=== PATIENT | female | born 1990 | race African-American/Black ===

== ENCOUNTER 2016-11-24 23:41 | Emergency (ER) | payer OTHER ==
[2016-11-25 00:08] VITALS: BP 110/66
[2016-11-25] MEDS ORDERED: Ondansetron ODT TAB* 4 MG PO ONE (00:09)
[2016-11-25 03:35] LABS: Hematocrit 38 % (35-47); Hemoglobin 12.2 g/dl (12.0-16.0); Mean Corpuscular HGB Conc 32 g/dl (31-36); Mean Corpuscular Hemoglobin 30 pg (27-31); Mean Corpuscular Volume 91 fL (80-97); Mean Platelet Volume 8 um3 (7.4-10.4); Red Blood Count 4.13 10^6/ul (4.0-5.4); Red Cell Distribution Width 14 % (10.5-15); White Blood Count 12.2 10^3/ul (3.5-10.8)
[2016-11-25 03:45] LABS: Albumin 4.3 g/dL (3.2-5.2); BUN/Creatinine Ratio 14.3 (8-20); Calcium 9.2 mg/dL (8.6-10.3); EGFR African American 80.8 (>60); EGFR Non-African American 62.9 (>60); Globulin 3.3 g/dL (2-4); Potassium 3.7 mmol/L (3.5-5.0); Total Bilirubin 0.4 mg/dL (0.2-1.0); Total Protein 7.6 g/dL (6.4-8.9)
[2016-11-25] MEDS ORDERED: Ibuprofen TAB* 400 MG PO ONE (04:50)
--- NOTE | 2016-12-13 16:22 | PN ---
Progress Note - Progress Note Note: Steph Townsend PA-C did not see this patient. Dr. Colvin was patients provider.
--- NOTE | 2016-12-16 10:46 | ED ---
Freddy Paz SooYoung, scribed for Da Colvin MD on 11/25/16 at 0253 . 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 She states her UE have been getting tingly often for past month. Pt has known ED. She says she had been walking a lot and was going to the grocery store and experienced SOB. Pt had been drinking earlier today, she is unsure of the amount. Today is her birthday, and she and others were pre-marguerite. She saw her PCP today for a weight check. PCP referred her to ED earlier today but she declined. She notes irregular menses, and is not on BC. She is a smoker. No PMHx of blood clots. - History Of Current Complaint Chief Complaint: EDSubstanceAbuse Stated Complaint: ETOH Time Seen by Provider: 11/25/16 00:09 Hx Obtained From: Patient Hx Last Menstrual Period: 2 weeks ago (approx 10/15/2016) Associated Signs And Symptoms: Shortness Of Breath, Other: - UE tingling - Allergies/Home Medications Allergies/Adverse Reactions: Allergies Allergy/AdvReac Type Severity Reaction Status Date / Time Diphenhydramine Allergy Difficulty Verified 11/27/16 10:34 [From Benadryl] Breathing/Wheezing Trazodone Allergy Difficulty Verified 11/27/16 10:34 Swallowing PMH/Surg Hx/FS Hx/Imm Hx Previously Healthy: No Endocrine/Hematology History: Reports: Hx Anemia Denies: Hx Anticoagulant Therapy, Hx Blood Disorders, Hx Blood Transfusions, Hx Bone Marrow Disease, Hx Diabetes, Hx Systemic Lupus Erythematosus, Hx Sickle Cell Disease, Hx Thyroid Disease, Hx Unexplained Bleeding, Other Endocrine/ Hematological Disorders Cardiovascular History: Denies: Hx Congestive Heart Failure, Hx Hypertension Respiratory History: Denies: Hx Asthma GI History: Reports: Hx Gastroesophageal Reflux Disease History: Denies: Hx Dialysis, Hx Renal Disease Musculoskeletal History: Reports: Hx Back Problems - low back pain from gymnastics Denies: Hx Arthritis, Hx Bursitis, Hx Congenital Bone Abnormalities, Hx Fibromyalgia, Hx Gout, Hx Orthopedic Injury, Hx Osteoporosis, Hx Scoliosis, Hx Tendonitis, Other Musculoskeletal History Sensory History: Reports: Hx Contacts or Glasses Opthamlomology History: Reports: Hx Contacts or Glasses Neurological History: Denies: Hx Dementia, Hx Developmental Delay, Hx Headaches, Hx Migraine, Hx Nerve Disease, Hx Seizures, Hx Spinal Cord Injury, Hx Transient Ischemic Attacks (TIA), Other Neuro Impairments/Disorders Psychiatric History: Reports: Hx Anxiety, Hx Attention Deficit Hyperactivity Disorder, Hx Eating Disorder, Hx Depression, Hx Panic Disorder, Hx Post Traumatic Stress Disorder, Hx Inpatient Treatment, Hx Community Mental Health Tx , Hx Suicide Attempt, Hx Substance Abuse Denies: Hx Schizophrenia, Hx Bipolar Disorder, Hx of Violent Episodes Against Others, Other Psychiatric Issues/Disorders - Surgical History Surgery Procedure, Year, and Place: pt denies - Immunization History Date of Tetanus Vaccine: Unknown Infectious Disease History: No Infectious Disease History: Denies: Hx Clostridium Difficile, Hx Hepatitis, Hx Human Immunodeficiency Virus (HIV), Hx of Known/Suspected MRSA, Hx Shingles, Hx Tuberculosis, History Other Infectious Disease, Traveled Outside the [place] in Last 30 Days - Family History Known Family History: Positive: Unknown - LEVEL 5 CAVEAT secondary to OD and AMS , Hypertension - Social History Occupation: Employed Part-time Lives: Alone Alcohol Use: Rare Hx Substance Use: No Substance Use Type: Reports: Prescribed Hx Tobacco Use: Yes Smoking Status (MU): Light Every Day Tobacco Smoker Type: Cigarettes Amount Used/How Often: 3 cigarettes or less daily Have You Smoked in the Last Year: Yes - states she smokes about three cigarettes per day Review of Systems Negative: Fever, Chills Negative: Erythema Negative: Sore Throat Negative: Chest Pain Positive: Shortness Of Breath. Negative: Cough Negative: Abdominal Pain, Vomiting, Nausea Negative: dysuria, hematuria Positive: Other - "tingling" in UE. Negative: Myalgia, Edema Negative: Rash Neurological: Other - neg: dizziness All Other Systems Reviewed And Are Negative: Yes Physical Exam - Summary Physical Exam Summary: Constitutional: Well-developed, Well-nourished, Alert. (-) Distressed Skin: Warm, Dry HENT: Normocephalic; Atraumatic Eyes: Conjunctiva normal Neck: Musculoskeletal ROM normal neck. (-) JVD, (-) Stridor, (-) Tracheal deviation Cardio: Rhythm regular, rate normal, Heart sounds normal; Intact distal pulses; The pedal pulses are 2+ and symmetric. Radial pulses are 2+ and symmetric. (-) Murmur Pulmonary/Chest wall: DIMINISHED BREATH SOUNDS IN LUNG BASES Abd: Soft, (-) Tenderness, (-) Distension, (-) Guarding, (-) Rebound Musculoskeletal: (-) Edema Lymph: (-) Cervical adenopathy Neuro: Alert, Oriented x3; NO ATAXIA Psych: Mood and affect Normal Triage Information Reviewed: Yes Vital Signs On Initial Exam: Initial Vitals Temp Pulse Resp BP Pulse Ox 98 F 93 16 110/66 98 11/25/16 00:04 11/25/16 00:04 11/25/16 00:04 11/25/16 00:04 11/25/16 00:04 Vital Signs Reviewed: Yes Diagnostics - Vital Signs Vital Signs Temp Pulse Resp BP Pulse Ox 11/25/16 00:04 98 F 93 16 110/66 98 - Laboratory Lab Results: Lab Results 11/25/16 11/25/16 Range/Units 03:15 03:15 WBC 12.2 H (3.5-10.8) 10^3/ul RBC 4.13 (4.0-5.4) 10^6/ul Hgb 12.2 (12.0-16.0) g/dl Hct 38 (35-47) % MCV 91 (80-97) fL MCH 30 (27-31) pg MCHC 32 (31-36) g/dl RDW 14 (10.5-15) % Plt Count 248 (150-450) 10^3/ul MPV 8 (7.4-10.4) um3 Sodium 137 (133-145) mmol/L Potassium 3.7 (3.5-5.0) mmol/L Chloride 105 (101-111) mmol/L Carbon Dioxide 23 (22-32) mmol/L Anion Gap 9 (2-11) mmol/L BUN 15 (6-24) mg/dL Creatinine 1.05 H (0.51-0.95) mg/dL Est GFR ( Amer) 80.8 (>60) Est GFR (Non-Af Amer) 62.9 (>60) BUN/Creatinine Ratio 14.3 (8-20) Glucose 73 (70-100) mg/dL Calcium 9.2 (8.6-10.3) mg/dL Total Bilirubin 0.40 (0.2-1.0) mg/dL AST 14 (13-39) U/L ALT 8 (7-52) U/L Alkaline Phosphatase 43 (34-104) U/L Total Protein 7.6 (6.4-8.9) g/dL Albumin 4.3 (3.2-5.2) g/dL Globulin 3.3 (2-4) g/dL Albumin/Globulin Ratio 1.3 (1-3) Serum Alcohol 74 H (<10) mg/dL Result Diagrams: 11/25/16 03:15 11/25/16 03:15 Lab Statement: Any lab studies that have been ordered have been reviewed, and results considered in the medical decision making process. Re-Evaluation - Re-Evaluation 1 Re-Evaluation Time: 04:47 Change: Improved Comment: Pt is alert, does not want to wait for d-dimer results, wants to leave. She understands risk of disability and . Course/Dx - Diagnoses Provider Diagnoses: Left against medical advice, SOB (shortness of breath) Discharge - Discharge Plan Condition: Fair Disposition: AGAINST MEDICAL ADVICE Referrals: Derek Torres MD [Primary Care Provider] - The documentation as recorded by the Freddy phipps SooYoung accurately reflects the service I personally performed and the decisions made by me, Da Colvin MD.
== END 2016-11-25 07:05 | disposition left against medical advice (07) ==
LOC: ED 23:41
DX: R06.02 Shortness of breath (principal); Z53.21 Procedure and treatment not carried out due to patient leaving prior to being seen by health care provider
CPT/HCPCS: 36415; 80053; 80320; 85027; 99283; A9270-GY; G0480

== ENCOUNTER 2016-11-27 10:24 | Emergency (ER) | payer OTHER ==
[2016-11-27 10:34] VITALS: BP 109/73
[2016-11-27] MEDS ORDERED: Ibuprofen TAB* 600 MG PO ONE (12:11)
[2016-11-27] MEDS ORDERED: Ondansetron ODT TAB* 4 MG PO ONE (12:12)
--- NOTE | 2016-11-27 12:13 | ED ---
Influenza-Like Illness - HPI Summary HPI Summary: 26 F w/ PMH of eating disorder presents with flu like symptoms. She is complaining of sore throat, headache, body aches, nausea, and chest tightness. She states that all of the symptoms started at once out of the blue. She has taken naproxen last night which helped with the body aches. She denies any fever, cough, neck pain, abdominal pain, diarrhea or constipation. She has been able to tolerate PO intake and fluids. - History of Current Complaint Chief Complaint: EDFluSymptoms Time Seen by Provider: 11/27/16 12:01 - Allergy/Home Medications Allergies/Adverse Reactions: Allergies Allergy/AdvReac Type Severity Reaction Status Date / Time Diphenhydramine Allergy Difficulty Verified 11/27/16 10:34 [From Benadryl] Breathing/Wheezing Trazodone Allergy Difficulty Verified 11/27/16 10:34 Swallowing PMH/Surg Hx/FS Hx/Imm Hx Endocrine/Hematology History: Reports: Hx Anemia Denies: Hx Anticoagulant Therapy, Hx Blood Disorders, Hx Blood Transfusions, Hx Bone Marrow Disease, Hx Diabetes, Hx Systemic Lupus Erythematosus, Hx Sickle Cell Disease, Hx Thyroid Disease, Hx Unexplained Bleeding, Other Endocrine/ Hematological Disorders Cardiovascular History: Denies: Hx Congestive Heart Failure, Hx Hypertension Respiratory History: Denies: Hx Asthma GI History: Reports: Hx Gastroesophageal Reflux Disease History: Denies: Hx Dialysis, Hx Renal Disease Musculoskeletal History: Reports: Hx Back Problems - low back pain from gymnastics Denies: Hx Arthritis, Hx Bursitis, Hx Congenital Bone Abnormalities, Hx Fibromyalgia, Hx Gout, Hx Orthopedic Injury, Hx Osteoporosis, Hx Scoliosis, Hx Tendonitis, Other Musculoskeletal History Sensory History: Reports: Hx Contacts or Glasses Opthamlomology History: Reports: Hx Contacts or Glasses Neurological History: Denies: Hx Dementia, Hx Developmental Delay, Hx Headaches, Hx Migraine, Hx Nerve Disease, Hx Seizures, Hx Spinal Cord Injury, Hx Transient Ischemic Attacks (TIA), Other Neuro Impairments/Disorders Psychiatric History: Reports: Hx Anxiety, Hx Attention Deficit Hyperactivity Disorder, Hx Eating Disorder, Hx Depression, Hx Panic Disorder, Hx Post Traumatic Stress Disorder, Hx Inpatient Treatment, Hx Community Mental Health Tx , Hx Suicide Attempt, Hx Substance Abuse Denies: Hx Schizophrenia, Hx Bipolar Disorder, Hx of Violent Episodes Against Others, Other Psychiatric Issues/Disorders - Surgical History Surgery Procedure, Year, and Place: pt denies - Immunization History Date of Tetanus Vaccine: Unknown Infectious Disease History: No Infectious Disease History: Denies: Hx Clostridium Difficile, Hx Hepatitis, Hx Human Immunodeficiency Virus (HIV), Hx of Known/Suspected MRSA, Hx Shingles, Hx Tuberculosis, History Other Infectious Disease, Traveled Outside the [place] in Last 30 Days - Family History Known Family History: Positive: Unknown - LEVEL 5 CAVEAT secondary to OD and AMS , Hypertension - Social History Alcohol Use: Rare Hx Substance Use: No Substance Use Type: Reports: Prescribed Hx Tobacco Use: Yes Smoking Status (MU): Light Every Day Tobacco Smoker Type: Cigarettes Amount Used/How Often: 3 cigarettes or less daily Have You Smoked in the Last Year: Yes - states she smokes about three cigarettes per day Review of Systems Negative: Fever Positive: Other - chest tightness. Negative: Chest Pain Negative: Shortness Of Breath, Cough Positive: Nausea. Negative: Abdominal Pain, Vomiting, Diarrhea Negative: dysuria Positive: Headache All Other Systems Reviewed And Are Negative: Yes Physical Exam Triage Information Reviewed: Yes Vital Signs On Initial Exam: Initial Vitals Temp Pulse Resp BP Pulse Ox 98.3 F 100 16 109/73 100 11/27/16 10:25 11/27/16 10:25 11/27/16 10:25 11/27/16 10:25 11/27/16 10:25 Vital Signs Reviewed: Yes Appearance: Positive: Well-Appearing Skin: Positive: Warm, Dry Head/Face: Positive: Normal Head/Face Inspection Eyes: Positive: Normal, Conjunctiva Clear ENT: Positive: Normal ENT inspection, Pharyngeal erythema, Nasal congestion, TMs normal. Negative: Tonsillar swelling, Tonsillar exudate, Trismus, Muffled/ hoarse voice Neck: Positive: Supple, Nontender, No Lymphadenopathy Respiratory/Lung Sounds: Positive: Clear to Auscultation, Breath Sounds Present , Other - chest wall nontender Cardiovascular: Positive: Normal, RRR Abdomen Description: Positive: Nontender, Soft Bowel Sounds: Positive: Present Diagnostics - Vital Signs Vital Signs Temp Pulse Resp BP Pulse Ox 11/27/16 10:25 98.3 F 100 16 109/73 100 - Laboratory Lab Statement: Any lab studies that have been ordered have been reviewed, and results considered in the medical decision making process. Re-Evaluation - Re-Evaluation First Eval Re-Evaluation Time: 13:00 Change: Improved Comment: feeling much better after zofran and ibuprofren would like to go home Flu Symptom Course/Dx - Course Course Of Treatment: 26 F presents with ore throat, headache, body aches, nausea. denies any fever or cough. has taken tyenlol for muscle aches, PE normal, got flu and strept swap and negative, able to tolerate PO intake, discussed does not want labs as feels is likely viral due to sudden onset, will treat symptomatically patient agrees with plan - Diagnoses Differential Diagnosis/HQI/PQRI: Positive: Bronchitis, Influenza, Upper Respiratory Infection Provider Diagnoses: Upper respiratory infection Discharge - Discharge Plan Condition: Good Disposition: HOME Prescriptions: Ondansetron TAB* [Zofran Tab*] 4 mg PO Q6H PRN #12 tab PRN Reason: Nausea Patient Education Materials: Upper Respiratory Infection (ED) Forms: *Work Release Referrals: Derek Torres MD [Primary Care Provider] - Additional Instructions: Take ibuprofen for muscle aches and fever. Take zofran every 6 hours for nausea Saline rinse can be used multiple times a day for nasal congestion Use humidifier in room or place bowls of warm water around room Try to drink fluids every hour and eat a small snack every 3 hours Return to ED if develop fever that does not respond to Tylenol or ibuprofen, new productive cough, or if symptoms become worst or develop new symptoms.
== END 2016-11-27 13:15 | disposition home or self-care (01) ==
LOC: ED 10:24
DX: J06.9 Acute upper respiratory infection, unspecified (principal); J02.9 Acute pharyngitis, unspecified; R51 Headache; R11.0 Nausea; F17.211 Nicotine dependence, cigarettes, in remission
CPT/HCPCS: 87502; 87651; 99282; A9270-GY

== ENCOUNTER 2017-01-20 12:32 | Emergency (ER) | payer OTHER ==
[2017-01-20] MEDS ORDERED: NS 0.9% 1000 ML* 1,000 ML IV ONE (12:51)
[2017-01-20 13:15] LABS: Hematocrit 34 % (35-47); Hemoglobin 11.4 g/dl (12.0-16.0); Mean Corpuscular HGB Conc 33 g/dl (31-36); Mean Corpuscular Hemoglobin 29 pg (27-31); Mean Corpuscular Volume 89 fL (80-97); Mean Platelet Volume 8 um3 (7.4-10.4); Red Blood Count 3.86 10^6/ul (4.0-5.4); Red Cell Distribution Width 13 % (10.5-15); White Blood Count 12.3 10^3/ul (3.5-10.8)
[2017-01-20 13:33] LABS: ALT 10 U/L (7-52); AST 14 U/L (13-39); Alkaline Phosphatase 47 U/L (34-104); Anion Gap 4 mmol/L (2-11); BUN/Creatinine Ratio 8.9 (8-20); Blood Urea Nitrogen 11 mg/dL (6-24); CO2 Carbon Dioxide 28 mmol/L (22-32); Calcium 9.2 mg/dL (8.6-10.3); Chloride 103 mmol/L (101-111); EGFR African American 66.7 (>60); EGFR Non-African American 51.9 (>60); Globulin 3.1 g/dL (2-4); Glucose 83 mg/dL (70-100); Magnesium 1.7 mg/dL (1.9-2.7); Potassium 4.7 mmol/L (3.5-5.0); Sodium 135 mmol/L (133-145); Total Protein 7.1 g/dL (6.4-8.9)
--- NOTE | 2017-01-20 13:34 | ED ---
Syncope/Near Syncope - HPI Summary HPI Summary: 26F presents with near syncope today. She states she has these episodes that last 20-30mins where she feels like she is about to pass out. She becomes very lightheaded and states that she feels short of breath and sweaty. She states that she has been told that it is caused by anxiety but she takes her medication for anxiety and it seems to have no affect. She states the last episode she had was a month ago. She states she did not have anything to eat this morning. She denies any seizure like activity. She states that she feels very weak with the episodes. She states that she also feels nauseous with the episodes. - History Of Current Complaint Chief Complaint: EDDizziness Time Seen by Provider: 01/20/17 12:50 - Allergies/Home Medications Allergies/Adverse Reactions: Allergies Allergy/AdvReac Type Severity Reaction Status Date / Time Diphenhydramine Allergy Difficulty Verified 11/27/16 10:34 [From Benadryl] Breathing/Wheezing Trazodone Allergy Difficulty Verified 11/27/16 10:34 Swallowing PMH/Surg Hx/FS Hx/Imm Hx Endocrine/Hematology History: Reports: Hx Anemia Denies: Hx Anticoagulant Therapy, Hx Blood Disorders, Hx Blood Transfusions, Hx Bone Marrow Disease, Hx Diabetes, Hx Systemic Lupus Erythematosus, Hx Sickle Cell Disease, Hx Thyroid Disease, Hx Unexplained Bleeding, Other Endocrine/ Hematological Disorders Cardiovascular History: Denies: Hx Congestive Heart Failure, Hx Hypertension Respiratory History: Denies: Hx Asthma GI History: Reports: Hx Gastroesophageal Reflux Disease History: Denies: Hx Dialysis, Hx Renal Disease Musculoskeletal History: Reports: Hx Back Problems - low back pain from gymnastics Denies: Hx Arthritis, Hx Bursitis, Hx Congenital Bone Abnormalities, Hx Fibromyalgia, Hx Gout, Hx Orthopedic Injury, Hx Osteoporosis, Hx Scoliosis, Hx Tendonitis, Other Musculoskeletal History Sensory History: Reports: Hx Contacts or Glasses Opthamlomology History: Reports: Hx Contacts or Glasses Neurological History: Denies: Hx Dementia, Hx Developmental Delay, Hx Headaches, Hx Migraine, Hx Nerve Disease, Hx Seizures, Hx Spinal Cord Injury, Hx Transient Ischemic Attacks (TIA), Other Neuro Impairments/Disorders Psychiatric History: Reports: Hx Anxiety, Hx Attention Deficit Hyperactivity Disorder, Hx Eating Disorder, Hx Depression, Hx Panic Disorder, Hx Post Traumatic Stress Disorder, Hx Inpatient Treatment, Hx Community Mental Health Tx , Hx Suicide Attempt, Hx Substance Abuse Denies: Hx Schizophrenia, Hx Bipolar Disorder, Hx of Violent Episodes Against Others, Other Psychiatric Issues/Disorders - Surgical History Surgery Procedure, Year, and Place: pt denies - Immunization History Date of Tetanus Vaccine: Unknown Infectious Disease History: No Infectious Disease History: Denies: Hx Clostridium Difficile, Hx Hepatitis, Hx Human Immunodeficiency Virus (HIV), Hx of Known/Suspected MRSA, Hx Shingles, Hx Tuberculosis, History Other Infectious Disease, Traveled Outside the [place] in Last 30 Days - Family History Known Family History: Positive: Unknown - LEVEL 5 CAVEAT secondary to OD and AMS , Hypertension - Social History Alcohol Use: Occasionally Hx Substance Use: No Substance Use Type: Reports: Prescribed Hx Tobacco Use: Yes Smoking Status (MU): Light Every Day Tobacco Smoker Type: Cigarettes Amount Used/How Often: 3 cigarettes or less daily Have You Smoked in the Last Year: Yes - states she smokes about three cigarettes per day Review of Systems Negative: Fever Negative: Chest Pain Positive: Shortness Of Breath - resolved Positive: Nausea - resolved Neurological: Other - near syncope All Other Systems Reviewed And Are Negative: Yes Physical Exam Triage Information Reviewed: Yes Vital Signs On Initial Exam: Initial Vitals Temp Pulse Resp BP Pulse Ox 98.3 F 77 16 116/63 100 01/20/17 12:42 01/20/17 12:42 01/20/17 12:42 01/20/17 12:42 01/20/17 12:42 Vital Signs Reviewed: Yes Appearance: Positive: Well-Appearing Skin: Positive: Warm, Dry Head/Face: Positive: Normal Head/Face Inspection Eyes: Positive: Normal, Conjunctiva Clear ENT: Positive: Normal ENT inspection, Pharynx normal, TMs normal Respiratory/Lung Sounds: Positive: Clear to Auscultation, Breath Sounds Present Cardiovascular: Positive: Normal, RRR Abdomen Description: Positive: Nontender, Soft Bowel Sounds: Positive: Present Neurological: Positive: Sensory/Motor Intact, Alert, Oriented to Person Place, Time, CN Intact II-III - Froylan Coma Scale Best Eye Response: 4 - Spontaneous Best Motor Response: 6 - Obeys Commands Best Verbal Response: 5 - Oriented Coma Scale Total: 15 Diagnostics - Vital Signs Vital Signs Temp Pulse Resp BP Pulse Ox 01/20/17 12:42 98.3 F 77 16 116/63 100 - Laboratory Lab Results: Lab Results 01/20/17 Range/Units 13:00 WBC 12.3 H (3.5-10.8) 10^3/ul RBC 3.86 L (4.0-5.4) 10^6/ul Hgb 11.4 L (12.0-16.0) g/dl Hct 34 L (35-47) % MCV 89 (80-97) fL MCH 29 (27-31) pg MCHC 33 (31-36) g/dl RDW 13 (10.5-15) % Plt Count 259 (150-450) 10^3/ul MPV 8 (7.4-10.4) um3 Neut % (Auto) 84.3 H (38-83) % Lymph % (Auto) 9.8 L (25-47) % [place] % (Auto) 5.0 (1-9) % Eos % (Auto) 0.8 (0-6) % Baso % (Auto) 0.1 (0-2) % Absolute Neuts (auto) 10.4 H (1.5-7.7) 10^3/ul Absolute Lymphs (auto) 1.2 (1.0-4.8) 10^3/ul Absolute Monos (auto) 0.6 (0-0.8) 10^3/ul Absolute Eos (auto) 0.1 (0-0.6) 10^3/ul Absolute Basos (auto) 0 (0-0.2) 10^3/ul Absolute Nucleated RBC 0 10^3/ul Nucleated RBC % 0 Result Diagrams: 01/20/17 13:00 01/20/17 13:00 Lab Statement: Any lab studies that have been ordered have been reviewed, and results considered in the medical decision making process. - CT brain CT Interpretation: No Acute Changes CT Interpretation Completed By: Radiologist - EKG No standard instances Cardiac Rate: NL EKG Rhythm: Sinus Rhythm ST Segment: Normal Course/Dx Course Of Treatment: 26F presents with near syncope. She did not have anything to eat this morning. She states she has these episodes were she feels short of breath, nausea, and feels like she is about to pass out. She has history of anxiety and was told to take klonipin when have symptoms. She says lying down seems to help more. She states that now her symptoms have resolved and she just filled tired. She denies any seizure like activity. discussed labs with patient. does have a high WBC but denies any symptoms of infection currently beside being tired. EKG normal. CT brain normal. gave fluids and says that feels better. discussed could be due to not etting and being dehydrated so should keep snack with her and drink frequently. told to follow up with primary and may need to see neurology in the future. patient understands and agrees with plan - Diagnoses Differential Diagnosis/HQI/PQRI: Positive: Hypoglycemia, Hypovolemia, Other - anxeity Provider Diagnoses: Near syncope Discharge - Discharge Plan Condition: Good Disposition: HOME Patient Education Materials: Near Syncope (ED) Referrals: No Primary Care Phys,NOPCP [Primary Care Provider] - Additional Instructions: Follow up with primary with in 5 days Eat breakfast and drink fluid through day Return to ED if develop any new or worsening symptoms
[2017-01-20 14:10] LABS: Urine Bilirubin Negative (Negative); Urine Glucose Negative (Negative); Urine Nitrite Negative (Negative)
--- NOTE | 2017-01-20 14:27 | RAD ---
INDICATION: Dizziness COMPARISON: CT brain September 25, 2016 TECHNIQUE: Noncontrast axial source images were acquired from the skull base to the vertex. FINDINGS: Ventricles/sulci: The ventricles and cisterns are normal in size and configuration for age. Brain parenchyma: There is no focal parenchymal finding, evidence of intracranial mass, or intracranial mass effect. Intracranial hemorrhage:None. Extra-axial spaces: There are no abnormal extra axial fluid collections or evidence of extra-axial mass. Calvarium: There is no calvarial fracture or other new calvarial abnormality. There is an area of stable rarefaction in the right posterior parietal region Scalp: There is no evidence of scalp or extracalvarial soft tissue abnormality. Paranasal sinuses/mastoid: The paranasal sinuses and mastoid air cells are clear. Other: None. IMPRESSION: No acute intracranial findings
[2017-01-20 14:44] VITALS: BP 112/67
== END 2017-01-20 14:43 | disposition home or self-care (01) ==
LOC: ED 12:32
DX: R55 Syncope and collapse (principal); R06.02 Shortness of breath; R11.0 Nausea; F17.210 Nicotine dependence, cigarettes, uncomplicated
CPT/HCPCS: 36415; 70450; 80053; 81003; 83735; 84702; 85025; 93005; 96360; 99283

== ENCOUNTER → 2017-05-02 01:24 | Emergency (ER) | payer OTHER ==
[~2017-05-02 01:24] MED LIST: Haloperidol INJ IV/IM* 5 MG/ML AMP IM ONE; LORazepam INJ* 2 MG/ML 1 ML VIAL IM ONE
[2017-05-02 03:04] LABS: Urine Bilirubin Negative (Negative); Urine Glucose Negative (Negative); Urine Nitrite Negative (Negative)
[2017-05-02 03:06] LABS: Benzodiazepine Urine Screen None Detected (None Detect)
[2017-05-02 03:08] LABS: Hematocrit 35 % (35-47); Hemoglobin 11.6 g/dl (12.0-16.0); Mean Corpuscular HGB Conc 33 g/dl (31-36); Mean Corpuscular Hemoglobin 30 pg (27-31); Mean Corpuscular Volume 89 fL (80-97); Mean Platelet Volume 8 um3 (7.4-10.4); Red Blood Count 3.94 10^6/ul (4.0-5.4); Red Cell Distribution Width 16 % (10.5-15); White Blood Count 5.3 10^3/ul (3.5-10.8)
[2017-05-02 03:20] LABS: ALT 9 U/L (7-52); AST 16 U/L (13-39); Alkaline Phosphatase 53 U/L (34-104); Anion Gap 7 mmol/L (2-11); BUN/Creatinine Ratio 11.5 (8-20); Blood Urea Nitrogen 10 mg/dL (6-24); CO2 Carbon Dioxide 25 mmol/L (22-32); Calcium 8.7 mg/dL (8.6-10.3); Chloride 110 mmol/L (101-111); EGFR African American 100.4 (>60); EGFR Non-African American 78.1 (>60); Globulin 3.1 g/dL (2-4); Glucose 89 mg/dL (70-100); Potassium 3.4 mmol/L (3.5-5.0); Sodium 142 mmol/L (133-145); Total Protein 7.1 g/dL (6.4-8.9)
[2017-05-02 04:00] LABS: Acetaminophen < 15 mcg/mL; Alcohol 184 mg/dL (<10); Salicylate < 2.50 mg/dL (<30)
[2017-05-02 04:10] LABS: TSH (Thyroid Stimulating Horm) 0.86 mcIU/mL (0.34-5.60)
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
[2017-05-02 05:43] VITALS: BP 105/62
== END ==
LOC: ED 01:24
DX: T42.4X1A Poisoning by benzodiazepines, accidental (unintentional), initial encounter (principal); Y92.9 Unspecified place or not applicable; R41.82 Altered mental status, unspecified; F17.210 Nicotine dependence, cigarettes, uncomplicated
CPT/HCPCS: 36415; 80053; 80307; 80320; 80329; 81003; 84443; 85025; 96372; 99285; G0480; J1630; J2060

== ENCOUNTER → 2017-05-18 01:14 | Emergency (ER) | payer OTHER ==
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
[2017-05-18 02:15] LABS: Hematocrit 35 % (35-47); Hemoglobin 11.6 g/dl (12.0-16.0); Mean Corpuscular HGB Conc 33 g/dl (31-36); Mean Corpuscular Hemoglobin 29 pg (27-31); Mean Corpuscular Volume 90 fL (80-97); Mean Platelet Volume 8 um3 (7.4-10.4); Red Blood Count 3.94 10^6/ul (4.0-5.4); Red Cell Distribution Width 16 % (10.5-15); White Blood Count 7.6 10^3/ul (3.5-10.8)
[2017-05-18 02:24] LABS: Urine Bacteria 3+ (Absent); Urine Bilirubin Negative (Negative); Urine Glucose Negative (Negative); Urine Nitrite Negative (Negative)
[2017-05-18 02:25] LABS: ALT 10 U/L (7-52); AST 16 U/L (13-39); Albumin 4.2 g/dL (3.2-5.2); Alkaline Phosphatase 58 U/L (34-104); Anion Gap 7 mmol/L (2-11); BUN/Creatinine Ratio 9.2 (8-20); Blood Urea Nitrogen 11 mg/dL (6-24); CO2 Carbon Dioxide 24 mmol/L (22-32); Calcium 9.1 mg/dL (8.6-10.3); Chloride 105 mmol/L (101-111); EGFR Non-African American 54.4 (>60); Globulin 3.6 g/dL (2-4); Glucose 96 mg/dL (70-100); Potassium 3.7 mmol/L (3.5-5.0); Sodium 136 mmol/L (133-145); Total Protein 7.8 g/dL (6.4-8.9)
[2017-05-18 02:27] LABS: Benzodiazepine Urine Screen None Detected (None Detect)
[2017-05-18 03:09] LABS: Acetaminophen < 15 mcg/mL; Alcohol 105 mg/dL (<10); Salicylate < 2.50 mg/dL (<30)
[2017-05-18 03:20] LABS: TSH (Thyroid Stimulating Horm) 2.73 mcIU/mL (0.34-5.60)
[2017-05-18 07:39] VITALS: BP 113/76
--- NOTE | 2017-05-18 16:42 | ED ---
Progress - Progress Note Progress Note: Patient was seen by Dr. Montesinos form psychiatry and he recommends to discharge the patient home with outpatient follow up. Patient is hemodynamically stable and A+O x 3. - Consult/PCP Time Called: 07:23 Course/Dx - Course Course Of Treatment: Patient BIBA with police at bedside. Multiple lacerations to the forearms - old and new. See HPI. Denies SI/HI. Self harm this evening. - Diagnoses Provider Diagnoses: PTSD (post-traumatic stress disorder)
== END | disposition home or self-care (01) ==
LOC: ED 01:14
DX: F43.10 Post-traumatic stress disorder, unspecified (principal)
CPT/HCPCS: 36415; 80053; 80307; 80320; 80329; 81003; 81015; 84443; 85025; 87086; 99282; G0480

== ENCOUNTER 2017-05-24 09:05 | Emergency (ER) | payer OTHER ==
--- NOTE | 2017-05-24 09:18 | ED ---
Lower Extremity - HPI Summary HPI Summary: 26 female presents with complaints of left ankle pain that began yesterday after landing on it wrong while in dance class. Patient states it twisted and she landed on the lateral side of her ankle. Has not taken any medication for it as she has a tonsillectomy schedule for 11:15am today 05/24/17. Patient admits to some swelling. Denies any other pain or injuries. Has not been able to move or walk on it due to the pain. Denies PMHx besides anxiety. - History of Current Complaint Chief Complaint: EDExtremityLower Stated Complaint: LT ANKLE INJURY Time Seen by Provider: 05/24/17 09:11 Hx Obtained From: Patient Hx Last Menstrual Period: recently Mechanism Of Injury: Twisted Onset of Pain: Days - yesterday 05/23 Onset/Duration: Still Present - 1 Severity Initially: Moderate Severity Currently: Moderate Pain Intensity: 9 Pain Scale Used: 0-10 Numeric Timing: Constant Location: Is Discrete @ - left lateral ankle Character Of Pain: Sharp, Aching Associated Signs And Symptoms: Positive: Swelling Aggravating Factor(s): Standing, Ambulation, Movement, Weight Bearing Alleviating Factor(s): Rest Able to Bear Weight: Yes - however painful - Allergies/Home Medications Allergies/Adverse Reactions: Allergies Allergy/AdvReac Type Severity Reaction Status Date / Time Diphenhydramine Allergy Difficulty Verified 05/18/17 01:24 [From Benadryl] Breathing/Wheezing Trazodone Allergy Difficulty Verified 05/18/17 01:24 Swallowing Seasonal Allergy Congestion Uncoded 05/18/17 01:24 PMH/Surg Hx/FS Hx/Imm Hx Endocrine/Hematology History: Reports: Hx Anemia - using diet to improve anemia Denies: Hx Anticoagulant Therapy, Hx Blood Disorders, Hx Blood Transfusions, Hx Bone Marrow Disease, Hx Diabetes, Hx Systemic Lupus Erythematosus, Hx Sickle Cell Disease, Hx Thyroid Disease, Hx Unexplained Bleeding, Other Endocrine/ Hematological Disorders Cardiovascular History: Reports: Other Cardiovascular Problems/Disorders - hx syncope, pt states she takes Pindolol for nightmares Denies: Hx Congestive Heart Failure, Hx Hypertension Respiratory History: Denies: Hx Asthma GI History: Reports: Hx Gastroesophageal Reflux Disease - controlled with medication History: Reports: Other Problems/Disorders - kidney function is monitored per pt. Denies: Hx Dialysis, Hx Renal Disease Musculoskeletal History: Reports: Hx Arthritis - back, pt was a gymnast, Hx Back Problems - low back pain from gymnastics Denies: Hx Bursitis, Hx Congenital Bone Abnormalities, Hx Fibromyalgia, Hx Gout, Hx Orthopedic Injury, Hx Osteoporosis, Hx Scoliosis, Hx Tendonitis, Other Musculoskeletal History Sensory History: Reports: Hx Contacts or Glasses - occ. for distance Denies: Hx Hearing Aid Opthamlomology History: Reports: Hx Contacts or Glasses - occ. for distance Neurological History: Denies: Hx Dementia, Hx Developmental Delay, Hx Headaches, Hx Migraine, Hx Nerve Disease, Hx Seizures, Hx Spinal Cord Injury, Hx Transient Ischemic Attacks (TIA), Other Neuro Impairments/Disorders Psychiatric History: Reports: Hx Anxiety - controlled with medication and therapy, Hx Attention Deficit Hyperactivity Disorder, Hx Eating Disorder, Hx Depression - controlled with medication and therapy, Hx Panic Disorder, Hx Post Traumatic Stress Disorder, Hx Inpatient Treatment, Hx Community Mental Health Tx , Hx Suicide Attempt, Hx Substance Abuse Denies: Hx Schizophrenia, Hx Bipolar Disorder, Hx of Violent Episodes Against Others, Other Psychiatric Issues/Disorders - Surgical History Surgery Procedure, Year, and Place: wisdom teeth 2013? endoscopy 2014 Hx Anesthesia Reactions: No - Immunization History Date of Tetanus Vaccine: Unknown Infectious Disease History: Denies: Hx Clostridium Difficile, Hx Hepatitis, Hx Human Immunodeficiency Virus (HIV), Hx of Known/Suspected MRSA, Hx Shingles, Hx Tuberculosis, History Other Infectious Disease, Traveled Outside the [place] in Last 30 Days - Family History Known Family History: Positive: Unknown - LEVEL 5 CAVEAT secondary to OD and AMS , Hypertension - Social History Alcohol Use: Occasionally Alcohol Amount: 3 x week, 3-4 drinks each time Hx Substance Use: No Substance Use Type: Reports: None, Prescribed Hx Tobacco Use: Yes Smoking Status (MU): Light Every Day Tobacco Smoker Type: Cigarettes Amount Used/How Often: 3 cigarettes or less daily, pt has smoked for approx 1 yr. Have You Smoked in the Last Year: Yes - states she smokes about three cigarettes per day Review of Systems Constitutional: Negative Cardiovascular: Negative Respiratory: Negative Gastrointestinal: Negative Positive: Arthralgia, Myalgia, Decreased ROM, Edema - left ankle Skin: Negative Neurological: Negative All Other Systems Reviewed And Are Negative: Yes Physical Exam Triage Information Reviewed: Yes Vital Signs On Initial Exam: Initial Vitals Temp Pulse Resp BP Pulse Ox 98.2 F 93 18 113/74 95 05/24/17 09:07 05/24/17 09:07 05/24/17 09:07 05/24/17 09:07 05/24/17 09:07 Vital Signs Reviewed: Yes Appearance: Positive: Well-Appearing, No Pain Distress, Well-Nourished Skin: Positive: Warm, Skin Color Reflects Adequate Perfusion, Dry. Negative: Numb, Tender, Cyanosis @, Diaphoretic Head/Face: Positive: Normal Head/Face Inspection Eyes: Positive: Normal, Conjunctiva Clear ENT: Positive: Hearing grossly normal Neck: Positive: Supple, Nontender Respiratory/Lung Sounds: Positive: Clear to Auscultation, Breath Sounds Present. Negative: Rales, Rhonchi, Wheezes Cardiovascular: Positive: Normal, RRR, Pulses are Symmetrical in both Upper and Lower Extremities - 2+ pedal b/l. Negative: Murmur, Rub, Leg Edema Left, Leg Edema Right Musculoskeletal: Positive: Limited @ - left ankle with all directions due to pain, better with passive ROM, Pain @ - left ankle lateral malleolus on palpation, Edema Left - over lateral malleolus minimal when compared to right side, Other - no crepitus, obvious deformity, step off or ecchymosis noted. Thomspon test negative. Negative: Interruption @ Neurological: Positive: Normal, Sensory/Motor Intact - sensation intact, Alert, Oriented to Person Place, Time, CN Intact II-III, Reflexes Intact, NV Bundle Intact Distally, Normal Gait Psychiatric: Positive: Affect/Mood Appropriate AVPU Assessment: Alert Diagnostics - Vital Signs Vital Signs Temp Pulse Resp BP Pulse Ox 05/24/17 09:07 98.2 F 93 18 113/74 95 - Laboratory Lab Statement: Any lab studies that have been ordered have been reviewed, and results considered in the medical decision making process. - Radiology left ankle Xray Interpretation: No Acute Changes - There is no acute fracture or dislocation. There is lateral soft tissue swelling. Radiology Interpretation Completed By: Radiologist Lower Extremity Course/Dx - Course Course Of Treatment: x-ray obtained and negative for fracture. Given nikos bandage , brace and crutches were already supplied, they were properly sized. no meds given for pain or inflammation due to patient having a tonsillectomy at 11:15am today. No concern for other etiology at this time. Follow up with PCP. NSAIDs when okayed by surgeon. Aware of worsening signs and symptoms to watch out for. - Diagnoses Differential Diagnosis/HQI/PQRI: Positive: Contusion, Dislocation, Fracture ( Closed), Infection, Sprain, Strain Provider Diagnoses: Left ankle sprain Discharge - Discharge Plan Condition: Stable Disposition: HOME Patient Education Materials: Ankle Sprain (ED) Referrals: Derek Torres MD [Primary Care Provider] - Additional Instructions: Wear nikos bandage and brace for the next week to help with support and swelling. Use crutches for the next 5-7 days as needed to allow time for ankle sprain to heal. Avoid physical activity until symptoms have fully improved. Sprains sometimes take longer to heal than breaks and can be fragile even after healing. Take it easy. Take pain medication such as ibuprofen when safe after your surgery and following surgeons direction. Elevate and ice. After 5 days heat and try and move your ankle around as tolerated, slowly. Follow up with PCP. If symptoms persist, worsen, or new symptoms develop please seek medical attention promptly.
--- NOTE | 2017-05-24 09:38 | RAD ---
INDICATION: Left ankle pain COMPARISON: None TECHNIQUE: AP, lateral, and oblique views were obtained. FINDINGS: There is no acute fracture or dislocation. There is lateral soft tissue swelling. IMPRESSION: SOFT TISSUE SWELLING.
[2017-05-24 10:35] VITALS: BP 117/52
== END 2017-05-24 10:34 | disposition home or self-care (01) ==
LOC: ED 09:05
DX: S93.402A Sprain of unspecified ligament of left ankle, initial encounter (principal); X58.XXXA Exposure to other specified factors, initial encounter; Y93.41 Activity, dancing; Y92.9 Unspecified place or not applicable; K21.9 Gastro-esophageal reflux disease without esophagitis; F90.9 Attention-deficit hyperactivity disorder, unspecified type; F41.9 Anxiety disorder, unspecified; F32.9 Major depressive disorder, single episode, unspecified; F17.210 Nicotine dependence, cigarettes, uncomplicated
CPT/HCPCS: 99282

== ENCOUNTER 2017-05-24 11:26 | Day surgery (SDC) | payer OTHER ==
--- NOTE | 2017-05-18 16:38 | ED ---
Progress - Progress Note Progress Note: Patient was seen by Dr. Montesinos form psychiatry and he recommends to discharge the patient home with outpatient follow up. Patient is hemodynamically stable and A+O x 3. Course/Dx - Diagnoses Provider Diagnoses: PTSD (post-traumatic stress disorder)
[~2017-05-24 11:26] MED LIST changes: +Buffered Lidocaine 0.9% SYRIN* 5 ML/SYR SYRINGE INTRADERM ONE; +Famotidine TAB* 20 MG PO ONE; -Haloperidol INJ IV/IM* 5 MG/ML AMP IM ONE; -LORazepam INJ* 2 MG/ML 1 ML VIAL IM ONE; +Metoclopramide TAB* 10 MG PO ONE; +Scopolamine 1.5 mg* PATCH TRANSDERM ONE; +Sodium Citrate/Citric Acid* 15 ML UDC PO ONE
[2017-05-24] MEDS ORDERED: Sodium Citrate/Citric Acid* 15 ML UDC ONE (11:32)
[2017-05-24] MEDS ORDERED: Metoclopramide TAB* 10 MG ONE (11:32)
[2017-05-24] MEDS ORDERED: Famotidine TAB* 20 MG ONE (11:32)
[2017-05-24] MEDS ORDERED: Scopolamine 1.5 mg* PATCH ONE (11:32)
[2017-05-24] MEDS ORDERED: Buffered Lidocaine 0.9% SYRIN* 5 ML/SYR SYRINGE ONE (11:32)
[2017-05-24 11:57] LABS: Manual Entry Verification JEA0012; UR Preg Internal Control QC Line Present
[2017-05-24] MEDS ORDERED: fentaNYL* 50 MCG/ML 2 ML VIAL (100 MCG VIAL) ONE (12:49)
[2017-05-24] MEDS ORDERED: Lidocaine 2% PF * 5 ML VIAL ONE (12:50)
[2017-05-24] MEDS ORDERED: Succinylcholine* 20 MG/ML 10 ML VIAL ONE (12:50)
[2017-05-24] MEDS ORDERED: Ondansetron INJ* 2 MG/ML VIAL ONE (12:50)
[2017-05-24] MEDS ORDERED: Dexamethasone IV* 4 MG/ML 1 ML (4 MG) ONE (12:50)
[2017-05-24] MEDS ORDERED: Propofol* 10 MG/ML 20 ML BTL IV PUSH ONE (12:50)
[2017-05-24] MEDS ORDERED: DiMENhydriNATE IV* 50 MG/ML VIAL IV PUSH PRN (13:10)
[2017-05-24] MEDS ORDERED: Acetaminophen IV 1GM/100ML * 10 MG/ML VIAL IVPB ONE (13:10)
[2017-05-24] MEDS ORDERED: fentaNYL* 50 MCG/ML 2 ML VIAL (100 MCG VIAL) IV PRN (13:10)
[2017-05-24] MEDS ORDERED: Acetaminophen IV 1GM/100ML * 100 ML ONE (13:41)
[2017-05-24 14:42] VITALS: BP 103/69
--- NOTE | 2017-05-25 11:01 | OP ---
DATE OF OPERATION: 05/24/17 - [facility] DATE OF : 88 SURGEON: Peter Morgan MD ANESTHESIOLOGIST: Bryce Foley MD ANESTHESIA: General PRE-OP DIAGNOSIS: Chronic tonsillitis. POST-OP DIAGNOSIS: Chronic tonsillitis. OPERATIVE PROCEDURE: Tonsillectomy. BRIEF HISTORY: This is a 26-year-old with chronic-appearing tonsillitis, elected for surgical therapy. DESCRIPTION OF PROCEDURE: The patient was taken to the operating room, general anesthetic was given, the patient was intubated. Tongue, mandible, and soft palate were retracted. Coblator was used to remove the tonsils. Once hemostasis was obtained, the patient was awakened, sent to the recovery room in stable condition. Instrument and sponge count correct. Blood loss minimal. [id number]/CPS #: [id number] MTDD
[2017-05-27] MEDS ORDERED: Scopolomine PATCH Remove* 1 NOTE MISC PATCH OFF ONE (06:00)
== END 2017-05-24 15:06 | disposition home or self-care (01) ==
LOC: OR 11:26
PROVIDERS: ATTEND Otolaryngology
DX: J35.01 Chronic tonsillitis (principal); K21.9 Gastro-esophageal reflux disease without esophagitis; F32.9 Major depressive disorder, single episode, unspecified; F41.9 Anxiety disorder, unspecified; J30.2 Other seasonal allergic rhinitis; Z87.891 Personal history of nicotine dependence
CPT/HCPCS: 81025; 88304; A9270-GY; J0330; J1100; J2405; J2704; J3010

== ENCOUNTER 2017-06-14 00:21 | Inpatient (IN) | payer OTHER ==
[2017-06-14] MEDS ORDERED: Ondansetron INJ* 2 MG/ML VIAL IV ONE (00:36)
[2017-06-14 01:08] LABS: Hematocrit 35 % (35-47); Hemoglobin 11.4 g/dl (12.0-16.0); Mean Corpuscular HGB Conc 32 g/dl (31-36); Mean Corpuscular Hemoglobin 29 pg (27-31); Mean Corpuscular Volume 88 fL (80-97); Mean Platelet Volume 8 um3 (7.4-10.4); Red Cell Distribution Width 16 % (10.5-15); White Blood Count 14.9 10^3/ul (3.5-10.8)
[2017-06-14 01:13] LABS: Urine Bacteria 1+ (Absent); Urine Bilirubin Negative (Negative); Urine Glucose Negative (Negative); Urine Nitrite Negative (Negative)
[2017-06-14 01:20] LABS: ALT 13 U/L (7-52); Albumin 3.9 g/dL (3.2-5.2); Alkaline Phosphatase 55 U/L (34-104); BUN/Creatinine Ratio 9.9 (8-20); Blood Urea Nitrogen 10 mg/dL (6-24); CO2 Carbon Dioxide 23 mmol/L (22-32); Calcium 8.8 mg/dL (8.6-10.3); Chloride 104 mmol/L (101-111); EGFR African American 84.6 (>60); EGFR Non-African American 65.7 (>60); Globulin 3.6 g/dL (2-4); Glucose 86 mg/dL (70-100); Sodium 135 mmol/L (133-145); Total Protein 7.5 g/dL (6.4-8.9)
[2017-06-14 01:21] LABS: Acetaminophen < 15 mcg/mL; Alcohol 110 mg/dL (<10); Salicylate < 2.50 mg/dL (<30)
[2017-06-14 01:24] LABS: Benzodiazepine Urine Screen None Detected (None Detect)
[2017-06-14 01:26] LABS: AST 19 U/L (13-39); Anion Gap 8 mmol/L (2-11); Potassium 4.9 mmol/L (3.5-5.0)
[2017-06-14 01:31] LABS: TSH (Thyroid Stimulating Horm) 1.72 mcIU/mL (0.34-5.60)
--- NOTE | 2017-06-14 01:33 | ED ---
Freddy Paz SooYoung, scribed for Micah Mejia MD on 06/14/17 at 0027 . Substance Abuse/Use - HPI Summary HPI Summary: A 26 y/o F CALEB presents to ED after overdose. Per EMS and police: pt was found on her couch in her living unresponsive, roommates unaware of what happened. Pt got Narcan 2x by Fire and woke up, roommates state there are suicide notes but police not in possession of them. Unknown amount of ETOH and or pills consumed. Pt denies taking anything. Associated sx: vomiting. Pert PMHx: self-harm, SI. - History Of Current Complaint Stated Complaint: UNRESPONSIVE Hx Obtained From: Patient Hx Last Menstrual Period: recently Associated Signs And Symptoms: Vomiting, Intentional Ingestion Related Hx: Suicidal - Allergies/Home Medications Allergies/Adverse Reactions: Allergies Allergy/AdvReac Type Severity Reaction Status Date / Time Diphenhydramine Allergy Difficulty Verified 06/14/17 14:41 [From Benadryl] Breathing/Wheezing Trazodone Allergy Difficulty Verified 06/14/17 14:41 Swallowing Seasonal Allergy Congestion Uncoded 05/24/17 11:48 PMH/Surg Hx/FS Hx/Imm Hx Previously Healthy: No Endocrine/Hematology History: Reports: Hx Anemia - using diet to improve anemia Denies: Hx Anticoagulant Therapy, Hx Blood Disorders, Hx Blood Transfusions, Hx Bone Marrow Disease, Hx Diabetes, Hx Systemic Lupus Erythematosus, Hx Sickle Cell Disease, Hx Thyroid Disease, Hx Unexplained Bleeding, Other Endocrine/ Hematological Disorders Cardiovascular History: Reports: Other Cardiovascular Problems/Disorders - hx syncope, pt states she takes Pindolol for nightmares Denies: Hx Congestive Heart Failure, Hx Hypertension Respiratory History: Denies: Hx Asthma GI History: Reports: Hx Gastroesophageal Reflux Disease - controlled with medication History: Reports: Other Problems/Disorders - kidney function is monitored per pt. Denies: Hx Dialysis, Hx Renal Disease Musculoskeletal History: Reports: Hx Arthritis - back, pt was a gymnast, Hx Back Problems - low back pain from gymnastics Denies: Hx Bursitis, Hx Congenital Bone Abnormalities, Hx Fibromyalgia, Hx Gout, Hx Orthopedic Injury, Hx Osteoporosis, Hx Scoliosis, Hx Tendonitis, Other Musculoskeletal History Sensory History: Reports: Hx Contacts or Glasses - occ. for distance Denies: Hx Hearing Aid Opthamlomology History: Reports: Hx Contacts or Glasses - occ. for distance Neurological History: Denies: Hx Dementia, Hx Developmental Delay, Hx Headaches, Hx Migraine, Hx Nerve Disease, Hx Seizures, Hx Spinal Cord Injury, Hx Transient Ischemic Attacks (TIA), Other Neuro Impairments/Disorders Psychiatric History: Reports: Hx Anxiety - controlled with medication and therapy, Hx Attention Deficit Hyperactivity Disorder, Hx Eating Disorder, Hx Depression - controlled with medication and therapy, Hx Panic Disorder, Hx Post Traumatic Stress Disorder, Hx Inpatient Treatment, Hx Community Mental Health Tx , Hx Suicide Attempt, Hx Substance Abuse Denies: Hx Schizophrenia, Hx Bipolar Disorder, Hx of Violent Episodes Against Others, Other Psychiatric Issues/Disorders - Surgical History Surgery Procedure, Year, and Place: wisdom teeth 2013? endoscopy 2014 Hx Anesthesia Reactions: No - Immunization History Date of Tetanus Vaccine: Unknown Infectious Disease History: Denies: Hx Clostridium Difficile, Hx Hepatitis, Hx Human Immunodeficiency Virus (HIV), Hx of Known/Suspected MRSA, Hx Shingles, Hx Tuberculosis, History Other Infectious Disease - Family History Known Family History: Positive: Unknown - LEVEL 5 CAVEAT secondary to OD and AMS , Hypertension - Social History Occupation: Employed Part-time Lives: With Family - roommates Alcohol Use: Occasionally Alcohol Amount: 3 x week, 3-4 drinks each time Hx Substance Use: Yes Substance Use Type: Reports: Prescribed Hx Tobacco Use: Yes Smoking Status (MU): Light Every Day Tobacco Smoker Type: Cigarettes Amount Used/How Often: 3 cigarettes or less daily, pt has smoked for approx 1 yr. Have You Smoked in the Last Year: Yes - states she smokes about three cigarettes per day Review of Systems Negative: Fever Positive: Vomiting Psychological: Other - pos: SI All Other Systems Reviewed And Are Negative: Yes Physical Exam Triage Information Reviewed: Yes Vital Signs Reviewed: Yes Appearance: Positive: No Pain Distress, Thin Skin: Positive: Warm Head/Face: Positive: Normal Head/Face Inspection Eyes: Positive: EDGARD ENT: Positive: Hearing grossly normal Neck: Positive: Supple Respiratory/Lung Sounds: Positive: Clear to Auscultation, Breath Sounds Present Cardiovascular: Positive: RRR Abdomen Description: Positive: Nontender, No Organomegaly, Soft Bowel Sounds: Positive: Present Musculoskeletal: Positive: Strength/ROM Intact Neurological: Positive: Alert, Oriented to Person Place, Time Psychiatric: Positive: Anxious Diagnostics - Laboratory Result Diagrams: 06/14/17 00:51 08/09/17 00:51 Lab Statement: Any lab studies that have been ordered have been reviewed, and results considered in the medical decision making process. Course/Dx - Course Course Of Treatment: Pt given Zofran in ED. Blood work and labs are without significant abnormalities. Serum alcohol is 110. UA results show trace leukocyte esterase, 1+ bacteria, squamous epithelia present and specific gravity of 1.009. Pt medically cleared for MHE at 0138. - Diagnoses Provider Diagnoses: Mood disorder Discharge - Discharge Plan Condition: Fair Disposition: [facility]ATRIC FACILITY-[facility] [place] Discharge Disposition Comment: SO at shift change, pending MHE. The documentation as recorded by the Freddy phipps SooYoung accurately reflects the service I personally performed and the decisions made by me, Micah Mejia MD.
[2017-06-14] MEDS ORDERED: Acetaminophen TAB* 325 MG PO PRN (10:27)
[2017-06-14] MEDS ORDERED: Al Hydrox/Mg Hydrox/Simet LIQ* 30 ML UDC PO PRN (10:27)
[2017-06-14] MEDS ORDERED: clonazePAM TAB(*) 1 MG PO ONE (10:45)
--- NOTE | 2017-06-14 11:06 | ED ---
Raheem Paz Alfonso, scribed for Rashaun Leonard MD on 06/14/17 at 1050 . Progress - Progress Note Progress Note: This patient was medically cleared for MHE at 0138. This patient was signed out from Dr. Mejia, pending disposition, awaiting MHE. Dr. Mejia medically cleared patient. After MHE, Dr. Gilbert has deemed the patient's condition stable and will admit the patient to [facility] with a diagnosis of Mood Disorder. - Consult/PCP Time Called: 09:35 Course/Dx - Course Course Of Treatment: This patient was medically cleared for MHE at 0138. This patient was signed out from Dr. Mejia, pending disposition, awaiting MHE. After MHE, Dr. Gilbert has deemed the patient's condition stable and will admit the patient to [facility] with a diagnosis of Mood Disorder. - Diagnoses Provider Diagnoses: Mood disorder The documentation as recorded by the Raheem phipps Alfonso accurately reflects the service I personally performed and the decisions made by , Rashaun Leonard MD.
[2017-06-14] MEDS ORDERED: clonazePAM TAB(*) 0.5 MG PO ONE (12:00)
[2017-06-14] MEDS: Vitamin THERAPEUTIC TAB PO SCH (12:02)
[2017-06-14] MEDS: Nicotine Inhaler* 10 MG AMP INH PRN (19:11)
[2017-06-14] MEDS ORDERED: Nicotine Inhaler* 10 MG AMP ONE (19:11)
[2017-06-14] MEDS: clonazePAM TAB(*) 0.5 MG PO SCH (21:26)
[2017-06-14] MEDS: QUEtiapine TAB* 25 MG PO SCH (21:27)
[2017-06-14] MEDS: CMCS: Vilazodone (NF) 40 MG TAB PO SCH (21:28)
[2017-06-14] MEDS: PINDOLOL 10 MG PO SCH (21:28)
[2017-06-15] MEDS: clonazePAM TAB(*) 0.5 MG PO SCH ×2 (09:11→13:06)
[2017-06-15] MEDS: Omeprazole CAP* 20 MG PO SCH (09:11)
[2017-06-15] MEDS: Vitamin THERAPEUTIC TAB PO SCH (09:12)
--- NOTE | 2017-06-15 13:15 | PN ---
[facility]: Group Therapy Note - Service Type Service Type: [id number] Group Psychotherapy - Cognitive Behavioral Group Therapy ( CBT):Patient was attentive and participatory in CBT programming this morning, and remained in good behavioral control. Patient expressed positive insights regarding relevant treatment interventions and goals.
[2017-06-15] MEDS ORDERED: clonazePAM TAB(*) 0.5 MG PO SCH (14:32)
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
[2017-06-15] MEDS: clonazePAM TAB(*) 1 MG PO SCH (18:03)
[2017-06-15] MEDS: Nicotine Inhaler* 10 MG AMP INH PRN (18:04)
[2017-06-15] MEDS: QUEtiapine TAB* 25 MG PO SCH (21:12)
[2017-06-15] MEDS: CMCS: Vilazodone (NF) 40 MG TAB PO SCH (21:12)
[2017-06-15] MEDS: PINDOLOL 10 MG PO SCH (21:12)
[2017-06-15] MEDS: Zolpidem TAB* 10 MG PO SCH (21:13)
[2017-06-16] MEDS: Omeprazole CAP* 20 MG PO SCH (09:19)
[2017-06-16] MEDS: clonazePAM TAB(*) 1 MG PO SCH ×2 (09:19→16:59)
[2017-06-16] MEDS: Vitamin THERAPEUTIC TAB PO SCH (09:20)
--- NOTE | 2017-06-16 11:32 | PN ---
MHU: Group Therapy Note - Service Type Service Type: 31122 Group Psychotherapy - Cognitive Behavioral Group Therapy ( CBT):Patient was attentive and participatory in CBT programming this morning, and remained in good behavioral control. Patient expressed positive insights regarding relevant treatment interventions and goals.
[2017-06-16] MEDS: Nicotine Inhaler* 10 MG AMP INH PRN (15:36)
[2017-06-16] MEDS: QUEtiapine TAB* 25 MG PO SCH (21:19)
[2017-06-16] MEDS: Zolpidem TAB* 10 MG PO SCH (21:22)
[2017-06-16] MEDS: CMCS: Vilazodone (NF) 40 MG TAB PO SCH (21:23)
[2017-06-16] MEDS: PINDOLOL 10 MG PO SCH (21:23)
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
[2017-06-17] MEDS: Omeprazole CAP* 20 MG PO SCH (09:57)
[2017-06-17] MEDS: Vitamin THERAPEUTIC TAB PO SCH (09:57)
[2017-06-17] MEDS: clonazePAM TAB(*) 1 MG PO SCH ×2 (09:57→16:53)
[2017-06-17] MEDS: Nicotine Inhaler* 10 MG AMP INH PRN (20:12)
[2017-06-17] MEDS: CMCS: Vilazodone (NF) 40 MG TAB PO SCH (20:59)
[2017-06-17] MEDS: PINDOLOL 10 MG PO SCH (21:00)
[2017-06-17] MEDS: QUEtiapine TAB* 25 MG PO SCH (21:00)
[2017-06-17] MEDS: Zolpidem TAB* 10 MG PO SCH (21:00)
[2017-06-18] MEDS: Nicotine Inhaler* 10 MG AMP INH PRN (08:17)
[2017-06-18] MEDS: Omeprazole CAP* 20 MG PO SCH (10:06)
[2017-06-18] MEDS: clonazePAM TAB(*) 1 MG PO SCH ×2 (10:07→17:31)
[2017-06-18] MEDS: Vitamin THERAPEUTIC TAB PO SCH (10:07)
--- NOTE | 2017-06-18 13:09 | PN ---
Subjective - Subjective Service Type: 09156 Hosp care 15 min low complexity Subjective: Patient is bright in affect and engages the interview. She reports med compliance and denies med s/e. 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 Patient reports stabilizing anxiety. She reports getting into a shouting match with a peer, but reports she maintained her temper. Patient denies SI/HI and denies AH/VH. Objective - Appearance Appearance: Well Developed/Nourished, Thin Framed Dysmorphic Features: No Hygiene: Normal Grooming: Fairly Well Kept - Behavior Psychomotor Activities: Normal Exhibits Abnormal Movement: No - Attitude and Relatedness Attitude and Relatedness: Cooperative Eye Contact: Fair - Speech Quality: Unpressured Latencies: Normal Quantity: Appropriate - Mood Patient's Decription of Mood: "Okay" - Affect Observed Affect: Fair Affect Consistent with: Euthymia - Thought Process Patient's Thought Process: Coherent Thought Content: No Passive Wish, No Suicidal Planning, No Homicidal Ideation, No Paranoid Ideation - Sensorium Experiencing Hallucinations: No, Sensorium is Clear Type of Hallucinations: Visual: No, Auditory: No, Command: No - Level of Consciousness Level of Consciousness: Alert Orientation: Yes Intact, Yes Orientated to Time, Yes Orientated to Place, Yes Orientated to Person - Impulse Control Impulse Control: Intact - Insight and Judgement Insight and Judgement: Fair - Group Participation Particating in Group Activities: Yes - Medication Management Medication Management Adherence: Yes Assessment - Assessment Merits Inpatient Hospitalization: For Immediate Safety, For Stabilization Inpatient DSM-IV Dx: 1. PTSD. 2. Borderline PD. 3. Anorexia Nervosa Plan - Plan Treatment Plan: Name: RAMONITA CHOUDHURY Birthdate: 1990 [id number] PLAN: ------- 1. Continue admission to [facility] for safety and symptom mx. 2. Continue home psychotropic med regimen as currently Rx'd. 3. Continue compiling collateral information from Mom and outpt MH providers. 4. Patient gave this provider permission to speak with Roommate Kyleigh#[phone]. 5. Patient to participate in milieu activities and groups. Medications: Current Medications Acetaminophen (Tylenol Tab*) 650 mg PO Q4H PRN PRN Reason: for pain; or Temp >101 F Al Hydrox/Mg Hydrox/Simethicone (Maalox Plus*) 30 ml PO Q4H PRN PRN Reason: INDIGESTION Last Admin: 06/17/17 20:58 Dose: 30 ml Clonazepam (Klonopin Tab(*)) 2 mg PO 0800,1700 [facility] Last Admin: 06/18/17 10:07 Dose: 2 mg Multivitamins (Theragran Tab*) 1 tab PO DAILY [facility] Last Admin: 06/18/17 10:07 Dose: Not Given Nicotine (Nicotine Inhaler*) 10 mg INH Q2H PRN PRN Reason: CRAVING Last Admin: 06/18/17 08:17 Dose: 10 mg Omeprazole (Prilosec Cap*) 20 mg PO QAM [facility] Last Admin: 06/18/17 10:06 Dose: 20 mg Pindolol (Pindolol(Nf)) 10 mg PO BEDTIME [facility] Last Admin: 06/17/17 21:00 Dose: 10 mg Quetiapine Fumarate (Seroquel Tab*) 50 mg PO BEDTIME [facility] Last Admin: 06/17/17 21:00 Dose: 50 mg Vilazodone HCl (Viibryd (Nf)) 40 mg PO 1999 [facility] Last Admin: 06/17/17 20:59 Dose: 40 mg Zolpidem Tartrate (Ambien Tab*) 10 mg PO BEDTIME [facility] Last Admin: 06/17/17 21:00 Dose: 10 mg - Discharge Plan Discharge Plan: Outpatient Follow Up
[2017-06-18] MEDS: QUEtiapine TAB* 25 MG PO SCH (20:55)
[2017-06-18] MEDS: Zolpidem TAB* 10 MG PO SCH (20:55)
[2017-06-18] MEDS: CMCS: Vilazodone (NF) 40 MG TAB PO SCH (20:56)
[2017-06-18] MEDS: PINDOLOL 10 MG PO SCH (20:57)
[2017-06-19 08:01] VITALS: BP 95/53
[2017-06-19] MEDS: Vitamin THERAPEUTIC TAB PO SCH (09:22)
[2017-06-19] MEDS: Omeprazole CAP* 20 MG PO SCH (09:31)
[2017-06-19] MEDS: clonazePAM TAB(*) 1 MG PO SCH (09:31)
--- NOTE | 2017-06-19 11:51 | PN ---
MHU: Group Therapy Note - Service Type Service Type: 23521 Group Psychotherapy - Cognitive Behavioral Group Therapy ( CBT):Patient was attentive and participatory in CBT programming this morning, and remained in good behavioral control. Patient expressed positive insights regarding relevant treatment interventions and goals.
--- NOTE | 2017-06-19 12:23 | DS ---
Subjective - Subjective Service Types: 60677 Hosp DC Day Mgmt simple under 30 min Treatment Course & Assessment Inpatient DSM-IV Dx: 1. PTSD. 2. Borderline PD. 3. Anorexia Nervosa Discharge Planning - Discharge Planning Medications: Current Medications Acetaminophen (Tylenol Tab*) 650 mg PO Q4H PRN PRN Reason: for pain; or Temp >101 F Al Hydrox/Mg Hydrox/Simethicone (Maalox Plus*) 30 ml PO Q4H PRN PRN Reason: INDIGESTION Last Admin: 06/17/17 20:58 Dose: 30 ml Clonazepam (Klonopin Tab(*)) 2 mg PO 0800,1700 [facility] Last Admin: 06/19/17 09:31 Dose: 2 mg Multivitamins (Theragran Tab*) 1 tab PO DAILY [facility] Last Admin: 06/19/17 09:22 Dose: Not Given Nicotine (Nicotine Inhaler*) 10 mg INH Q2H PRN PRN Reason: CRAVING Last Admin: 06/18/17 08:17 Dose: 10 mg Omeprazole (Prilosec Cap*) 20 mg PO QAM [facility] Last Admin: 06/19/17 09:31 Dose: 20 mg Pindolol (Pindolol(Nf)) 10 mg PO BEDTIME [facility] Last Admin: 06/18/17 20:57 Dose: 10 mg Quetiapine Fumarate (Seroquel Tab*) 50 mg PO BEDTIME [facility] Last Admin: 06/18/17 20:55 Dose: 50 mg Vilazodone HCl (Viibryd (Nf)) 40 mg PO 1999 [facility] Last Admin: 06/18/17 20:56 Dose: 40 mg Zolpidem Tartrate (Ambien Tab*) 10 mg PO BEDTIME [facility] Last Admin: 06/18/17 20:55 Dose: 10 mg Discharge Planning: Prescriptions provided for discharge [] Yes [] No Follow up care details as per social work arrangements. Patient response to discharge plan: [] eager for discharge [] agreeable with discharge plan [] ambivalent about discharge [] disagrees with discharge today
[2017-06-19] MEDS: Nicotine Inhaler* 10 MG AMP INH PRN (13:19)
== END 2017-06-19 14:30 | disposition home or self-care (01) | DRG 755 ==
LOC: ED 00:21 → BSU 13:45 → ED 14:17
PROVIDERS: ADMIT Psychiatry & Neurology Psychiatry; ATTEND Psychiatry & Neurology Psychiatry
DX: F43.10 Post-traumatic stress disorder, unspecified (principal); F50.00 Anorexia nervosa, unspecified; F60.3 Borderline personality disorder; Z88.8 Allergy status to other drugs, medicaments and biological substances; Z81.8 Family history of other mental and behavioral disorders; Z81.3 Family history of other psychoactive substance abuse and dependence
CPT/HCPCS: 36415; 80053; 80307; 80320; 80329; 81003; 81015; 84443; 84702; 85025; 87086; 90853; 99222; 99231; 99232; 99238; A9270-GY; G0480

== ENCOUNTER 2017-07-22 15:41 | Inpatient (IN) | payer OTHER ==
[2017-07-22] MEDS ORDERED: NS 0.9% 1000 ML* 1,000 ML IV ONE ×3 (15:46→16:51)
[2017-07-22] MEDS ORDERED: Naloxone* 0.4 MG/ML 1 ML VIAL IV PUSH ONE (16:23)
[2017-07-22] MEDS ORDERED: Naloxone* 0.4 MG/ML 10 ML VIAL ONE (16:24)
[2017-07-22 16:40] LABS: Urine Bacteria Absent (Absent); Urine Bilirubin Negative (Negative); Urine Glucose Negative (Negative); Urine Nitrite Negative (Negative)
[2017-07-22 16:42] LABS: ALT 23 U/L (7-52); AST 60 U/L (13-39); Albumin 4.3 g/dL (3.2-5.2); Alkaline Phosphatase 67 U/L (34-104); Anion Gap 8 mmol/L (2-11); BUN/Creatinine Ratio 12.9 (8-20); Blood Urea Nitrogen 13 mg/dL (6-24); C Reactive Protein 9.68 mg/L (< 5.00); CO2 Carbon Dioxide 24 mmol/L (22-32); Calcium 9.8 mg/dL (8.6-10.3); Chloride 103 mmol/L (101-111); EGFR African American 84.6 (>60); EGFR Non-African American 65.7 (>60); Globulin 3.7 g/dL (2-4); Glucose 91 mg/dL (70-100); Lipase < 10 U/L (11.0-82.0); Magnesium 1.9 mg/dL (1.9-2.7); Potassium 4.5 mmol/L (3.5-5.0); Sodium 135 mmol/L (133-145)
[2017-07-22] MEDS ORDERED: Iohexol 300* (CONTRAST) 10 ML SDV IV ONE (16:56)
[2017-07-22 16:58] LABS: Benzodiazepine Urine Screen Presumptive Positive (None Detect)
[2017-07-22 17:00] LABS: Acetaminophen < 15 mcg/mL; Alcohol < 10 mg/dL (<10)
[2017-07-22 17:10] LABS: Venous Bicarbonate HCO3 21.1 mmol/L (24-28)
[2017-07-22 17:16] LABS: Salicylate < 2.50 mg/dL (<30)
--- NOTE | 2017-07-22 17:18 | RAD ---
Indication: Overdose, confusion. Single view of the chest demonstrates no mediastinal shift. Heart is of normal size and configuration. Lung meade demonstrate no pleural fluid, pneumonia or pneumothorax. No alveolar consolidation is noted. IMPRESSION: No active cardiopulmonary disease is noted.
[2017-07-22 17:22] LABS: Creatine Kinase 5515 U/L (10-223)
--- NOTE | 2017-07-22 17:37 | RAD ---
Indication: Confusion. CT of the brain was performed without IV contrast. Comparison is made with previous exam dated January 20, 2017. Ventricular structures are midline. No midline shift is noted. The extra-axial spaces are unremarkable. There is no evidence of intracranial mass or hemorrhage. No other high or low density lesions are identified. IMPRESSION: No intracranial mass or hemorrhage is noted.
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
--- NOTE | 2017-07-22 17:54 | RAD ---
Indication: Confusion, unresponsive. CT of the facial bones was obtained in the axial plane. Sagittal and coronal reconstructed images were obtained. This is limited study due to motion artifact. No obvious mandibular fracture is noted. The maxilla demonstrates no fracture. Pterygoid plates are intact. The nasal bones and maxillary sinuses demonstrates no fracture although minimal mucosal thickening of the left maxillary sinus is noted. The orbits are likely intact. Zygomatic arch demonstrates no discrete soft tissue swelling in the left zygomatic area. A minimally depressed fracture of the left zygomatic arch should BE considered. The orbits are otherwise unremarkable. IMPRESSION: There is suggestion of a minimally displaced fracture of the left zygomatic arch with adjacent soft tissue swelling. There is likely chronic sinusitis of the left maxillary sinus.
--- NOTE | 2017-07-22 18:09 | RAD ---
Indication: Unresponsive. Contrast: Administered 68.2 ml of OMNIPAQUE 300 mg/ml. CT of the chest, abdomen and pelvis was performed after IV contrast administration. Coronal and sagittal reconstructed images were obtained. Inferior thyroid lobes are unremarkable. The esophagus is distended. There is no mediastinal hilar adenopathy. The heart is of normal size without evidence of pericardial effusion. There is a filling defect in the right pulmonary artery consistent with pulmonary embolus. The heart demonstrates no pericardial effusion. The trachea and major bronchi appear patent. There is suggestion of some airspace disease in the left upper lobe, right lower lobe and left lower lobe. The possibility of aspiration pneumonia should BE considered. CT of the abdomen and pelvis demonstrates liver to be normal in size. No focal lesions or intrahepatic ductal dilatation is noted. The spleen is normal in size. No adrenal masses are noted. The kidneys demonstrate symmetric nephrograms. Calcified cyst is noted in the upper pole of the left kidney. No hydronephrosis or hydroureter is noted. No retroperitoneal lymphadenopathy is noted. CT of the pelvis demonstrates no retroperitoneal or pelvic lymphadenopathy. The urinary bladder is partially collapsed. Casanova catheter is in place. No adnexal masses are noted although probable left ovarian cyst noted. No free fluid is identified. The visualized bony structures are grossly unremarkable. IMPRESSION: There is a filling defect in the right pulmonary artery consistent with pulmonary embolus. Patchy areas of airspace disease in both lower lobes as well as in the left upper lobe. This likely represents pneumonia. I cannot totally exclude aspiration pneumonia. No definite solid organ injury is identified. Dr. Alfaor was notified of the results at 1804 hours.
[2017-07-22 18:44] LABS: Hematocrit 35 % (35-47); Hemoglobin 11.4 g/dl (12.0-16.0); Mean Corpuscular HGB Conc 32 g/dl (31-36); Mean Corpuscular Hemoglobin 29 pg (27-31); Mean Corpuscular Volume 88 fL (80-97); Mean Platelet Volume 8 um3 (7.4-10.4); Red Cell Distribution Width 16 % (10.5-15); White Blood Count 14.9 10^3/ul (3.5-10.8)
[2017-07-22 18:58] LABS: Ammonia 30 mol/L (16-53)
[2017-07-22 19:03] LABS: B Type Natriuretic Peptide 39 pg/mL
[2017-07-22] MEDS ORDERED: Ondansetron INJ* 2 MG/ML VIAL IV PRN (20:16)
[2017-07-22] MEDS ORDERED: Acetaminophen TAB* 325 MG PO PRN (20:16)
[2017-07-22] MEDS ORDERED: Al Hydrox/Mg Hydrox/Simet LIQ* 30 ML UDC PO PRN (20:16)
[2017-07-22] MEDS ORDERED: Senna TAB PO PRN (20:16)
[2017-07-22] MEDS ORDERED: Docusate CAP* 100 MG PO PRN (20:16)
[2017-07-22] MEDS ORDERED: Heparin DRIP 25,000 UNITS(*) 25,000 UNITS/500 ML BAG IV SCH (20:30)
[2017-07-22] MEDS ORDERED: Heparin VIAL(*) 5000 UNITS/ML VIAL (FIVE THOUSAND) IV SCH (21:00)
[2017-07-22] MEDS: NS 0.9% 1000 ML* 1,000 ML IV SCH (21:24)
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
[2017-07-23] MEDS: NS 0.9% 1000 ML* 1,000 ML IV SCH ×5 (03:12→19:59)
[2017-07-23 04:30] LABS: Hematocrit 36 % (35-47); Hemoglobin 12.1 g/dl (12.0-16.0); Mean Corpuscular HGB Conc 33 g/dl (31-36); Mean Corpuscular Hemoglobin 29 pg (27-31); Mean Corpuscular Volume 88 fL (80-97); Mean Platelet Volume 8 um3 (7.4-10.4); Red Blood Count 4.11 10^6/ul (4.0-5.4); Red Cell Distribution Width 16 % (10.5-15); White Blood Count 17.1 10^3/ul (3.5-10.8)
[2017-07-23 04:43] LABS: BUN/Creatinine Ratio 10.3 (8-20); Calcium 7.8 mg/dL (8.6-10.3); EGFR African American 79.1 (>60); EGFR Non-African American 61.5 (>60); Globulin 2.8 g/dL (2-4); Potassium 3.8 mmol/L (3.5-5.0); Total Bilirubin 0.7 mg/dL (0.2-1.0); Total Protein 5.8 g/dL (6.4-8.9)
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
--- NOTE | 2017-07-23 11:45 | ED ---
Cleo Paz Emily, scribed for Héctor Alfaro MD on 07/22/17 at 1559 . Substance Abuse/Use - HPI Summary HPI Summary: LEVEL 5 CAVEAT - OVERDOSE This patient is an 17 year old F BIBA to [facility] with a chief complaint of overdose since this morning. Roommates found her unresponsive. EMS reports pt being cold to the touch and having urinary incontinence. EMS reports pt had pin point pupils on arrival. Pt received Narcan BREAKER LAYER. - History Of Current Complaint Stated Complaint: OVERDOSE Time Seen by Provider: 07/22/17 15:42 Hx Obtained From: EMS Hx From Patient Unobtainable Due To: Other - Overdose Timing Of Abuse: Binge Use Severity Initially: Moderate Severity Currently: Moderate Related Hx: Prior Drug Abuse Counseling/Admission - Allergies/Home Medications Allergies/Adverse Reactions: Allergies Allergy/AdvReac Type Severity Reaction Status Date / Time Diphenhydramine Allergy Difficulty Verified 06/26/17 15:29 [From Benadryl] Breathing/Wheezing Trazodone Allergy Difficulty Verified 06/26/17 15:29 Swallowing Seasonal Allergy Congestion Uncoded 06/26/17 15:29 Home Medications: Home Medications Ferrous Sulfate TAB* 325 mg PO BID 07/22/17 [History Confirmed 07/22/17] Mirtazapine TAB* [Remeron TAB*] 7.5 mg PO BEDTIME 07/22/17 [History Confirmed ] Naltrexone (NF) 50 mg PO DAILY 07/22/17 [History Confirmed 07/22/17] Quetiapine Fumarate [Seroquel] 25 mg PO BEDTIME 07/22/17 [History Confirmed ] PMH/Surg Hx/FS Hx/Imm Hx Previously Healthy: No - LEVEL 5 CAVEAT - OVERDOSE Endocrine/Hematology History: Reports: Hx Anemia - using diet to improve anemia Denies: Hx Anticoagulant Therapy, Hx Blood Disorders, Hx Blood Transfusions, Hx Bone Marrow Disease, Hx Diabetes, Hx Systemic Lupus Erythematosus, Hx Sickle Cell Disease, Hx Thyroid Disease, Hx Unexplained Bleeding, Other Endocrine/ Hematological Disorders Cardiovascular History: Reports: Other Cardiovascular Problems/Disorders - hx syncope, pt states she takes Pindolol for nightmares Denies: Hx Congestive Heart Failure, Hx Hypertension, Hx Pacemaker/ICD Respiratory History: Denies: Hx Asthma GI History: Reports: Hx Gastroesophageal Reflux Disease - controlled with medication History: Reports: Other Problems/Disorders - kidney function is monitored per pt. Denies: Hx Dialysis, Hx Renal Disease Musculoskeletal History: Reports: Hx Arthritis - back, pt was a gymnast, Hx Back Problems - low back pain from gymnastics Denies: Hx Bursitis, Hx Congenital Bone Abnormalities, Hx Fibromyalgia, Hx Gout, Hx Orthopedic Injury, Hx Osteoporosis, Hx Scoliosis, Hx Tendonitis, Other Musculoskeletal History Sensory History: Reports: Hx Contacts or Glasses - occ. for distance Denies: Hx Hearing Aid Opthamlomology History: Reports: Hx Contacts or Glasses - occ. for distance Neurological History: Denies: Hx Dementia, Hx Developmental Delay, Hx Headaches, Hx Migraine, Hx Nerve Disease, Hx Seizures, Hx Spinal Cord Injury, Hx Transient Ischemic Attacks (TIA), Other Neuro Impairments/Disorders Psychiatric History: Reports: Hx Anxiety - controlled with medication and therapy, Hx Attention Deficit Hyperactivity Disorder, Hx Eating Disorder, Hx Depression - controlled with medication and therapy, Hx Panic Disorder, Hx Post Traumatic Stress Disorder, Hx Inpatient Treatment, Hx Community Mental Health Tx , Hx Suicide Attempt, Hx Substance Abuse Denies: Hx Schizophrenia, Hx Bipolar Disorder, Hx of Violent Episodes Against Others, Other Psychiatric Issues/Disorders - Surgical History Surgery Procedure, Year, and Place: wisdom teeth 2013? endoscopy 2014. TONSILS -[facility] 05/25/17 Hx Anesthesia Reactions: No - Immunization History Date of Tetanus Vaccine: Unknown Infectious Disease History: Denies: Hx Clostridium Difficile, Hx Hepatitis, Hx Human Immunodeficiency Virus (HIV), Hx of Known/Suspected MRSA, Hx Shingles, Hx Tuberculosis, History Other Infectious Disease - Family History Known Family History: Positive: Hypertension - Social History Alcohol Use: Occasionally Alcohol Amount: 3 x week, 3-4 drinks each time Hx Substance Use: Yes Substance Use Type: Reports: Prescribed Hx Tobacco Use: Yes Smoking Status (MU): Light Every Day Tobacco Smoker Type: Cigarettes Amount Used/How Often: 3 cigarettes or less daily, pt has smoked for approx 1 yr. Have You Smoked in the Last Year: Yes - states she smokes about three cigarettes per day Review of Systems - ROS Summary Review of Systems Summary: LEVEL 5 CAVEAT - OVERDOSE Positive: Other - Pin point pupils Positive: incontinence - Urinary Positive: Other - Cold to the touch Neurological: Other - Overdose All Other Systems Reviewed And Are Negative: No Physical Exam Triage Information Reviewed: Yes Vital Signs On Initial Exam: Initial Vitals Pulse Pulse Ox 110 97 07/22/17 15:49 07/22/17 15:49 Vital Signs Reviewed: Yes Completion Of Physical Exam Limited Due To: Level 5 - Overdose Appearance: Positive: Well-Appearing Skin: Positive: Warm, Skin Color Reflects Adequate Perfusion, Dry, Other - Abrasions on left cheek and left shoulder. Pressure sores left shoulder, elbow, hip, and knee. Eyes: Positive: Other: - Pupils about 4 mm and minimally reactive ENT: Positive: Other - Dry oral mucosa Neck: Positive: Supple, Nontender Cardiovascular: Positive: RRR Abdomen Description: Positive: Nontender, Soft Bowel Sounds: Positive: Present Musculoskeletal: Positive: Normal - Froylan Coma Scale Best Eye Response: 2 - To Pain Best Motor Response: 4 - Withdraws Best Verbal Response: 2 - Incomprehensible Words Diagnostics - Vital Signs Vital Signs Temp Pulse Resp BP Pulse Ox 07/22/17 20:15 124 15 118/84 100 07/22/17 20:05 124 16 124/70 100 07/22/17 20:01 125 17 125/88 100 07/22/17 20:00 98.3 F 124 16 100 07/22/17 19:55 126 21 126/92 100 07/22/17 19:45 125 21 121/83 100 07/22/17 19:40 123 21 127/74 100 07/22/17 19:35 19 123/84 07/22/17 19:30 124 21 130/88 99 07/22/17 19:25 124 23 133/76 99 07/22/17 19:20 124 21 130/86 100 07/22/17 19:15 123 19 134/91 100 07/22/17 19:10 124 20 126/80 98 07/22/17 19:05 123 19 130/82 99 07/22/17 19:00 121 21 134/91 99 07/22/17 18:55 121 20 122/89 99 07/22/17 18:50 122 19 130/80 98 07/22/17 18:45 119 18 138/85 99 07/22/17 18:40 117 17 129/86 99 07/22/17 18:35 120 16 138/90 98 07/22/17 18:30 130/88 07/22/17 18:25 117 17 125/80 98 07/22/17 18:22 118 15 139/81 98 07/22/17 18:17 120 17 144/91 98 07/22/17 18:15 116 17 132/119 97 07/22/17 18:00 115 16 130/85 96 07/22/17 17:45 116 19 130/73 97 07/22/17 17:30 115 18 116/73 99 07/22/17 17:28 116 21 125/79 99 07/22/17 17:15 115 24 122/89 96 07/22/17 17:02 109 18 97 07/22/17 17:00 115/75 07/22/17 16:46 108 21 124/78 96 07/22/17 16:34 95 07/22/17 16:30 109 22 116/82 94 07/22/17 16:15 110 21 101/90 94 07/22/17 16:12 108 18 106/78 94 07/22/17 16:00 95.6 F 108 19 96/81 96 07/22/17 15:52 116 87/57 96 07/22/17 15:49 110 97 - Laboratory Lab Results: Lab Results 07/22/17 07/22/17 07/22/17 Range/Units 16:16 16:16 16:16 WBC (3.5-10.8) 10^3/ul RBC (4.0-5.4) 10^6/ul Hgb (12.0-16.0) g/dl Hct (35-47) % MCV (80-97) fL MCH (27-31) pg MCHC (31-36) g/dl RDW (10.5-15) % Plt Count (150-450) 10^3/ul MPV (7.4-10.4) um3 Neut % (Auto) (38-83) % Lymph % (Auto) (25-47) % [place] % (Auto) (1-9) % Eos % (Auto) (0-6) % Baso % (Auto) (0-2) % Absolute Neuts (auto) (1.5-7.7) 10^3/ul Absolute Lymphs (auto) (1.0-4.8) 10^3/ul Absolute Monos (auto) (0-0.8) 10^3/ul Absolute Eos (auto) (0-0.6) 10^3/ul Absolute Basos (auto) (0-0.2) 10^3/ul Absolute Nucleated RBC 10^3/ul Nucleated RBC % INR (Anticoag Therapy) 0.88 L (0.89-1.11) APTT 16.6 L (26.0-36.3) seconds VBG pH (7.33-7.43) VBG pCO2 (41-51) mmHg VBG pO2 (35-45) mmHg VBG HCO3 (24-28) mmol/L VBG O2 Saturation (70-80) % VBG Base Excess (0-4) Carbon Monoxide Screen < 4 (<4.0) % Sodium 135 (133-145) mmol/L Potassium 4.5 (3.5-5.0) mmol/L Chloride 103 (101-111) mmol/L Carbon Dioxide 24 (22-32) mmol/L Anion Gap 8 (2-11) mmol/L BUN 13 (6-24) mg/dL Creatinine 1.01 H (0.51-0.95) mg/dL Est GFR ( Amer) 84.6 (>60) Est GFR (Non-Af Amer) 65.7 (>60) BUN/Creatinine Ratio 12.9 (8-20) Glucose 91 (70-100) mg/dL Lactic Acid (0.5-2.0) mmol/L Calcium 9.8 (8.6-10.3) mg/dL Magnesium 1.9 (1.9-2.7) mg/dL Iron (50-212) ug/dL Total Bilirubin 0.80 (0.2-1.0) mg/dL AST 60 H (13-39) U/L ALT 23 (7-52) U/L Alkaline Phosphatase 67 (34-104) U/L Ammonia (16-53) mol/L Total Creatine Kinase 5515 H (10-223) U/L CK-MB (CK-2) 55.3 H (0.6-6.3) ng/mL Troponin I 0.00 (<0.04) ng/mL C-Reactive Protein 9.68 H (< 5.00) mg/L B-Natriuretic Peptide ( - 100) pg/mL Total Protein 8.0 (6.4-8.9) g/dL Albumin 4.3 (3.2-5.2) g/dL Globulin 3.7 (2-4) g/dL Albumin/Globulin Ratio 1.2 (1-3) Lipase < 10 L (11.0-82.0) U/L TSH 1.10 (0.34-5.60) mcIU/mL Beta HCG, Quant < 0.60 mIU/mL Urine Color Urine Appearance Urine pH (5-9) Ur Specific [place] (1.010-1.030) Urine Protein (Negative) Urine Ketones (Negative) Urine Blood (Negative) Urine Nitrate (Negative) Urine Bilirubin (Negative) Urine Urobilinogen (Negative) Ur Leukocyte Esterase (Negative) Urine WBC (Auto) (Absent) Urine RBC (Auto) (Absent) Urine Bacteria (Absent) Urine Glucose (Negative) Salicylates < 2.50 (<30) mg/dL Urine Opiates Screen (None Detect) Acetaminophen < 15 mcg/mL Ur Barbiturates Screen (None Detect) Ur Phencyclidine Scrn (None Detect) Ur Amphetamines Screen (None Detect) U Benzodiazepines Scrn (None Detect) Urine Cocaine Screen (None Detect) U Cannabinoids Screen (None Detect) Serum Alcohol < 10 (<10) mg/dL 07/22/17 07/22/17 07/22/17 Range/Units 16:16 16:22 16:22 WBC (3.5-10.8) 10^3/ul RBC (4.0-5.4) 10^6/ul Hgb (12.0-16.0) g/dl Hct (35-47) % MCV (80-97) fL MCH (27-31) pg MCHC (31-36) g/dl RDW (10.5-15) % Plt Count (150-450) 10^3/ul MPV (7.4-10.4) um3 Neut % (Auto) (38-83) % Lymph % (Auto) (25-47) % [place] % (Auto) (1-9) % Eos % (Auto) (0-6) % Baso % (Auto) (0-2) % Absolute Neuts (auto) (1.5-7.7) 10^3/ul Absolute Lymphs (auto) (1.0-4.8) 10^3/ul Absolute Monos (auto) (0-0.8) 10^3/ul Absolute Eos (auto) (0-0.6) 10^3/ul Absolute Basos (auto) (0-0.2) 10^3/ul Absolute Nucleated RBC 10^3/ul Nucleated RBC % INR (Anticoag Therapy) (0.89-1.11) APTT (26.0-36.3) seconds VBG pH (7.33-7.43) VBG pCO2 (41-51) mmHg VBG pO2 (35-45) mmHg VBG HCO3 (24-28) mmol/L VBG O2 Saturation (70-80) % VBG Base Excess (0-4) Carbon Monoxide Screen (<4.0) % Sodium (133-145) mmol/L Potassium (3.5-5.0) mmol/L Chloride (101-111) mmol/L Carbon Dioxide (22-32) mmol/L Anion Gap (2-11) mmol/L BUN (6-24) mg/dL Creatinine (0.51-0.95) mg/dL Est GFR ( Amer) (>60) Est GFR (Non-Af Amer) (>60) BUN/Creatinine Ratio (8-20) Glucose (70-100) mg/dL Lactic Acid 1.5 (0.5-2.0) mmol/L Calcium (8.6-10.3) mg/dL Magnesium (1.9-2.7) mg/dL Iron (50-212) ug/dL Total Bilirubin (0.2-1.0) mg/dL AST (13-39) U/L ALT (7-52) U/L Alkaline Phosphatase (34-104) U/L Ammonia (16-53) mol/L Total Creatine Kinase (10-223) U/L CK-MB (CK-2) (0.6-6.3) ng/mL Troponin I (<0.04) ng/mL C-Reactive Protein (< 5.00) mg/L B-Natriuretic Peptide ( - 100) pg/mL Total Protein (6.4-8.9) g/dL Albumin (3.2-5.2) g/dL Globulin (2-4) g/dL Albumin/Globulin Ratio (1-3) Lipase (11.0-82.0) U/L TSH (0.34-5.60) mcIU/mL Beta HCG, Quant mIU/mL Urine Color Yellow Urine Appearance Clear Urine pH 5.0 (5-9) Ur Specific [place] 1.017 (1.010-1.030) Urine Protein Negative (Negative) Urine Ketones Negative (Negative) Urine Blood 2+ H (Negative) Urine Nitrate Negative (Negative) Urine Bilirubin Negative (Negative) Urine Urobilinogen Negative (Negative) Ur Leukocyte Esterase Negative (Negative) Urine WBC (Auto) Trace(0-5/hpf) (Absent) Urine RBC (Auto) Absent (Absent) Urine Bacteria Absent (Absent) Urine Glucose Negative (Negative) Salicylates (<30) mg/dL Urine Opiates Screen None detected (None Detect) Acetaminophen mcg/mL Ur Barbiturates Screen None detected (None Detect) Ur Phencyclidine Scrn None detected (None Detect) Ur Amphetamines Screen None detected (None Detect) U Benzodiazepines Scrn Presumptive positive H (None Detect) Urine Cocaine Screen None detected (None Detect) U Cannabinoids Screen None detected (None Detect) Serum Alcohol (<10) mg/dL 07/22/17 07/22/17 07/22/17 Range/Units 16:50 18:14 18:33 WBC 14.9 H (3.5-10.8) 10^3/ul RBC 4.00 (4.0-5.4) 10^6/ul Hgb 11.4 L (12.0-16.0) g/dl Hct 35 (35-47) % MCV 88 (80-97) fL MCH 29 (27-31) pg MCHC 32 (31-36) g/dl RDW 16 H (10.5-15) % Plt Count 197 (150-450) 10^3/ul MPV 8 (7.4-10.4) um3 Neut % (Auto) 91.5 H (38-83) % Lymph % (Auto) 3.0 L (25-47) % [place] % (Auto) 5.3 (1-9) % Eos % (Auto) 0.1 (0-6) % Baso % (Auto) 0.1 (0-2) % Absolute Neuts (auto) 13.6 H (1.5-7.7) 10^3/ul Absolute Lymphs (auto) 0.4 L (1.0-4.8) 10^3/ul Absolute Monos (auto) 0.8 (0-0.8) 10^3/ul Absolute Eos (auto) 0 (0-0.6) 10^3/ul Absolute Basos (auto) 0 (0-0.2) 10^3/ul Absolute Nucleated RBC 0 10^3/ul Nucleated RBC % 0 INR (Anticoag Therapy) (0.89-1.11) APTT (26.0-36.3) seconds VBG pH 7.27 L (7.33-7.43) VBG pCO2 51 (41-51) mmHg VBG pO2 31 L (35-45) mmHg VBG HCO3 21.1 L (24-28) mmol/L VBG O2 Saturation 61.5 L (70-80) % VBG Base Excess -3.8 L (0-4) Carbon Monoxide Screen (<4.0) % Sodium (133-145) mmol/L Potassium (3.5-5.0) mmol/L Chloride (101-111) mmol/L Carbon Dioxide (22-32) mmol/L Anion Gap (2-11) mmol/L BUN (6-24) mg/dL Creatinine (0.51-0.95) mg/dL Est GFR ( Amer) (>60) Est GFR (Non-Af Amer) (>60) BUN/Creatinine Ratio (8-20) Glucose (70-100) mg/dL Lactic Acid (0.5-2.0) mmol/L Calcium (8.6-10.3) mg/dL Magnesium (1.9-2.7) mg/dL Iron (50-212) ug/dL Total Bilirubin (0.2-1.0) mg/dL AST (13-39) U/L ALT (7-52) U/L Alkaline Phosphatase (34-104) U/L Ammonia 30 (16-53) mol/L Total Creatine Kinase (10-223) U/L CK-MB (CK-2) (0.6-6.3) ng/mL Troponin I (<0.04) ng/mL C-Reactive Protein (< 5.00) mg/L B-Natriuretic Peptide 39 ( - 100) pg/mL Total Protein (6.4-8.9) g/dL Albumin (3.2-5.2) g/dL Globulin (2-4) g/dL Albumin/Globulin Ratio (1-3) Lipase (11.0-82.0) U/L TSH (0.34-5.60) mcIU/mL Beta HCG, Quant mIU/mL Urine Color Urine Appearance Urine pH (5-9) Ur Specific [place] (1.010-1.030) Urine Protein (Negative) Urine Ketones (Negative) Urine Blood (Negative) Urine Nitrate (Negative) Urine Bilirubin (Negative) Urine Urobilinogen (Negative) Ur Leukocyte Esterase (Negative) Urine WBC (Auto) (Absent) Urine RBC (Auto) (Absent) Urine Bacteria (Absent) Urine Glucose (Negative) Salicylates (<30) mg/dL Urine Opiates Screen (None Detect) Acetaminophen mcg/mL Ur Barbiturates Screen (None Detect) Ur Phencyclidine Scrn (None Detect) Ur Amphetamines Screen (None Detect) U Benzodiazepines Scrn (None Detect) Urine Cocaine Screen (None Detect) U Cannabinoids Screen (None Detect) Serum Alcohol (<10) mg/dL 07/22/17 Range/Units 18:33 WBC (3.5-10.8) 10^3/ul RBC (4.0-5.4) 10^6/ul Hgb (12.0-16.0) g/dl Hct (35-47) % MCV (80-97) fL MCH (27-31) pg MCHC (31-36) g/dl RDW (10.5-15) % Plt Count (150-450) 10^3/ul MPV (7.4-10.4) um3 Neut % (Auto) (38-83) % Lymph % (Auto) (25-47) % [place] % (Auto) (1-9) % Eos % (Auto) (0-6) % Baso % (Auto) (0-2) % Absolute Neuts (auto) (1.5-7.7) 10^3/ul Absolute Lymphs (auto) (1.0-4.8) 10^3/ul Absolute Monos (auto) (0-0.8) 10^3/ul Absolute Eos (auto) (0-0.6) 10^3/ul Absolute Basos (auto) (0-0.2) 10^3/ul Absolute Nucleated RBC 10^3/ul Nucleated RBC % INR (Anticoag Therapy) (0.89-1.11) APTT (26.0-36.3) seconds VBG pH (7.33-7.43) VBG pCO2 (41-51) mmHg VBG pO2 (35-45) mmHg VBG HCO3 (24-28) mmol/L VBG O2 Saturation (70-80) % VBG Base Excess (0-4) Carbon Monoxide Screen (<4.0) % Sodium (133-145) mmol/L Potassium (3.5-5.0) mmol/L Chloride (101-111) mmol/L Carbon Dioxide (22-32) mmol/L Anion Gap (2-11) mmol/L BUN (6-24) mg/dL Creatinine (0.51-0.95) mg/dL Est GFR ( Amer) (>60) Est GFR (Non-Af Amer) (>60) BUN/Creatinine Ratio (8-20) Glucose (70-100) mg/dL Lactic Acid (0.5-2.0) mmol/L Calcium (8.6-10.3) mg/dL Magnesium (1.9-2.7) mg/dL Iron 83 (50-212) ug/dL Total Bilirubin (0.2-1.0) mg/dL AST (13-39) U/L ALT (7-52) U/L Alkaline Phosphatase (34-104) U/L Ammonia (16-53) mol/L Total Creatine Kinase (10-223) U/L CK-MB (CK-2) (0.6-6.3) ng/mL Troponin I (<0.04) ng/mL C-Reactive Protein (< 5.00) mg/L B-Natriuretic Peptide ( - 100) pg/mL Total Protein (6.4-8.9) g/dL Albumin (3.2-5.2) g/dL Globulin (2-4) g/dL Albumin/Globulin Ratio (1-3) Lipase (11.0-82.0) U/L TSH (0.34-5.60) mcIU/mL Beta HCG, Quant mIU/mL Urine Color Urine Appearance Urine pH (5-9) Ur Specific [place] (1.010-1.030) Urine Protein (Negative) Urine Ketones (Negative) Urine Blood (Negative) Urine Nitrate (Negative) Urine Bilirubin (Negative) Urine Urobilinogen (Negative) Ur Leukocyte Esterase (Negative) Urine WBC (Auto) (Absent) Urine RBC (Auto) (Absent) Urine Bacteria (Absent) Urine Glucose (Negative) Salicylates (<30) mg/dL Urine Opiates Screen (None Detect) Acetaminophen mcg/mL Ur Barbiturates Screen (None Detect) Ur Phencyclidine Scrn (None Detect) Ur Amphetamines Screen (None Detect) U Benzodiazepines Scrn (None Detect) Urine Cocaine Screen (None Detect) U Cannabinoids Screen (None Detect) Serum Alcohol (<10) mg/dL Result Diagrams: 07/23/17 04:15 07/23/17 04:15 Lab Statement: Any lab studies that have been ordered have been reviewed, and results considered in the medical decision making process. - Radiology CXR Radiology Interpretation Completed By: Radiologist - No active cardiopulmonary disease is noted. ED physician has reviewed this radiology report and agrees. - CT Brain CT Interpretation Completed By: Radiologist - Reveals no intracranial mass or hemorrhage is noted. ED physician has reviewed this radiology report and agrees. Chest/Abdomen/Pelvis CT Interpretation Completed By: Radiologist - Reveals there is a filling defect in the right pulmonary artery consistent with pulmonary embolus. Patchy areas of airspace disease in both lower lobes as well as in the left upper lobe. This likely represents pneumonia. I cannot totally exclude aspiration pneumonia. No definite solid organ injury is identified.Dr. Alfaro was notified of the results at 1804 hours. ED physician has reviewed this radiology report and agrees. Maxillofacial CT Interpretation Completed By: Radiologist - Reveals there is suggestion of a minimally displaced fracture of the left zygomatic arch with adjacent soft tissue swelling. There is likely chronic sinusitis of the left maxillary sinus. ED physician has reviewed this radiology report and agrees. Cervical Spine CT Interpretation Completed By: Radiologist - REVEALS MOTION ARTIFACT DEGRADES THE IMAGES AND LIMITS EVALUATION. THE SKULL BASE, C1, C2 AND C3 SHOWS NO FRACTURE. THE REMAINDER OF THE VERTEBRA DEMONSTRATES NO COMPRESSION AND NO FACET MALALIGNMENT ALTHOUGH MOTION ARTIFACT DEGRADES THE IMAGES AND SUBTLE FRACTURES CANNOT BE EXCLUDED. CLINICAL CORRELATION IS SUGGESTED. ED PHYSICIAN HAS REVIEWED THIS RADIOLOGY REPORT AND AGREES. - EKG 1628 Cardiac Rate: Tachycardia - 127 BPM EKG Rhythm: Sinus Rhythm Ectopy: None EKG Interpretation: Borderline T wave abnormalities. Course/Dx - Course Course Of Treatment: DISCUSSED WITH DR MILIAN AND HOSPITALIST. ADMIT HOSPITALIST CRITICAL. - Diagnoses Provider Diagnoses: Pulmonary embolism, Altered mental state, Zygomatic fracture, left side, initial encounter for closed fracture, Pneumonia, Contusion, Rhabdomyolysis - Physician Notifications Discussed Care Of Patient With: Lauren Liu Time Discussed With Above Provider: 16:37 Instructed by Provider To: Other - Consult with Dr. Liu (hospitalist) discussed patient's case. Consult with Dr. Galvin (hospitalist) at 1828 discussed patient's care. Consult with Dr. Milian (specialty finishing utility person) at 191 discussed plan for patient. - Critical Care Time Critical Care Time: 75-104 min Discharge - Discharge Plan Condition: Critical Disposition: ADMITTED TO [facility] documentation as recorded by the Cleo phipps Emily accurately reflects the service I personally performed and the decisions made by me, Héctor Alfaro MD.
--- NOTE | 2017-07-23 13:45 | CONSULT ---
Consult Consult: S: 26 y.o. mixed-race single female with a history of affective dysregulation known to psychiatry from recent admission to [facility] in June of this year is currently hospitalized in the ICU following a presumed intentional overdose on multiple medications in her apartment here in [place]. Documentation indicates that her live-in boyfriend reported that she made suicidal statements leading up the day of ingestion. The patient is difficult to properly evaluate at this time as she is slurring her words and does not seem to remember the events leading to the index ingestion. She appears to be minimizing the severity of the situation, stating that she does not require psychiatric hospitalization and needs to get home to feed her cat. O: young light skinned AA female with long braided hair; wearing hospital gown, laying supine in medical bed; limited eye contact; large abrasion noted to her left mandibular area; slurred, disarticulate speech; euthymic with full affect; confused thought process; wishes to go home; denies SI or HI; denies AH or VH; insight and judgment limited related to denial of further inpatient care. A/P: Polysubstance Ingestion: appears intentional with suicidal intent. She needs to be transferred to the [facility] but it doesn't appear that she's medically clear at this time. Psychiatry will re-evaluate tomorrow (07/24).
[2017-07-23] MEDS ORDERED: NS 0.9% 1000 ML* 1,000 ML IV ONE (14:15)
--- NOTE | 2017-07-23 14:47 | RAD ---
Indication: LEFT knee pain and edema following injury. Assess for fracture. Comparison: June 12, 2008 Technique: AP and crosstable lateral views LEFT knee. REPORT AND IMPRESSION: Severe subcutaneous edema most marked medially and laterally. No conspicuous foreign body or subcutaneous emphysema evident. Only trace fluid in the suprapatellar joint recess. Negative for fracture or malalignment.
--- NOTE | 2017-07-23 16:09 | RAD ---
INDICATION: Pulmonary embolism. COMPARISON: No relevant prior exams available on the [facility] for comparison. TECHNIQUE: [place] scale, color Doppler, and spectral analysis of the deep veins of the BILATERAL lower extremities. Vessel compression, phasicity, and augmentation assessed. REPORT: The RIGHT common femoral, great saphenous, profunda femoral, femoral, popliteal, peroneal, and posterior tibial veins are patent. Free floating thrombus visualized at the common femoral vein extending as far cephalad as the saphenous femoral junction and likely arising from the profunda femoral vein. Due to free floating thrombus graded compression of the LEFT lower extremity was not performed. Patent LEFT great saphenous vein at the saphenous femoral junction. Patent superficial femoral, popliteal, and paired posterior tibial veins. One of the paired peroneal veins is remarkable for occlusive thrombosis. IMPRESSION: 1. No evidence for RIGHT lower extremity DVT. 2. Acute LEFT lower extremity DVT seen as far proximal as the common femoral vein great saphenous vein confluence.
[2017-07-23] MEDS ORDERED: LORazepam TAB(*) 1 MG PO PRN (17:56)
[2017-07-23] MEDS ORDERED: traMADol TAB* 50 MG PO PRN (22:42)
[2017-07-24 07:00] LABS: Hematocrit 28 % (35-47); Hemoglobin 9.4 g/dl (12.0-16.0); Mean Corpuscular HGB Conc 34 g/dl (31-36); Mean Corpuscular Hemoglobin 29 pg (27-31); Mean Corpuscular Volume 87 fL (80-97); Mean Platelet Volume 8 um3 (7.4-10.4); Red Blood Count 3.23 10^6/ul (4.0-5.4); Red Cell Distribution Width 16 % (10.5-15); White Blood Count 11.2 10^3/ul (3.5-10.8)
[2017-07-24 07:33] LABS: Albumin 2.2 g/dL (3.2-5.2); BUN/Creatinine Ratio 8.4 (8-20); Calcium 7.1 mg/dL (8.6-10.3); EGFR African American 90.7 (>60); EGFR Non-African American 70.6 (>60); Globulin 2.4 g/dL (2-4); Magnesium 1.5 mg/dL (1.9-2.7); Phosphorus 2.1 mg/dL (2.5-5.0); Potassium 3.5 mmol/L (3.5-5.0); Total Bilirubin 0.6 mg/dL (0.2-1.0); Total Protein 4.6 g/dL (6.4-8.9)
[2017-07-24] MEDS: NS 0.9% 1000 ML* 1,000 ML IV SCH (07:39)
[2017-07-24] MEDS ORDERED: Magnesium Oxide TAB* 400 MG PO ONE (09:25)
[2017-07-24] MEDS: LORazepam TAB(*) 1 MG PO SCH ×2 (09:27→21:44)
--- NOTE | 2017-07-24 11:11 | ECHO ---
Patient: RAMONITA CHOUDHURY [facility] Rec#: [id number] : 1990 Date: 07/24/2017 Age: 26y Height: 165.1 cm / 65.0 in Weight: 58.06 kg / 128.0 lbs Sex: F BSA: 1.64 Room#: ICU-1 Admit Date#: 07/22/2017 Type: Inpatient Referring: Alicia Allan MD Reading: Chin Franks MD Satin Finisher: Zarina Ford RDCS CC: Derek Torres MD Transthoracic Echocardiogram Indication: Pulmonary Emoboli BP: 109/77 HR: 114 Rhythm: Tachycardia Findings History: Mental Health history, PTSD. Technical Comments: The study quality is good. Completed at 1100. Left Ventricle: The left ventricular chamber size is normal. There is no left ventricular hypertrophy. Global left ventricular wall motion and contractility are within normal limits. There is normal left ventricular systolic function. The estimated ejection fraction is 60-65%. Normal left ventricular diastolic filling is observed. Left Atrium: The left atrial chamber size is normal. Right Ventricle: The right ventricle is mildly dilated. The right ventricular global systolic function is normal. Right Atrium: The right atrial cavity size is normal. Aortic Valve: The aortic valve is trileaflet. There is no evidence of aortic regurgitation. There is no evidence of aortic stenosis. Mitral Valve: The mitral valve leaflets are mildly thickened. There is a trace of mitral regurgitation. There is no evidence of mitral stenosis. Tricuspid Valve: The tricuspid valve leaflets are normal. There is mild tricuspid regurgitation. The right ventricular systolic pressure is estimated at 28 mmHg. No pulmonary hypertension is noted. There is no tricuspid stenosis. Pulmonic Valve: The pulmonic valve appears normal. There is a trace pulmonic regurgitation. There is no pulmonic stenosis. Pericardium: There is no significant pericardial effusion. Aorta: There is no dilatation of the ascending aorta. There is no dilatation of the aortic arch. The aortic root is normal in size. Pulmonary Artery: The main pulmonary artery appears normal. Venous: The inferior vena cava appears normal in size. There is a greater than 50% respiratory change in the inferior vena cava dimension. Summary: There was not any prior study for comparison. Conclusions Global left ventricular wall motion and contractility are within normal limits. There is normal left ventricular systolic function. The estimated ejection fraction is 60-65%. There is no evidence of aortic stenosis. There is a trace of mitral regurgitation. There is mild tricuspid regurgitation. No pulmonary hypertension is noted. There is no significant pericardial effusion. Measurements Name Value Normal Range RVIDd (AP) 2D 2.2 cm (0.9 - 2.6) RVDdMajor (2D) 4.4 cm (2.2 - 4.4) RAd ISD 4CH 3.3 cm (3.4 - 4.9) RA (A4C)W 3.3 cm (2.9 - 4.6) IVSd (2D) 0.9 cm (0.6 - 1) LVPWd (2D) 0.8 cm (0.6 - 1) LVIDd (2D) 4.2 cm (3.6 - 5.4) LVIDs (2D) 3 cm - LV FS (2D) 28 % (25 - 45) Aortic Annulus 1.8 cm (1.4 - 2.6) Ao root diameter (2D) 2.5 cm (2.1 - 3.5) Ascending Ao 2.7 cm (2.1 - 3.4) Aortic arch 3 cm (1.8 - 3.4) LA dimension (AP) 2D 2.7 cm (2.3 - 3.8) LAd ISD 4CH 3.8 cm (2.9 - 5.3) LA ISD 4CH W 3.9 cm (2.5 - 4.5) Name Value Normal Range LA ESV SP 4CH (A/L) 29 ml - LA ESV SP 2CH (A/L) 36 ml - LA ESV BP (A/L) 38 ml - LA ESV BP (A/L) index 23 ml/m2 - LA ESV SP 4CH (MOD) 26 ml - LA ESV SP 2CH (MOD) 33 ml - Name Value Normal Range MV E-wave Vmax 0.82 m/sec - MV deceleration time 175.9 msec - MV A-wave Vmax 1.01 m/sec - MV E:A ratio 0.8 ratio - LV septal e' Vmax 0.19 m/sec - LV lateral e' Vmax 0.2 m/sec - LV E:e' septal ratio 4.32 ratio - LV E:e' lateral ratio 4.1 ratio - Name Value Normal Range AV Vmax 1.5 m/sec - AV VTI 20.9 cm - AV peak gradient 9.23 mmHg - AV mean gradient 3.91 mmHg - LVOT Vmax 1 m/sec - LVOT VTI 15.8 cm - LVOT peak gradient 4.46 mmHg - LVOT mean gradient 2.1 mmHg - JONI Vmax 1.17 m/sec - Name Value Normal Range TR Vmax 2.5 m/sec - TR peak gradient 25 mmHg - RAP 3 mmHg - RVSP 28 mmHg - IVC diameter 1.1 cm - Name Value Normal Range PV Vmax 0.9 m/sec - PV peak gradient 3.24 mmHg -
--- NOTE | 2017-07-24 11:16 | PN ---
Subjective Date of Service: 07/24/17 Interval History: Feels better this morning. Complains of some pain in her left leg that was relieved by tramadol overnight. She does complain of some nausea, no diarrhea or constipation. SHe has been afebrile overnight. She expresses anxiety about getting to the psych unit as soon as possible. She also expresses remorse for taking too many pills and says she is angry at herself for doing that. Family History: Unchanged from Admission Social History: Unchanged from Admission Past Medical History: Unchanged from Admission Objective Active Medications: Al Hydrox/Mg Hydrox/Simethicone (Maalox Plus*) 30 ml PO Q6H PRN PRN Reason: INDIGESTION Docusate Sodium (Colace Cap*) 100 mg PO BID PRN PRN Reason: CONSTIPATION Lorazepam (Ativan Tab(*)) 2 mg PO BID [facility] Last Admin: 07/24/17 09:27 Dose: 2 mg Ondansetron HCl (Zofran Inj*) 4 mg IV Q4H PRN PRN Reason: NAUSEA/VOMITING Rivaroxaban (Xarelto(*)) 15 mg PO BID [facility] Senna (Senokot Tab*) 1 tab PO BID PRN PRN Reason: CONSTIPATION Tramadol HCl (Ultram*) 50 mg PO Q6H PRN PRN Reason: PAIN Last Admin: 07/24/17 08:17 Dose: 50 mg Vital Signs 07/23/17 07/23/17 07/23/17 11:30 11:34 11:40 Temperature 98.9 F Pulse Rate 134 129 Respiratory 21 19 Rate Blood Pressure (mmHg) O2 Sat by Pulse 99 100 Oximetry 07/23/17 07/23/17 07/23/17 12:00 12:01 12:28 Temperature Pulse Rate 124 127 121 Respiratory 29 Rate Blood Pressure 117/78 (mmHg) O2 Sat by Pulse 98 100 100 Oximetry 07/23/17 07/23/17 07/23/17 12:30 13:00 13:01 Temperature Pulse Rate 123 119 118 Respiratory 16 Rate Blood Pressure 126/76 (mmHg) O2 Sat by Pulse 98 100 100 Oximetry 07/23/17 07/23/17 07/23/17 13:30 14:00 14:30 Temperature Pulse Rate 119 117 112 Respiratory 16 Rate Blood Pressure 113/71 (mmHg) O2 Sat by Pulse 100 100 100 Oximetry 07/23/17 07/23/17 07/23/17 14:32 14:59 15:00 Temperature Pulse Rate 115 114 117 Respiratory 18 Rate Blood Pressure 128/73 (mmHg) O2 Sat by Pulse 100 100 100 Oximetry 07/23/17 07/23/17 07/23/17 15:01 15:02 15:30 Temperature Pulse Rate 115 113 Respiratory 18 Rate Blood Pressure (mmHg) O2 Sat by Pulse 100 100 Oximetry 07/23/17 07/23/17 07/23/17 15:36 16:00 16:10 Temperature 99 F Pulse Rate 115 115 Respiratory 18 Rate Blood Pressure 110/74 (mmHg) O2 Sat by Pulse 100 100 Oximetry 07/23/17 07/23/17 07/23/17 16:30 17:00 17:01 Temperature Pulse Rate 114 113 114 Respiratory 18 Rate Blood Pressure 117/70 (mmHg) O2 Sat by Pulse 100 100 100 Oximetry 07/23/17 07/23/17 07/23/17 17:22 17:30 18:00 Temperature Pulse Rate 116 114 115 Respiratory 14 Rate Blood Pressure 124/67 (mmHg) O2 Sat by Pulse 100 99 100 Oximetry 07/23/17 07/23/17 07/23/17 18:01 18:15 18:30 Temperature Pulse Rate 118 117 125 Respiratory 18 18 23 Rate Blood Pressure (mmHg) O2 Sat by Pulse 100 100 97 Oximetry 07/23/17 07/23/17 07/23/17 19:00 19:01 19:30 Temperature Pulse Rate 121 120 122 Respiratory 20 22 17 Rate Blood Pressure 116/70 (mmHg) O2 Sat by Pulse 100 100 100 Oximetry 07/23/17 07/23/17 07/23/17 19:32 19:58 20:00 Temperature 100 F Pulse Rate 127 Respiratory 22 15 Rate Blood Pressure (mmHg) O2 Sat by Pulse 92 Oximetry 07/23/17 07/23/17 07/23/17 20:02 20:24 20:30 Temperature Pulse Rate 122 118 119 Respiratory 16 Rate Blood Pressure 123/81 (mmHg) O2 Sat by Pulse 100 100 100 Oximetry 07/23/17 07/23/17 07/23/17 21:00 21:30 21:36 Temperature Pulse Rate 120 122 122 Respiratory 14 Rate Blood Pressure 108/69 108/69 (mmHg) O2 Sat by Pulse 99 99 100 Oximetry 09/07/23/17 07/23/17 22:00 22:01 22:22 Temperature Pulse Rate 120 121 116 Respiratory 14 Rate Blood Pressure 122/69 (mmHg) O2 Sat by Pulse 100 100 100 Oximetry 07/23/17 07/23/17 07/23/17 22:30 23:00 23:30 Temperature Pulse Rate 119 119 118 Respiratory 14 Rate Blood Pressure 104/62 (mmHg) O2 Sat by Pulse 100 99 99 Oximetry 07/23/17 07/23/17 07/24/17 23:42 23:43 00:00 Temperature 99.8 F Pulse Rate 117 117 119 Respiratory 14 Rate Blood Pressure 114/71 (mmHg) O2 Sat by Pulse 99 99 99 Oximetry 07/24/17 07/24/17 07/24/17 00:01 00:30 01:00 Temperature Pulse Rate 119 124 125 Respiratory 16 Rate Blood Pressure (mmHg) O2 Sat by Pulse 99 98 98 Oximetry 07/24/17 07/24/17 07/24/17 01:01 01:30 02:00 Temperature Pulse Rate 123 128 122 Respiratory 18 Rate Blood Pressure 122/87 (mmHg) O2 Sat by Pulse 98 99 97 Oximetry 07/24/17 07/24/17 07/24/17 02:01 02:30 03:00 Temperature Pulse Rate 123 123 121 Respiratory 18 Rate Blood Pressure 109/67 122/72 (mmHg) O2 Sat by Pulse 97 98 99 Oximetry 07/24/17 07/24/17 07/24/17 03:01 03:30 04:00 Temperature 99.1 F Pulse Rate 112 121 121 Respiratory 16 Rate Blood Pressure 113/66 (mmHg) O2 Sat by Pulse 99 98 97 Oximetry 07/24/17 07/24/17 07/24/17 04:01 04:30 04:56 Temperature Pulse Rate 121 118 Respiratory 20 Rate Blood Pressure (mmHg) O2 Sat by Pulse 97 98 Oximetry 07/24/17 07/24/17 07/24/17 05:00 05:01 05:25 Temperature 100.4 F Pulse Rate 119 117 Respiratory Rate Blood Pressure 111/64 (mmHg) O2 Sat by Pulse 98 97 Oximetry 07/24/17 07/24/17 07/24/17 05:30 06:00 06:01 Temperature Pulse Rate 119 118 118 Respiratory 18 Rate Blood Pressure 111/67 (mmHg) O2 Sat by Pulse 98 98 97 Oximetry 07/24/17 07/24/17 07/24/17 06:30 07:00 07:01 Temperature Pulse Rate 112 113 116 Respiratory 22 Rate Blood Pressure 110/65 (mmHg) O2 Sat by Pulse 99 99 99 Oximetry 07/24/17 07/24/17 07/24/17 07:30 07:44 08:00 Temperature 100.2 F Pulse Rate 114 122 Respiratory 16 Rate Blood Pressure 107/67 (mmHg) O2 Sat by Pulse 99 99 Oximetry 07/24/17 07/24/17 07/24/17 08:01 08:24 08:30 Temperature Pulse Rate 122 119 Respiratory 18 Rate Blood Pressure (mmHg) O2 Sat by Pulse 100 99 Oximetry 07/24/17 07/24/17 07/24/17 09:00 09:01 09:27 Temperature Pulse Rate Respiratory 21 24 16 Rate Blood Pressure 109/77 (mmHg) O2 Sat by Pulse Oximetry 07/24/17 07/24/17 07/24/17 09:30 10:00 10:30 Temperature Pulse Rate Respiratory 14 23 23 Rate Blood Pressure (mmHg) O2 Sat by Pulse Oximetry Oxygen Devices in Use Now: None Appearance: alert, eating breakfast Eyes: No Scleral Icterus, PERRLA, - - pronounced left cheek and eye swelling with exoriation and blisters Ears/Nose/Mouth/Throat: NL Teeth, Lips, Gums, Clear Oropharnyx Neck: NL Appearance and Movements; NL JVP, Trachea Midline Respiratory: Symmetrical Chest Expansion and Respiratory Effort, Clear to Auscultation Cardiovascular: NL Sounds; No Murmurs; No JVD, - - tachycardic Abdominal: No Hepatosplenomegaly, - - mildly tender diffusely Lymphatic: No Cervical Adenopathy Extremities: - - left knee markedly edematous, left ankle deformity Skin: - - abrasions on left shoulder, left knee Neurological: Alert and Oriented x 3, - Result Diagrams: 07/24/17 06:40 07/24/17 06:40 Additional Lab and Data: Lab Results 07/22/17 07/22/17 07/22/17 Range/Units 16:16 16:16 16:16 WBC (3.5-10.8) 10^3/ul RBC (4.0-5.4) 10^6/ul Hgb (12.0-16.0) g/dl Hct (35-47) % MCV (80-97) fL MCH (27-31) pg MCHC (31-36) g/dl RDW (10.5-15) % Plt Count (150-450) 10^3/ul MPV (7.4-10.4) um3 Neut % (Auto) (38-83) % Lymph % (Auto) (25-47) % [place] % (Auto) (1-9) % Eos % (Auto) (0-6) % Baso % (Auto) (0-2) % Absolute Neuts (auto) (1.5-7.7) 10^3/ul Absolute Lymphs (auto) (1.0-4.8) 10^3/ul Absolute Monos (auto) (0-0.8) 10^3/ul Absolute Eos (auto) (0-0.6) 10^3/ul Absolute Basos (auto) (0-0.2) 10^3/ul Absolute Nucleated RBC 10^3/ul Nucleated RBC % INR (Anticoag Therapy) 0.88 L (0.89-1.11) APTT 16.6 L (26.0-36.3) seconds VBG pH (7.33-7.43) VBG pCO2 (41-51) mmHg VBG pO2 (35-45) mmHg VBG HCO3 (24-28) mmol/L VBG O2 Saturation (70-80) % VBG Base Excess (0-4) Carbon Monoxide Screen < 4 (<4.0) % Sodium 135 (133-145) mmol/L Potassium 4.5 (3.5-5.0) mmol/L Chloride 103 (101-111) mmol/L Carbon Dioxide 24 (22-32) mmol/L Anion Gap 8 (2-11) mmol/L BUN 13 (6-24) mg/dL Creatinine 1.01 H (0.51-0.95) mg/dL Est GFR ( Amer) 84.6 (>60) Est GFR (Non-Af Amer) 65.7 (>60) BUN/Creatinine Ratio 12.9 (8-20) Glucose 91 (70-100) mg/dL Lactic Acid (0.5-2.0) mmol/L Calcium 9.8 (8.6-10.3) mg/dL Magnesium 1.9 (1.9-2.7) mg/dL Iron (50-212) ug/dL Total Bilirubin 0.80 (0.2-1.0) mg/dL AST 60 H (13-39) U/L ALT 23 (7-52) U/L Alkaline Phosphatase 67 (34-104) U/L Ammonia (16-53) mol/L Total Creatine Kinase 5515 H (10-223) U/L CK-MB (CK-2) 55.3 H (0.6-6.3) ng/mL Troponin I 0.00 (<0.04) ng/mL C-Reactive Protein 9.68 H (< 5.00) mg/L B-Natriuretic Peptide ( - 100) pg/mL Total Protein 8.0 (6.4-8.9) g/dL Albumin 4.3 (3.2-5.2) g/dL Globulin 3.7 (2-4) g/dL Albumin/Globulin Ratio 1.2 (1-3) Lipase < 10 L (11.0-82.0) U/L TSH 1.10 (0.34-5.60) mcIU/mL Beta HCG, Quant < 0.60 mIU/mL Urine Color Urine Appearance Urine pH (5-9) Ur Specific [place] (1.010-1.030) Urine Protein (Negative) Urine Ketones (Negative) Urine Blood (Negative) Urine Nitrate (Negative) Urine Bilirubin (Negative) Urine Urobilinogen (Negative) Ur Leukocyte Esterase (Negative) Urine WBC (Auto) (Absent) Urine RBC (Auto) (Absent) Urine Bacteria (Absent) Urine Glucose (Negative) Salicylates < 2.50 (<30) mg/dL Urine Opiates Screen (None Detect) Acetaminophen < 15 mcg/mL Ur Barbiturates Screen (None Detect) Ur Phencyclidine Scrn (None Detect) Ur Amphetamines Screen (None Detect) U Benzodiazepines Scrn (None Detect) Urine Cocaine Screen (None Detect) U Cannabinoids Screen (None Detect) Serum Alcohol < 10 (<10) mg/dL 07/22/17 07/22/17 07/22/17 Range/Units 16:16 16:22 16:22 WBC (3.5-10.8) 10^3/ul RBC (4.0-5.4) 10^6/ul Hgb (12.0-16.0) g/dl Hct (35-47) % MCV (80-97) fL MCH (27-31) pg MCHC (31-36) g/dl RDW (10.5-15) % Plt Count (150-450) 10^3/ul MPV (7.4-10.4) um3 Neut % (Auto) (38-83) % Lymph % (Auto) (25-47) % [place] % (Auto) (1-9) % Eos % (Auto) (0-6) % Baso % (Auto) (0-2) % Absolute Neuts (auto) (1.5-7.7) 10^3/ul Absolute Lymphs (auto) (1.0-4.8) 10^3/ul Absolute Monos (auto) (0-0.8) 10^3/ul Absolute Eos (auto) (0-0.6) 10^3/ul Absolute Basos (auto) (0-0.2) 10^3/ul Absolute Nucleated RBC 10^3/ul Nucleated RBC % INR (Anticoag Therapy) (0.89-1.11) APTT (26.0-36.3) seconds VBG pH (7.33-7.43) VBG pCO2 (41-51) mmHg VBG pO2 (35-45) mmHg VBG HCO3 (24-28) mmol/L VBG O2 Saturation (70-80) % VBG Base Excess (0-4) Carbon Monoxide Screen (<4.0) % Sodium (133-145) mmol/L Potassium (3.5-5.0) mmol/L Chloride (101-111) mmol/L Carbon Dioxide (22-32) mmol/L Anion Gap (2-11) mmol/L BUN (6-24) mg/dL Creatinine (0.51-0.95) mg/dL Est GFR ( Amer) (>60) Est GFR (Non-Af Amer) (>60) BUN/Creatinine Ratio (8-20) Glucose (70-100) mg/dL Lactic Acid 1.5 (0.5-2.0) mmol/L Calcium (8.6-10.3) mg/dL Magnesium (1.9-2.7) mg/dL Iron (50-212) ug/dL Total Bilirubin (0.2-1.0) mg/dL AST (13-39) U/L ALT (7-52) U/L Alkaline Phosphatase (34-104) U/L Ammonia (16-53) mol/L Total Creatine Kinase (10-223) U/L CK-MB (CK-2) (0.6-6.3) ng/mL Troponin I (<0.04) ng/mL C-Reactive Protein (< 5.00) mg/L B-Natriuretic Peptide ( - 100) pg/mL Total Protein (6.4-8.9) g/dL Albumin (3.2-5.2) g/dL Globulin (2-4) g/dL Albumin/Globulin Ratio (1-3) Lipase (11.0-82.0) U/L TSH (0.34-5.60) mcIU/mL Beta HCG, Quant mIU/mL Urine Color Yellow Urine Appearance Clear Urine pH 5.0 (5-9) Ur Specific [place] 1.017 (1.010-1.030) Urine Protein Negative (Negative) Urine Ketones Negative (Negative) Urine Blood 2+ H (Negative) Urine Nitrate Negative (Negative) Urine Bilirubin Negative (Negative) Urine Urobilinogen Negative (Negative) Ur Leukocyte Esterase Negative (Negative) Urine WBC (Auto) Trace(0-5/hpf) (Absent) Urine RBC (Auto) Absent (Absent) Urine Bacteria Absent (Absent) Urine Glucose Negative (Negative) Salicylates (<30) mg/dL Urine Opiates Screen None detected (None Detect) Acetaminophen mcg/mL Ur Barbiturates Screen None detected (None Detect) Ur Phencyclidine Scrn None detected (None Detect) Ur Amphetamines Screen None detected (None Detect) U Benzodiazepines Scrn Presumptive positive H (None Detect) Urine Cocaine Screen None detected (None Detect) U Cannabinoids Screen None detected (None Detect) Serum Alcohol (<10) mg/dL 07/22/17 07/22/17 07/22/17 Range/Units 16:50 18:14 18:33 WBC 14.9 H (3.5-10.8) 10^3/ul RBC 4.00 (4.0-5.4) 10^6/ul Hgb 11.4 L (12.0-16.0) g/dl Hct 35 (35-47) % MCV 88 (80-97) fL MCH 29 (27-31) pg MCHC 32 (31-36) g/dl RDW 16 H (10.5-15) % Plt Count 197 (150-450) 10^3/ul MPV 8 (7.4-10.4) um3 Neut % (Auto) 91.5 H (38-83) % Lymph % (Auto) 3.0 L (25-47) % Hernando % (Auto) 5.3 (1-9) % Eos % (Auto) 0.1 (0-6) % Baso % (Auto) 0.1 (0-2) % Absolute Neuts (auto) 13.6 H (1.5-7.7) 10^3/ul Absolute Lymphs (auto) 0.4 L (1.0-4.8) 10^3/ul Absolute Monos (auto) 0.8 (0-0.8) 10^3/ul Absolute Eos (auto) 0 (0-0.6) 10^3/ul Absolute Basos (auto) 0 (0-0.2) 10^3/ul Absolute Nucleated RBC 0 10^3/ul Nucleated RBC % 0 INR (Anticoag Therapy) (0.89-1.11) APTT (26.0-36.3) seconds VBG pH 7.27 L (7.33-7.43) VBG pCO2 51 (41-51) mmHg VBG pO2 31 L (35-45) mmHg VBG HCO3 21.1 L (24-28) mmol/L VBG O2 Saturation 61.5 L (70-80) % VBG Base Excess -3.8 L (0-4) Carbon Monoxide Screen (<4.0) % Sodium (133-145) mmol/L Potassium (3.5-5.0) mmol/L Chloride (101-111) mmol/L Carbon Dioxide (22-32) mmol/L Anion Gap (2-11) mmol/L BUN (6-24) mg/dL Creatinine (0.51-0.95) mg/dL Est GFR ( Amer) (>60) Est GFR (Non-Af Amer) (>60) BUN/Creatinine Ratio (8-20) Glucose (70-100) mg/dL Lactic Acid (0.5-2.0) mmol/L Calcium (8.6-10.3) mg/dL Magnesium (1.9-2.7) mg/dL Iron (50-212) ug/dL Total Bilirubin (0.2-1.0) mg/dL AST (13-39) U/L ALT (7-52) U/L Alkaline Phosphatase (34-104) U/L Ammonia 30 (16-53) mol/L Total Creatine Kinase (10-223) U/L CK-MB (CK-2) (0.6-6.3) ng/mL Troponin I (<0.04) ng/mL C-Reactive Protein (< 5.00) mg/L B-Natriuretic Peptide 39 ( - 100) pg/mL Total Protein (6.4-8.9) g/dL Albumin (3.2-5.2) g/dL Globulin (2-4) g/dL Albumin/Globulin Ratio (1-3) Lipase (11.0-82.0) U/L TSH (0.34-5.60) mcIU/mL Beta HCG, Quant mIU/mL Urine Color Urine Appearance Urine pH (5-9) Ur Specific [place] (1.010-1.030) Urine Protein (Negative) Urine Ketones (Negative) Urine Blood (Negative) Urine Nitrate (Negative) Urine Bilirubin (Negative) Urine Urobilinogen (Negative) Ur Leukocyte Esterase (Negative) Urine WBC (Auto) (Absent) Urine RBC (Auto) (Absent) Urine Bacteria (Absent) Urine Glucose (Negative) Salicylates (<30) mg/dL Urine Opiates Screen (None Detect) Acetaminophen mcg/mL Ur Barbiturates Screen (None Detect) Ur Phencyclidine Scrn (None Detect) Ur Amphetamines Screen (None Detect) U Benzodiazepines Scrn (None Detect) Urine Cocaine Screen (None Detect) U Cannabinoids Screen (None Detect) Serum Alcohol (<10) mg/dL 07/22/17 Range/Units 18:33 WBC (3.5-10.8) 10^3/ul RBC (4.0-5.4) 10^6/ul Hgb (12.0-16.0) g/dl Hct (35-47) % MCV (80-97) fL MCH (27-31) pg MCHC (31-36) g/dl RDW (10.5-15) % Plt Count (150-450) 10^3/ul MPV (7.4-10.4) um3 Neut % (Auto) (38-83) % Lymph % (Auto) (25-47) % [place] % (Auto) (1-9) % Eos % (Auto) (0-6) % Baso % (Auto) (0-2) % Absolute Neuts (auto) (1.5-7.7) 10^3/ul Absolute Lymphs (auto) (1.0-4.8) 10^3/ul Absolute Monos (auto) (0-0.8) 10^3/ul Absolute Eos (auto) (0-0.6) 10^3/ul Absolute Basos (auto) (0-0.2) 10^3/ul Absolute Nucleated RBC 10^3/ul Nucleated RBC % INR (Anticoag Therapy) (0.89-1.11) APTT (26.0-36.3) seconds VBG pH (7.33-7.43) VBG pCO2 (41-51) mmHg VBG pO2 (35-45) mmHg VBG HCO3 (24-28) mmol/L VBG O2 Saturation (70-80) % VBG Base Excess (0-4) Carbon Monoxide Screen (<4.0) % Sodium (133-145) mmol/L Potassium (3.5-5.0) mmol/L Chloride (101-111) mmol/L Carbon Dioxide (22-32) mmol/L Anion Gap (2-11) mmol/L BUN (6-24) mg/dL Creatinine (0.51-0.95) mg/dL Est GFR ( Amer) (>60) Est GFR (Non-Af Amer) (>60) BUN/Creatinine Ratio (8-20) Glucose (70-100) mg/dL Lactic Acid (0.5-2.0) mmol/L Calcium (8.6-10.3) mg/dL Magnesium (1.9-2.7) mg/dL Iron 83 (50-212) ug/dL Total Bilirubin (0.2-1.0) mg/dL AST (13-39) U/L ALT (7-52) U/L Alkaline Phosphatase (34-104) U/L Ammonia (16-53) mol/L Total Creatine Kinase (10-223) U/L CK-MB (CK-2) (0.6-6.3) ng/mL Troponin I (<0.04) ng/mL C-Reactive Protein (< 5.00) mg/L B-Natriuretic Peptide ( - 100) pg/mL Total Protein (6.4-8.9) g/dL Albumin (3.2-5.2) g/dL Globulin (2-4) g/dL Albumin/Globulin Ratio (1-3) Lipase (11.0-82.0) U/L TSH (0.34-5.60) mcIU/mL Beta HCG, Quant mIU/mL Urine Color Urine Appearance Urine pH (5-9) Ur Specific [place] (1.010-1.030) Urine Protein (Negative) Urine Ketones (Negative) Urine Blood (Negative) Urine Nitrate (Negative) Urine Bilirubin (Negative) Urine Urobilinogen (Negative) Ur Leukocyte Esterase (Negative) Urine WBC (Auto) (Absent) Urine RBC (Auto) (Absent) Urine Bacteria (Absent) Urine Glucose (Negative) Salicylates (<30) mg/dL Urine Opiates Screen (None Detect) Acetaminophen mcg/mL Ur Barbiturates Screen (None Detect) Ur Phencyclidine Scrn (None Detect) Ur Amphetamines Screen (None Detect) U Benzodiazepines Scrn (None Detect) Urine Cocaine Screen (None Detect) U Cannabinoids Screen (None Detect) Serum Alcohol (<10) mg/dL Microbiology and Other Data: Microbiology 07/23/17 04:25 Aerobic Blood Culture - Preliminary Blood Venous No Growth Day 1 Anaerobic Blood Culture - Preliminary No Growth Day 1 07/23/17 04:15 Aerobic Blood Culture - Preliminary Blood Venous No Growth Day 1 Anaerobic Blood Culture - Preliminary No Growth Day 1 Assess/Plan/Problems-Billing Assessment: 26 yo F found down at home. 1. Found down unresponsive. She continues to say that the trauma sustained was from a fall down the stairs after she took 15 seroquel and 2 glasses of wine. She did not consent to SANE testing. Mentation is improved today. 2. PE Transition heparin to xarelto today. This suggests to me that she may have been down longer than originally suspected. Of note, she has been using crutches for the past month due to her ATF ligament tear, so this may not have been related to this fall, however unable to tell the acuity. Need to monitor closely for bleeding. 3. Seroquel OD Monitor on telemetry. QTc okay. 4. Suicidal Intent Appreciate psych re-evaluation today. Continue 1:1; will likely benefit from inpatient psych when medically stable. 5. Zygomatic arch fracture No ENT coverage today; will call tomorrow. 6. Rhabdomyolysis. CK peaked yesterday; UOP improving. Encourage PO intake today. 7. Dispo transfer to floor today. consult PT.
[2017-07-24] MEDS: Rivaroxaban TAB(*) 15 MG PO SCH ×2 (11:31→21:44)
--- NOTE | 2017-07-24 12:28 | CONSULT ---
Identification - Patient Identification Reason for Psychiatric Consultation: Suicidal Ideation -: Patient is a 26 year old, F admitted on 07/22/17. - MHU Identification Hx Psychiatric Hospitalization: Yes History - Objective HPI: Zabrina is seen in the ICU, where she is already being interviewed by ANTONIO Kahn. The patient is upbeat and friendly, states that she regrets this situation and has resigned herself to coming to the [facility] once medically stable. "This was so dumb. I don't want to hurt myself. I just can't wait to go home and put this behind me." Her speech is more easily understood today and it seems her memory has come back a bit too. She now recalls taking extra quetiapine and clonazepam tablets after drinking wine with friends. She denies it was a suicide attempt. She thinks what happened is that she went to sleep but then got up to grab her cat and then fell down a flight of stairs, not remembering anything thereafter until she awoke in the ICU. She is having some pain in her jaw and legs but states that medicine is helping with this. She denies current SI or HI. Lab Results: Laboratory Tests 07/23/17 07/23/17 07/23/17 04:15 04:15 04:15 WBC 17.1 H RBC 4.11 Hgb 12.1 Hct 36 MCV 88 MCH 29 MCHC 33 RDW 16 H Plt Count 221 MPV 8 Neut % (Auto) 92.7 H Lymph % (Auto) 4.2 L [place] % (Auto) 2.9 Eos % (Auto) 0 Baso % (Auto) 0.2 Absolute Neuts (auto) 15.9 H Absolute Lymphs (auto) 0.7 L Absolute Monos (auto) 0.5 Absolute Eos (auto) 0 Absolute Basos (auto) 0 Absolute Nucleated RBC 0 Nucleated RBC % 0 INR (Anticoag Therapy) APTT 59.3 H Sodium 136 Potassium 3.8 Chloride 108 Carbon Dioxide 22 Anion Gap 6 BUN 11 Creatinine 1.07 H Est GFR ( Amer) 79.1 Est GFR (Non-Af Amer) 61.5 BUN/Creatinine Ratio 10.3 Glucose 116 H Calcium 7.8 L Phosphorus Magnesium Total Bilirubin 0.70 AST 108 H ALT 41 Alkaline Phosphatase 53 Total Creatine Kinase 9060 H Total Protein 5.8 L Albumin 3.0 L Globulin 2.8 Albumin/Globulin Ratio 1.1 07/23/17 07/23/17 07/24/17 12:20 20:20 06:40 WBC 11.2 H RBC 3.23 L Hgb 9.4 L Hct 28 L MCV 87 MCH 29 MCHC 34 RDW 16 H Plt Count 179 MPV 8 Neut % (Auto) 85.5 H Lymph % (Auto) 9.7 L [place] % (Auto) 4.2 Eos % (Auto) 0.4 Baso % (Auto) 0.2 Absolute Neuts (auto) 9.5 H Absolute Lymphs (auto) 1.1 Absolute Monos (auto) 0.5 Absolute Eos (auto) 0 Absolute Basos (auto) 0 Absolute Nucleated RBC 0 Nucleated RBC % 0 INR (Anticoag Therapy) APTT 50.9 H 57.6 H Sodium Potassium Chloride Carbon Dioxide Anion Gap BUN Creatinine Est GFR ( Amer) Est GFR (Non-Af Amer) BUN/Creatinine Ratio Glucose Calcium Phosphorus Magnesium Total Bilirubin AST ALT Alkaline Phosphatase Total Creatine Kinase Total Protein Albumin Globulin Albumin/Globulin Ratio 07/24/17 07/24/17 06:40 06:40 WBC RBC Hgb Hct MCV MCH MCHC RDW Plt Count MPV Neut % (Auto) Lymph % (Auto) [place] % (Auto) Eos % (Auto) Baso % (Auto) Absolute Neuts (auto) Absolute Lymphs (auto) Absolute Monos (auto) Absolute Eos (auto) Absolute Basos (auto) Absolute Nucleated RBC Nucleated RBC % INR (Anticoag Therapy) 0.99 APTT 38.7 H Sodium 135 Potassium 3.5 Chloride 111 Carbon Dioxide 19 L Anion Gap 5 BUN 8 Creatinine 0.95 Est GFR ( Amer) 90.7 Est GFR (Non-Af Amer) 70.6 BUN/Creatinine Ratio 8.4 Glucose 93 Calcium 7.1 L Phosphorus 2.1 L Magnesium 1.5 L Total Bilirubin 0.60 AST 75 H ALT 33 Alkaline Phosphatase 42 Total Creatine Kinase 5107 H Total Protein 4.6 L Albumin 2.2 L Globulin 2.4 Albumin/Globulin Ratio 0.9 L Exam Appearance: Well Developed/Nourished Hygiene: Normal Grooming: Fairly Well Kept Psychomotor Activities: Normal Exhibits Abnormal Movement: No Attitude and Relatedness: Cooperative Eye Contact: Fair - Speech Quality: Unpressured Latencies: Normal Quantity: Appropriate Patient's Decription of Mood: "Okay" Observed Affect: Fair Affect Consistent with: Euthymia Patient's Thought Process: Coherent Thought Content: No Passive Wish, No Suicidal Planning, No Homicidal Ideation, No Paranoid Ideation Experiencing Hallucinations: No, Sensorium is Clear Type of Hallucinations: Visual: No, Auditory: No, Command: No Level of Consciousness: Alert Orientation: Yes Intact, Yes Orientated to Time, Yes Orientated to Place, Yes Orientated to Person Impulse Control: Tenuous Insight and Judgement: Fair Impression - Impression Clinical Impression: 26 y.o. single, mixed-race female with a history of affective problems admitted to the ICU following her body being discovered unconscious at the bottom of a staircase following an intentional overdose on what now appears to be quetiapine and clonazepam. The patient denies that this was a suicide attempt, but she has a history of multiple attempts at self-harm in the past and we feel she would benefit from inpatient psychiatric stabilization at this time. Inpatient DSM-IV Dx: Unspecified Mood DO Merits Inpatient Hospitalization: Yes Problem List - MHU Problems Type of Problem: Mood Status of Problem: Active Plan - Treatment Plan Treatment Plan: The patient awaits medical stabilization. Thereafter she should be transferred to the [facility] on 9. involuntary legal status. Continue to hold psych meds and leave on 1:1 observations for safety. Psychiatry will continue to follow. Medications: Current Medications Al Hydrox/Mg Hydrox/Simethicone (Maalox Plus*) 30 ml PO Q6H PRN PRN Reason: INDIGESTION Docusate Sodium (Colace Cap*) 100 mg PO BID PRN PRN Reason: CONSTIPATION Lorazepam (Ativan Tab(*)) 2 mg PO BID [facility] Last Admin: 07/24/17 09:27 Dose: 2 mg Ondansetron HCl (Zofran Inj*) 4 mg IV Q4H PRN PRN Reason: NAUSEA/VOMITING Rivaroxaban (Xarelto(*)) 15 mg PO BID [facility] Last Admin: 07/24/17 11:31 Dose: 15 mg Senna (Senokot Tab*) 1 tab PO BID PRN PRN Reason: CONSTIPATION Tramadol HCl (Ultram*) 50 mg PO Q6H PRN PRN Reason: PAIN Last Admin: 07/24/17 08:17 Dose: 50 mg - Discharge Plan Discharge Plan: Inpatient Hospitalization
[2017-07-25 05:33] LABS: Hematocrit 27 % (35-47); Hemoglobin 9.2 g/dl (12.0-16.0); Mean Corpuscular HGB Conc 34 g/dl (31-36); Mean Corpuscular Hemoglobin 30 pg (27-31); Mean Corpuscular Volume 88 fL (80-97); Mean Platelet Volume 7 um3 (7.4-10.4); Red Cell Distribution Width 16 % (10.5-15); White Blood Count 8.4 10^3/ul (3.5-10.8)
[2017-07-25 06:14] LABS: BUN/Creatinine Ratio 4.9 (8-20); EGFR African American 109.1 (>60); EGFR Non-African American 84.8 (>60); Magnesium 1.6 mg/dL (1.9-2.7); Phosphorus 2.4 mg/dL (2.5-5.0); Potassium 3.4 mmol/L (3.5-5.0)
[2017-07-25 06:21] LABS: Ferritin 52.2 ng/mL (11-307)
[2017-07-25] MEDS ORDERED: Magnesium Oxide TAB* 400 MG PO ONE (09:45)
--- NOTE | 2017-07-25 09:50 | PN ---
Subjective Date of Service: 07/25/17 Interval History: Feels well today, anxious to get to the second floor. She expresses regret about overdosing, and wants to get to inpatient psych so she can get home as soon as possible. She worked with physical therapy yesterday and was able to walk to the bathroom with crutches. She does have some shortness of breath, no cough or chest pain, no suicidal ideations. She complains of pain in her left foot. No constipation or diarrhea, afebrile. Family History: Unchanged from Admission Social History: Unchanged from Admission Past Medical History: Unchanged from Admission Objective Active Medications: Al Hydrox/Mg Hydrox/Simethicone (Maalox Plus*) 30 ml PO Q6H PRN PRN Reason: INDIGESTION Docusate Sodium (Colace Cap*) 100 mg PO BID PRN PRN Reason: CONSTIPATION Lorazepam (Ativan Tab(*)) 2 mg PO BID [facility] Last Admin: 07/24/17 21:44 Dose: 2 mg Magnesium Oxide (Magox 400 Tab*) 400 mg PO DAILY [facility] Magnesium Oxide (Magox 400 Tab*) 400 mg PO ONCE ONE Stop: 07/25/17 09:46 Ondansetron HCl (Zofran Inj*) 4 mg IV Q4H PRN PRN Reason: NAUSEA/VOMITING Potassium Chloride (Klor Con Er Tab*) 20 meq PO DAILY [facility] Rivaroxaban (Xarelto(*)) 15 mg PO BID [facility] Last Admin: 07/24/17 21:44 Dose: 15 mg Senna (Senokot Tab*) 1 tab PO BID PRN PRN Reason: CONSTIPATION Tramadol HCl (Ultram*) 50 mg PO Q6H PRN PRN Reason: PAIN Last Admin: 07/24/17 08:17 Dose: 50 mg Vital Signs 07/24/17 07/24/17 07/24/17 10:00 10:30 12:03 Temperature 98.1 F Pulse Rate 109 Respiratory 23 23 16 Rate Blood Pressure 120/75 (mmHg) O2 Sat by Pulse 100 Oximetry 07/24/17 07/24/17 07/24/17 17:19 19:56 20:00 Temperature 98.5 F 98.2 F Pulse Rate 102 122 Respiratory 18 20 18 Rate Blood Pressure 126/80 114/76 (mmHg) O2 Sat by Pulse 98 99 Oximetry 07/24/17 07/24/17 07/24/17 21:44 23:43 23:44 Temperature 98.6 F Pulse Rate 100 Respiratory 18 16 18 Rate Blood Pressure 121/75 (mmHg) O2 Sat by Pulse 100 Oximetry 07/25/17 07/25/17 03:22 06:41 Temperature 98.5 F 98.3 F Pulse Rate 100 103 Respiratory 16 16 Rate Blood Pressure 108/64 129/75 (mmHg) O2 Sat by Pulse 99 98 Oximetry Oxygen Devices in Use Now: None Appearance: alert, well appearing, no distress, speech understandable and controlled Eyes: No Scleral Icterus, PERRLA Ears/Nose/Mouth/Throat: NL Teeth, Lips, Gums, Clear Oropharnyx, - - left cheek swollen with abrasions and blisters Neck: NL Appearance and Movements; NL JVP Respiratory: Symmetrical Chest Expansion and Respiratory Effort, Clear to Auscultation Cardiovascular: - - tachycardic, no murmurs Abdominal: NL Sounds; No Tenderness; No Distention, No Hepatosplenomegaly Lymphatic: No Cervical Adenopathy Extremities: - - left knee and thigh edematous, left ankle internally rotated with swelling over lateral malleolus Neurological: Alert and Oriented x 3 Result Diagrams: 07/25/17 05:16 07/25/17 05:15 Additional Lab and Data: Lab Results 07/22/17 07/22/17 07/22/17 Range/Units 16:16 16:16 16:16 WBC (3.5-10.8) 10^3/ul RBC (4.0-5.4) 10^6/ul Hgb (12.0-16.0) g/dl Hct (35-47) % MCV (80-97) fL MCH (27-31) pg MCHC (31-36) g/dl RDW (10.5-15) % Plt Count (150-450) 10^3/ul MPV (7.4-10.4) um3 Neut % (Auto) (38-83) % Lymph % (Auto) (25-47) % Sebastian % (Auto) (1-9) % Eos % (Auto) (0-6) % Baso % (Auto) (0-2) % Absolute Neuts (auto) (1.5-7.7) 10^3/ul Absolute Lymphs (auto) (1.0-4.8) 10^3/ul Absolute Monos (auto) (0-0.8) 10^3/ul Absolute Eos (auto) (0-0.6) 10^3/ul Absolute Basos (auto) (0-0.2) 10^3/ul Absolute Nucleated RBC 10^3/ul Nucleated RBC % INR (Anticoag Therapy) 0.88 L (0.89-1.11) APTT 16.6 L (26.0-36.3) seconds VBG pH (7.33-7.43) VBG pCO2 (41-51) mmHg VBG pO2 (35-45) mmHg VBG HCO3 (24-28) mmol/L VBG O2 Saturation (70-80) % VBG Base Excess (0-4) Carbon Monoxide Screen < 4 (<4.0) % Sodium 135 (133-145) mmol/L Potassium 4.5 (3.5-5.0) mmol/L Chloride 103 (101-111) mmol/L Carbon Dioxide 24 (22-32) mmol/L Anion Gap 8 (2-11) mmol/L BUN 13 (6-24) mg/dL Creatinine 1.01 H (0.51-0.95) mg/dL Est GFR ( Amer) 84.6 (>60) Est GFR (Non-Af Amer) 65.7 (>60) BUN/Creatinine Ratio 12.9 (8-20) Glucose 91 (70-100) mg/dL Lactic Acid (0.5-2.0) mmol/L Calcium 9.8 (8.6-10.3) mg/dL Magnesium 1.9 (1.9-2.7) mg/dL Iron (50-212) ug/dL Total Bilirubin 0.80 (0.2-1.0) mg/dL AST 60 H (13-39) U/L ALT 23 (7-52) U/L Alkaline Phosphatase 67 (34-104) U/L Ammonia (16-53) mol/L Total Creatine Kinase 5515 H (10-223) U/L CK-MB (CK-2) 55.3 H (0.6-6.3) ng/mL Troponin I 0.00 (<0.04) ng/mL C-Reactive Protein 9.68 H (< 5.00) mg/L B-Natriuretic Peptide ( - 100) pg/mL Total Protein 8.0 (6.4-8.9) g/dL Albumin 4.3 (3.2-5.2) g/dL Globulin 3.7 (2-4) g/dL Albumin/Globulin Ratio 1.2 (1-3) Lipase < 10 L (11.0-82.0) U/L TSH 1.10 (0.34-5.60) mcIU/mL Beta HCG, Quant < 0.60 mIU/mL Urine Color Urine Appearance Urine pH (5-9) Ur Specific [place] (1.010-1.030) Urine Protein (Negative) Urine Ketones (Negative) Urine Blood (Negative) Urine Nitrate (Negative) Urine Bilirubin (Negative) Urine Urobilinogen (Negative) Ur Leukocyte Esterase (Negative) Urine WBC (Auto) (Absent) Urine RBC (Auto) (Absent) Urine Bacteria (Absent) Urine Glucose (Negative) Salicylates < 2.50 (<30) mg/dL Urine Opiates Screen (None Detect) Acetaminophen < 15 mcg/mL Ur Barbiturates Screen (None Detect) Ur Phencyclidine Scrn (None Detect) Ur Amphetamines Screen (None Detect) U Benzodiazepines Scrn (None Detect) Urine Cocaine Screen (None Detect) U Cannabinoids Screen (None Detect) Serum Alcohol < 10 (<10) mg/dL 07/22/17 07/22/17 07/22/17 Range/Units 16:16 16:22 16:22 WBC (3.5-10.8) 10^3/ul RBC (4.0-5.4) 10^6/ul Hgb (12.0-16.0) g/dl Hct (35-47) % MCV (80-97) fL MCH (27-31) pg MCHC (31-36) g/dl RDW (10.5-15) % Plt Count (150-450) 10^3/ul MPV (7.4-10.4) um3 Neut % (Auto) (38-83) % Lymph % (Auto) (25-47) % [place] % (Auto) (1-9) % Eos % (Auto) (0-6) % Baso % (Auto) (0-2) % Absolute Neuts (auto) (1.5-7.7) 10^3/ul Absolute Lymphs (auto) (1.0-4.8) 10^3/ul Absolute Monos (auto) (0-0.8) 10^3/ul Absolute Eos (auto) (0-0.6) 10^3/ul Absolute Basos (auto) (0-0.2) 10^3/ul Absolute Nucleated RBC 10^3/ul Nucleated RBC % INR (Anticoag Therapy) (0.89-1.11) APTT (26.0-36.3) seconds VBG pH (7.33-7.43) VBG pCO2 (41-51) mmHg VBG pO2 (35-45) mmHg VBG HCO3 (24-28) mmol/L VBG O2 Saturation (70-80) % VBG Base Excess (0-4) Carbon Monoxide Screen (<4.0) % Sodium (133-145) mmol/L Potassium (3.5-5.0) mmol/L Chloride (101-111) mmol/L Carbon Dioxide (22-32) mmol/L Anion Gap (2-11) mmol/L BUN (6-24) mg/dL Creatinine (0.51-0.95) mg/dL Est GFR ( Amer) (>60) Est GFR (Non-Af Amer) (>60) BUN/Creatinine Ratio (8-20) Glucose (70-100) mg/dL Lactic Acid 1.5 (0.5-2.0) mmol/L Calcium (8.6-10.3) mg/dL Magnesium (1.9-2.7) mg/dL Iron (50-212) ug/dL Total Bilirubin (0.2-1.0) mg/dL AST (13-39) U/L ALT (7-52) U/L Alkaline Phosphatase (34-104) U/L Ammonia (16-53) mol/L Total Creatine Kinase (10-223) U/L CK-MB (CK-2) (0.6-6.3) ng/mL Troponin I (<0.04) ng/mL C-Reactive Protein (< 5.00) mg/L B-Natriuretic Peptide ( - 100) pg/mL Total Protein (6.4-8.9) g/dL Albumin (3.2-5.2) g/dL Globulin (2-4) g/dL Albumin/Globulin Ratio (1-3) Lipase (11.0-82.0) U/L TSH (0.34-5.60) mcIU/mL Beta HCG, Quant mIU/mL Urine Color Yellow Urine Appearance Clear Urine pH 5.0 (5-9) Ur Specific [place] 1.017 (1.010-1.030) Urine Protein Negative (Negative) Urine Ketones Negative (Negative) Urine Blood 2+ H (Negative) Urine Nitrate Negative (Negative) Urine Bilirubin Negative (Negative) Urine Urobilinogen Negative (Negative) Ur Leukocyte Esterase Negative (Negative) Urine WBC (Auto) Trace(0-5/hpf) (Absent) Urine RBC (Auto) Absent (Absent) Urine Bacteria Absent (Absent) Urine Glucose Negative (Negative) Salicylates (<30) mg/dL Urine Opiates Screen None detected (None Detect) Acetaminophen mcg/mL Ur Barbiturates Screen None detected (None Detect) Ur Phencyclidine Scrn None detected (None Detect) Ur Amphetamines Screen None detected (None Detect) U Benzodiazepines Scrn Presumptive positive H (None Detect) Urine Cocaine Screen None detected (None Detect) U Cannabinoids Screen None detected (None Detect) Serum Alcohol (<10) mg/dL 07/22/17 07/22/17 07/22/17 Range/Units 16:50 18:14 18:33 WBC 14.9 H (3.5-10.8) 10^3/ul RBC 4.00 (4.0-5.4) 10^6/ul Hgb 11.4 L (12.0-16.0) g/dl Hct 35 (35-47) % MCV 88 (80-97) fL MCH 29 (27-31) pg MCHC 32 (31-36) g/dl RDW 16 H (10.5-15) % Plt Count 197 (150-450) 10^3/ul MPV 8 (7.4-10.4) um3 Neut % (Auto) 91.5 H (38-83) % Lymph % (Auto) 3.0 L (25-47) % Sebastian % (Auto) 5.3 (1-9) % Eos % (Auto) 0.1 (0-6) % Baso % (Auto) 0.1 (0-2) % Absolute Neuts (auto) 13.6 H (1.5-7.7) 10^3/ul Absolute Lymphs (auto) 0.4 L (1.0-4.8) 10^3/ul Absolute Monos (auto) 0.8 (0-0.8) 10^3/ul Absolute Eos (auto) 0 (0-0.6) 10^3/ul Absolute Basos (auto) 0 (0-0.2) 10^3/ul Absolute Nucleated RBC 0 10^3/ul Nucleated RBC % 0 INR (Anticoag Therapy) (0.89-1.11) APTT (26.0-36.3) seconds VBG pH 7.27 L (7.33-7.43) VBG pCO2 51 (41-51) mmHg VBG pO2 31 L (35-45) mmHg VBG HCO3 21.1 L (24-28) mmol/L VBG O2 Saturation 61.5 L (70-80) % VBG Base Excess -3.8 L (0-4) Carbon Monoxide Screen (<4.0) % Sodium (133-145) mmol/L Potassium (3.5-5.0) mmol/L Chloride (101-111) mmol/L Carbon Dioxide (22-32) mmol/L Anion Gap (2-11) mmol/L BUN (6-24) mg/dL Creatinine (0.51-0.95) mg/dL Est GFR ( Amer) (>60) Est GFR (Non-Af Amer) (>60) BUN/Creatinine Ratio (8-20) Glucose (70-100) mg/dL Lactic Acid (0.5-2.0) mmol/L Calcium (8.6-10.3) mg/dL Magnesium (1.9-2.7) mg/dL Iron (50-212) ug/dL Total Bilirubin (0.2-1.0) mg/dL AST (13-39) U/L ALT (7-52) U/L Alkaline Phosphatase (34-104) U/L Ammonia 30 (16-53) mol/L Total Creatine Kinase (10-223) U/L CK-MB (CK-2) (0.6-6.3) ng/mL Troponin I (<0.04) ng/mL C-Reactive Protein (< 5.00) mg/L B-Natriuretic Peptide 39 ( - 100) pg/mL Total Protein (6.4-8.9) g/dL Albumin (3.2-5.2) g/dL Globulin (2-4) g/dL Albumin/Globulin Ratio (1-3) Lipase (11.0-82.0) U/L TSH (0.34-5.60) mcIU/mL Beta HCG, Quant mIU/mL Urine Color Urine Appearance Urine pH (5-9) Ur Specific [place] (1.010-1.030) Urine Protein (Negative) Urine Ketones (Negative) Urine Blood (Negative) Urine Nitrate (Negative) Urine Bilirubin (Negative) Urine Urobilinogen (Negative) Ur Leukocyte Esterase (Negative) Urine WBC (Auto) (Absent) Urine RBC (Auto) (Absent) Urine Bacteria (Absent) Urine Glucose (Negative) Salicylates (<30) mg/dL Urine Opiates Screen (None Detect) Acetaminophen mcg/mL Ur Barbiturates Screen (None Detect) Ur Phencyclidine Scrn (None Detect) Ur Amphetamines Screen (None Detect) U Benzodiazepines Scrn (None Detect) Urine Cocaine Screen (None Detect) U Cannabinoids Screen (None Detect) Serum Alcohol (<10) mg/dL 07/22/17 Range/Units 18:33 WBC (3.5-10.8) 10^3/ul RBC (4.0-5.4) 10^6/ul Hgb (12.0-16.0) g/dl Hct (35-47) % MCV (80-97) fL MCH (27-31) pg MCHC (31-36) g/dl RDW (10.5-15) % Plt Count (150-450) 10^3/ul MPV (7.4-10.4) um3 Neut % (Auto) (38-83) % Lymph % (Auto) (25-47) % Sebastian % (Auto) (1-9) % Eos % (Auto) (0-6) % Baso % (Auto) (0-2) % Absolute Neuts (auto) (1.5-7.7) 10^3/ul Absolute Lymphs (auto) (1.0-4.8) 10^3/ul Absolute Monos (auto) (0-0.8) 10^3/ul Absolute Eos (auto) (0-0.6) 10^3/ul Absolute Basos (auto) (0-0.2) 10^3/ul Absolute Nucleated RBC 10^3/ul Nucleated RBC % INR (Anticoag Therapy) (0.89-1.11) APTT (26.0-36.3) seconds VBG pH (7.33-7.43) VBG pCO2 (41-51) mmHg VBG pO2 (35-45) mmHg VBG HCO3 (24-28) mmol/L VBG O2 Saturation (70-80) % VBG Base Excess (0-4) Carbon Monoxide Screen (<4.0) % Sodium (133-145) mmol/L Potassium (3.5-5.0) mmol/L Chloride (101-111) mmol/L Carbon Dioxide (22-32) mmol/L Anion Gap (2-11) mmol/L BUN (6-24) mg/dL Creatinine (0.51-0.95) mg/dL Est GFR ( Amer) (>60) Est GFR (Non-Af Amer) (>60) BUN/Creatinine Ratio (8-20) Glucose (70-100) mg/dL Lactic Acid (0.5-2.0) mmol/L Calcium (8.6-10.3) mg/dL Magnesium (1.9-2.7) mg/dL Iron 83 (50-212) ug/dL Total Bilirubin (0.2-1.0) mg/dL AST (13-39) U/L ALT (7-52) U/L Alkaline Phosphatase (34-104) U/L Ammonia (16-53) mol/L Total Creatine Kinase (10-223) U/L CK-MB (CK-2) (0.6-6.3) ng/mL Troponin I (<0.04) ng/mL C-Reactive Protein (< 5.00) mg/L B-Natriuretic Peptide ( - 100) pg/mL Total Protein (6.4-8.9) g/dL Albumin (3.2-5.2) g/dL Globulin (2-4) g/dL Albumin/Globulin Ratio (1-3) Lipase (11.0-82.0) U/L TSH (0.34-5.60) mcIU/mL Beta HCG, Quant mIU/mL Urine Color Urine Appearance Urine pH (5-9) Ur Specific [place] (1.010-1.030) Urine Protein (Negative) Urine Ketones (Negative) Urine Blood (Negative) Urine Nitrate (Negative) Urine Bilirubin (Negative) Urine Urobilinogen (Negative) Ur Leukocyte Esterase (Negative) Urine WBC (Auto) (Absent) Urine RBC (Auto) (Absent) Urine Bacteria (Absent) Urine Glucose (Negative) Salicylates (<30) mg/dL Urine Opiates Screen (None Detect) Acetaminophen mcg/mL Ur Barbiturates Screen (None Detect) Ur Phencyclidine Scrn (None Detect) Ur Amphetamines Screen (None Detect) U Benzodiazepines Scrn (None Detect) Urine Cocaine Screen (None Detect) U Cannabinoids Screen (None Detect) Serum Alcohol (<10) mg/dL Microbiology and Other Data: Microbiology 07/23/17 04:25 Aerobic Blood Culture - Preliminary Blood Venous No Growth Day 1 Anaerobic Blood Culture - Preliminary No Growth Day 1 07/23/17 04:15 Aerobic Blood Culture - Preliminary Blood Venous No Growth Day 1 Anaerobic Blood Culture - Preliminary No Growth Day 1 Assess/Plan/Problems-Billing Assessment: 26 yo F found down at home. 1. Found down unresponsive. She continues to say that the trauma sustained was from a fall down the stairs after she took 15 seroquel and 2 glasses of wine. She did not consent to SANE testing. Mentation is improved today. 2. PE with DVT (LLE) RV function was normal on TTE yesterday. Continue xarelto. Of note, she has been using crutches for the past month due to her ATF ligament tear, so this may not have been related to this fall, however unable to tell the acuity. 3. Seroquel OD QTc has been okay; now out of the window of needing continuous monitoring 4. Suicidal Intent Medically stable for transfer to inpatient psych involuntarily. 5. Zygomatic arch fracture Consult ENT today 6. Rhabdomyolysis. CK continues to fall off of IVF; stable to maintain hydration orally 7. ATF Ligament Tear Following with ortho outpatient; plan for conservative management with PT and bracing. Will need outpatient follow up upon discharge. 7. Dispo medically stable for inpatient psych
[2017-07-25] MEDS ORDERED: Magnesium Oxide TAB* 400 MG PO SCH (10:00)
[2017-07-25] MEDS: Potassium Chlor TAB* 20 MEQ TAB.ER PO SCH ×2 (10:05→10:07)
[2017-07-25] MEDS: LORazepam TAB(*) 1 MG PO SCH (10:06)
[2017-07-25] MEDS: Rivaroxaban TAB(*) 15 MG PO SCH (10:06)
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
[2017-07-25 12:25] VITALS: BP 120/79
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
== END 2017-07-25 13:15 | DRG 812 ==
LOC: ED 15:41 → ICU 20:16 → MED 07-24 09:54
PROVIDERS: ADMIT Pediatrics; ATTEND Internal Medicine
DX: T43.592A Poisoning by other antipsychotics and neuroleptics, intentional self-harm, initial encounter (principal); R40.2122 Coma scale, eyes open, to pain, at arrival to emergency department; I26.99 Other pulmonary embolism without acute cor pulmonale; R40.2222 Coma scale, best verbal response, incomprehensible words, at arrival to emergency department; M62.82 Rhabdomyolysis; I82.4Y2 Acute embolism and thrombosis of unspecified deep veins of left proximal lower extremity; S02.40FA Zygomatic fracture, left side, initial encounter for closed fracture; F50.9 Eating disorder, unspecified; F32.9 Major depressive disorder, single episode, unspecified; R32 Unspecified urinary incontinence; Z88.8 Allergy status to other drugs, medicaments and biological substances; K21.9 Gastro-esophageal reflux disease without esophagitis; M46.90 Unspecified inflammatory spondylopathy, site unspecified; F90.9 Attention-deficit hyperactivity disorder, unspecified type; F41.0 Panic disorder [episodic paroxysmal anxiety]; F43.10 Post-traumatic stress disorder, unspecified; Z82.49 Family history of ischemic heart disease and other diseases of the circulatory system; F17.210 Nicotine dependence, cigarettes, uncomplicated; R40.2352 Coma scale, best motor response, localizes pain, at arrival to emergency department; S93.492A Sprain of other ligament of left ankle, initial encounter; W18.30XA Fall on same level, unspecified, initial encounter; Y92.009 Unspecified place in unspecified non-institutional (private) residence as the place of occurrence of the external cause
CPT/HCPCS: 36415; 70450; 70486; 71010; 71260; 72125; 74177; 80048; 80053; 80307; 80320; 80329; 81003; 81015; 82140; 82375; 82550; 82553; 82728; 82803; 83540; 83605; 83690; 83735; 83880; 84100; 84443; 84484; 84702; 85025; 85610; 85730; 86140; 87040; 87641; 93005; 93306; 93970; A9270-GY; G0480; J2310; J2543; Q9967

== ENCOUNTER 2017-07-25 10:55 | Inpatient (IN) | payer OTHER ==
[2017-07-25] MEDS ORDERED: Al Hydrox/Mg Hydrox/Simet LIQ* 30 ML UDC PO PRN (12:00)
[2017-07-25] MEDS: QUEtiapine TAB* 25 MG PO SCH (21:46)
[2017-07-25] MEDS: Zolpidem TAB* 10 MG PO SCH (21:46)
[2017-07-25] MEDS: CMCS:Vilazodone (NF) 40 MG TAB PO SCH (21:47)
[2017-07-26] MEDS ORDERED: PINDOLOL 5 MG PO SCH (09:00)
[2017-07-26] MEDS: Vitamin THERAPEUTIC TAB PO SCH (09:48)
[2017-07-26] MEDS: Omeprazole CAP* 20 MG PO SCH (09:48)
[2017-07-26] MEDS: Cetirizine* 10 MG TAB PO SCH (09:48)
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
[2017-07-26] MEDS ORDERED: Rivaroxaban TAB(*) 20 MG TAB PO SCH ×2 (11:00→21:00)
[2017-07-26] MEDS ORDERED: Rivaroxaban TAB(*) 15 MG PO SCH (11:00)
[2017-07-26] MEDS ORDERED: clonazePAM TAB(*) 1 MG PO ONE (12:58)
[2017-07-26] MEDS ORDERED: Rivaroxaban TAB(*) 15 MG PO ONE (12:59)
[2017-07-26] MEDS: Rivaroxaban TAB(*) 15 MG PO SCH ×2 (13:21→21:15)
[2017-07-26] MEDS: CMCS:Vilazodone (NF) 40 MG TAB PO SCH (21:13)
[2017-07-26] MEDS: Ibuprofen TAB* 800 MG PO PRN (21:15)
[2017-07-26] MEDS: Zolpidem TAB* 10 MG PO SCH (21:15)
[2017-07-26] MEDS: QUEtiapine TAB* 25 MG PO SCH (21:16)
[2017-07-26] MEDS: PINDOLOL 10 MG PO SCH (21:16)
[2017-07-27] MEDS: Cetirizine* 10 MG TAB PO SCH (08:26)
[2017-07-27] MEDS: Omeprazole CAP* 20 MG PO SCH (08:26)
[2017-07-27] MEDS: Rivaroxaban TAB(*) 15 MG PO SCH ×2 (08:26→20:52)
[2017-07-27] MEDS: Ibuprofen TAB* 800 MG PO PRN (08:27)
[2017-07-27] MEDS: Vitamin THERAPEUTIC TAB PO SCH (08:27)
--- NOTE | 2017-07-27 15:00 | PN ---
Subjective - Subjective Service Type: 62278 Hosp care 15 min low complexity Subjective: Patient visible in the milieu, mostly isolated. She is social with staff. Patient participates in groups and milieu activities. Patient informed the additional mood stabilizer, Trileptal, recommended by Dr. Steen would disrupt metabolism of Nuvaring contraception patient is currently on, making Nuvaring ineffective. Patient amenable to start of Topamax 25mg po qhs for mood stabilization/augmentation. Patient made aware of wt. loss s/e and this provider asked patient to maintain mindfulness that she does not go back into behaviors of her eating disorder if she begins to lose weight. Patient acknowledges understanding. Patient is med compliant and reports no med s/e's. Patient reports fair sleep but ongoing poor appetite due to pain on chewing. Patient reports no SI/HI and no AH/VH. Objective - Appearance Appearance: Thin Framed Dysmorphic Features: Yes Hygiene: Normal Grooming: Fairly Well Kept - Behavior Psychomotor Activities: Normal Exhibits Abnormal Movement: No - Attitude and Relatedness Attitude and Relatedness: Cooperative Eye Contact: Good - Speech Quality: Unpressured Latencies: Normal Quantity: Appropriate - Mood Patient's Decription of Mood: "Good" - Affect Observed Affect: Fair Affect Consistent with: Euthymia - Thought Process Patient's Thought Process: Coherent Thought Content: No Passive Wish, No Suicidal Planning, No Homicidal Ideation, No Paranoid Ideation - Sensorium Experiencing Hallucinations: No, Sensorium is Clear Type of Hallucinations: Visual: No, Auditory: No, Command: No - Level of Consciousness Level of Consciousness: Alert Orientation: Yes Intact, Yes Orientated to Time, Yes Orientated to Place, Yes Orientated to Person - Impulse Control Impulse Control: Intact - Insight and Judgement Insight and Judgement: Good - Group Participation Particating in Group Activities: Yes - Medication Management Medication Management Adherence: Yes Assessment - Assessment Merits Inpatient Hospitalization: For Immediate Safety, For Stabilization Inpatient DSM-IV Dx: 1. PTSD. 2. Borderline PD. 3. Anorexia Nervosa Plan - Plan Treatment Plan: Name: RAMONITA CHOUDHURY Birthdate: 1990 [id number] PLAN: ------- 1. Continue admission to [facility] for safety and symptom mx. 2. Continue home psychotropic med regimen as currently Rx'd. 3. Continue Xarelto 15mg po BID for treatment of DVT and PE for 21days(started ), THEN Xarelto 20mg po daily for 3months as recommended by Internal Medicine. 4. Facial surgery consulted(Dr. Gallegos#[phone]) for evaluation and mx of fractured left zygomatic arch which is noted to be minimally displaced on Maxillofacial CT. Dr. Gallegos feels patient can be evaluated in the outpt setting as he has to wait for swelling to go down to evaluate. Appt to be made for next week. 5. Patient gives informed consent to start Topamax at 25mg po qhs for mood stabilization/mood augmentation, with plan to increase dose 25mg per week with goal of 300mg po qhs. 6. Will restart Clonazepam at 2mg po daily. 7. Will discuss mx of patient's anxiety with outpt psychiatrist, Dr. Steen. 8. Continue compiling collateral information from Mom, BF, as well as outpt MH providers. 9. Patient to participate in milieu activities and groups. Medications: Current Medications Al Hydrox/Mg Hydrox/Simethicone (Maalox Plus*) 30 ml PO Q4H PRN PRN Reason: INDIGESTION Cetirizine HCl (Zyrtec*) 10 mg PO DAILY [facility] Last Admin: 07/27/17 08:26 Dose: 10 mg Ibuprofen (Motrin Tab*) 800 mg PO Q8H PRN PRN Reason: PAIN Last Admin: 07/27/17 08:27 Dose: 800 mg Multivitamins (Theragran Tab*) 1 tab PO DAILY [facility] Last Admin: 07/27/17 08:27 Dose: Not Given Omeprazole (Prilosec Cap*) 20 mg PO DAILY@0600 [facility] Last Admin: 07/27/17 08:26 Dose: 20 mg Pindolol (Pindolol(Nf)) 10 mg PO BEDTIME [facility] Last Admin: 07/26/17 21:16 Dose: 10 mg Quetiapine Fumarate (Seroquel Tab*) 50 mg PO BEDTIME [facility] Last Admin: 07/26/17 21:16 Dose: 50 mg Rivaroxaban (Xarelto(*)) 15 mg PO 0900,2100 [facility] Last Admin: 07/27/17 08:26 Dose: 15 mg Topiramate (Topamax(*)) 25 mg PO BEDTIME [facility] Vilazodone HCl (Viibryd (Nf)) 40 mg PO BEDTIME [facility] Last Admin: 07/26/17 21:13 Dose: Not Given Zolpidem Tartrate (Ambien Tab*) 10 mg PO BEDTIME [facility] Last Admin: 07/26/17 21:15 Dose: 10 mg - Discharge Plan Discharge Plan: Outpatient Follow Up Outpatient Program: [facility]
[2017-07-27] MEDS ORDERED: clonazePAM TAB(*) 1 MG PO ONE (18:00)
[2017-07-27] MEDS: CMCS:Vilazodone (NF) 40 MG TAB PO SCH (20:50)
[2017-07-27] MEDS: PINDOLOL 10 MG PO SCH (20:50)
[2017-07-27] MEDS: Zolpidem TAB* 10 MG PO SCH (20:51)
[2017-07-27] MEDS: QUEtiapine TAB* 25 MG PO SCH (20:51)
[2017-07-27] MEDS ORDERED: Topiramate TAB(*) 25 MG PO SCH (21:00)
[2017-07-28] MEDS: Omeprazole CAP* 20 MG PO SCH (06:20)
[2017-07-28 07:46] VITALS: BP 118/72
[2017-07-28] MEDS: Vitamin THERAPEUTIC TAB PO SCH (08:48)
[2017-07-28] MEDS: Ibuprofen TAB* 800 MG PO PRN (08:48)
[2017-07-28] MEDS: Cetirizine* 10 MG TAB PO SCH (08:49)
[2017-07-28] MEDS: Rivaroxaban TAB(*) 15 MG PO SCH (08:49)
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
[2017-07-28 12:00] LABS: HDL Cholesterol 57.4 mg/dL
== END 2017-07-28 12:00 | disposition home or self-care (01) | DRG 755 ==
LOC: BSU 13:15
PROVIDERS: ADMIT Psychiatry & Neurology Psychiatry; ATTEND Psychiatry & Neurology Psychiatry
DX: F43.10 Post-traumatic stress disorder, unspecified (principal); F50.00 Anorexia nervosa, unspecified; F60.3 Borderline personality disorder; Z79.899 Other long term (current) drug therapy; Z88.6 Allergy status to analgesic agent; Z88.8 Allergy status to other drugs, medicaments and biological substances; Z81.8 Family history of other mental and behavioral disorders; Z81.1 Family history of alcohol abuse and dependence; Z81.3 Family history of other psychoactive substance abuse and dependence
CPT/HCPCS: 36415; 80061; 83036; 99222; 99231; 99238; A9270-GY; C9399

== ENCOUNTER 2017-10-05 21:30 | Emergency (ER) | payer OTHER ==
[2017-10-05 22:29] LABS: Hematocrit 39 % (35-47); Hemoglobin 12.8 g/dl (12.0-16.0); Mean Corpuscular HGB Conc 32 g/dl (31-36); Mean Corpuscular Hemoglobin 29 pg (27-31); Mean Corpuscular Volume 88 fL (80-97); Mean Platelet Volume 8 um3 (7.4-10.4); Red Blood Count 4.49 10^6/ul (4.0-5.4); Red Cell Distribution Width 16 % (10.5-15); White Blood Count 10.7 10^3/ul (3.5-10.8)
[2017-10-05 22:36] LABS: Urine Bacteria Absent (Absent); Urine Bilirubin Negative (Negative); Urine Glucose Negative (Negative); Urine Nitrite Negative (Negative)
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
[2017-10-05 22:45] LABS: ALT 13 U/L (7-52); AST 20 U/L (13-39); Albumin 4.6 g/dL (3.2-5.2); Alkaline Phosphatase 66 U/L (34-104); Anion Gap 10 mmol/L (2-11); BUN/Creatinine Ratio 5.4 (8-20); Blood Urea Nitrogen 7 mg/dL (6-24); CO2 Carbon Dioxide 25 mmol/L (22-32); Calcium 9.6 mg/dL (8.6-10.3); Chloride 106 mmol/L (101-111); EGFR African American 63.2 (>60); EGFR Non-African American 49.1 (>60); Globulin 3.3 g/dL (2-4); Glucose 100 mg/dL (70-100); Potassium 4.2 mmol/L (3.5-5.0); Sodium 141 mmol/L (133-145); Total Protein 7.9 g/dL (6.4-8.9)
[2017-10-05 22:46] LABS: Benzodiazepine Urine Screen None Detected (None Detect)
[2017-10-05] MEDS ORDERED: Ibuprofen TAB* 400 MG PO ONE (22:54)
[2017-10-05 23:17] LABS: Acetaminophen < 15 mcg/mL; Alcohol 166 mg/dL (<10); Salicylate < 2.50 mg/dL (<30)
[2017-10-05 23:32] LABS: TSH (Thyroid Stimulating Horm) 3.12 mcIU/mL (0.34-5.60)
[2017-10-06] MEDS ORDERED: Ibuprofen TAB* 400 MG PO ONE (01:55)
[2017-10-06 04:12] VITALS: BP 111/83
== END 2017-10-06 04:13 | disposition home or self-care (01) ==
LOC: ED 21:30
DX: Z00.8 Encounter for other general examination (principal); F32.9 Major depressive disorder, single episode, unspecified; F17.210 Nicotine dependence, cigarettes, uncomplicated
CPT/HCPCS: 36415; 80053; 80307; 80320; 80329; 81003; 81015; 83605; 84443; 84702; 85025; 85610; 85730; 87086; 93005; 99285; A9270-GY; G0480

== ENCOUNTER 2017-10-09 19:07 | Emergency (ER) | payer OTHER ==
[2017-10-09 19:37] VITALS: BP 111/66
[2017-10-09 19:40] LABS: Urine Bilirubin Negative (Negative); Urine Glucose Negative (Negative); Urine Nitrite Negative (Negative)
[2017-10-09 20:09] LABS: Benzodiazepine Urine Screen None Detected (None Detect)
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
== END 2017-10-09 21:08 | disposition home or self-care (01) ==
LOC: ED 19:07
DX: F10.129 Alcohol abuse with intoxication, unspecified (principal); F17.210 Nicotine dependence, cigarettes, uncomplicated
CPT/HCPCS: 36415; 80307; 81003; 99282

== ENCOUNTER 2017-11-26 03:13 | Emergency (ER) | payer OTHER ==
[~2017-11-26 03:13] MED LIST changes: -Buffered Lidocaine 0.9% SYRIN* 5 ML/SYR SYRINGE INTRADERM ONE; -Famotidine TAB* 20 MG PO ONE; +LORazepam INJ* 2 MG/ML 1 ML VIAL ONE; -Metoclopramide TAB* 10 MG PO ONE; -Scopolamine 1.5 mg* PATCH TRANSDERM ONE; -Sodium Citrate/Citric Acid* 15 ML UDC PO ONE; +diPHENhydraMINE IV* 50 MG/ML 1 ml VIAL (BENADRYL) ONE
[2017-11-26] MEDS ORDERED: Tetan/Diph/Pertus SYR(Tdap)* 0.5 ML SYR(BOOSTRIX) use SYR IM ONE (03:41)
[2017-11-26 03:58] LABS: ABS Basophils 0 10^3/ul (0-0.2); ABS Eosinophils 0.1 10^3/ul (0-0.6); ABS Lymphocytes 2.3 10^3/ul (1.0-4.8); ABS Monocytes 0.6 10^3/ul (0-0.8); ABS Neutrophils 5.6 10^3/ul (1.5-7.7); ABS Nucleated RBC 0 10^3/ul; Eosinophil % 0.9 % (0-6); Hematocrit 37 % (35-47); Hemoglobin 12.2 g/dl (12.0-16.0); Lymphocyte % 27.1 % (25-47); Mean Corpuscular HGB Conc 33 g/dl (31-36); Mean Corpuscular Hemoglobin 30 pg (27-31); Mean Corpuscular Volume 90 fL (80-97); Mean Platelet Volume 8 um3 (7.4-10.4); Nucleated Red Blood Cells % 0.1; Platelet Count 317 10^3/ul (150-450); Red Blood Count 4.13 10^6/ul (4.0-5.4); Red Cell Distribution Width 17 % (10.5-15); White Blood Count 8.6 10^3/ul (3.5-10.8)
[2017-11-26 04:00] LABS: Urine Appearance Clear; Urine Blood 1+ (Negative); Urine Color Straw; Urine Ketones Negative (Negative); Urine Protein Negative (Negative); Urine Specific Gravity 1.003 (1.010-1.030); Urine Urobilinogen Negative (Negative)
--- NOTE | 2017-11-26 06:37 | ED ---
Megan Paz Rebecca, scribed for Ghazala Marino MD on 11/26/17 at 0347 . Psychiatric Complaint - HPI Summary HPI Summary: Pt is a 27 y/o F BIBA accompanied by [employer] as a 941 for agitation, combativeness and SIs with a plan. Per EMS, the pt told a doctor on the phone that she drank all the EtOH because nobody showed up to her birthday republican and she threatened suicide by overdosing on Ambien and Klonopin pills. En route, she was given 10 mg Versed. Per EMS and police, she has been agitated and combative, biting, kicking, screaming and spitting at police and EMS. She was picked up from her home, restrained to the [facility] and brought to the ED where she continued to be combative. - History Of Current Complaint Chief Complaint: EDMentalHealth Hx Obtained From: Patient, EMS Hx Last Menstrual Period: 2 MONTHS AGO Onset/Duration: Still Present Character: Angry Aggravating Factor(s): Alcohol Use Alleviating Factor(s): Nothing Associated Signs And Symptoms: Positive: Hostile Related History: Positive For: Prior Psychiatric Issues - Anxiety, depression, PTSD Has Suicidal: Reports: Thoughts, With A Plan Ingestion History: Type/Name Of Drug - EtOH - Allergies/Home Medications Allergies/Adverse Reactions: Allergies Allergy/AdvReac Type Severity Reaction Status Date / Time Diphenhydramine Allergy Difficulty Verified 11/24/17 09:44 [From Benadryl] Breathing/Wheezing Trazodone Allergy Difficulty Verified 11/24/17 09:44 Swallowing Acetaminophen [From Tylenol] AdvReac Nausea And Verified 11/24/17 09:44 Vomiting Seasonal Allergy Congestion Uncoded 11/24/17 09:44 PMH/Surg Hx/FS Hx/Imm Hx Endocrine/Hematology History: Reports: Hx Anemia - using diet to improve anemia Denies: Hx Anticoagulant Therapy, Hx Blood Disorders, Hx Blood Transfusions, Hx Bone Marrow Disease, Hx Diabetes, Hx Systemic Lupus Erythematosus, Hx Sickle Cell Disease, Hx Thyroid Disease, Hx Unexplained Bleeding, Other Endocrine/ Hematological Disorders Cardiovascular History: Reports: Hx Deep Vein Thrombosis, Other Cardiovascular Problems/Disorders - hx syncope, pt states she takes Pindolol for nightmares Denies: Hx Congestive Heart Failure, Hx Hypertension, Hx Pacemaker/ICD Respiratory History: Denies: Hx Asthma GI History: Reports: Hx Gastroesophageal Reflux Disease - controlled with medication History: Reports: Other Problems/Disorders - kidney function is monitored per pt. Denies: Hx Dialysis, Hx Renal Disease Musculoskeletal History: Reports: Hx Arthritis - back, pt was a gymnast, Hx Back Problems - low back pain from gymnastics Denies: Hx Bursitis, Hx Congenital Bone Abnormalities, Hx Fibromyalgia, Hx Gout, Hx Orthopedic Injury, Hx Osteoporosis, Hx Scoliosis, Hx Tendonitis, Other Musculoskeletal History Sensory History: Denies: Hx Contacts or Glasses, Hx Hearing Aid Opthamlomology History: Denies: Hx Contacts or Glasses Neurological History: Denies: Hx Dementia, Hx Developmental Delay, Hx Headaches, Hx Migraine, Hx Nerve Disease, Hx Seizures, Hx Spinal Cord Injury, Hx Transient Ischemic Attacks (TIA), Other Neuro Impairments/Disorders Psychiatric History: Reports: Hx Anxiety - controlled with medication and therapy, Hx Attention Deficit Hyperactivity Disorder, Hx Eating Disorder, Hx Depression - controlled with medication and therapy, Hx Panic Disorder - ANXIETY , Hx Post Traumatic Stress Disorder, Hx Inpatient Treatment, Hx Community Mental Health Tx, Hx Suicide Attempt, Hx Substance Abuse Denies: Hx Schizophrenia, Hx Bipolar Disorder, Hx of Violent Episodes Against Others, Other Psychiatric Issues/Disorders - Surgical History Surgery Procedure, Year, and Place: wisdom teeth. endoscopy 2015. T[facility]ILS-[facility] 05/25/17 Hx Anesthesia Reactions: No - Immunization History Date of Tetanus Vaccine: Unknown Infectious Disease History: Unable to Obtain/Confirm Infectious Disease History: Denies: Hx Clostridium Difficile, Hx Hepatitis, Hx Human Immunodeficiency Virus (HIV), Hx of Known/Suspected MRSA, Hx Shingles, Hx Tuberculosis, History Other Infectious Disease, Traveled Outside the [place] in Last 30 Days - Family History Known Family History: Positive: Hypertension - Social History Alcohol Use: Weekly Alcohol Amount: 3 x week, 3-4 drinks each time Hx Substance Use: Yes Substance Use Type: Reports: None Hx Tobacco Use: Yes Smoking Status (MU): Current Every Day Smoker Type: Cigarettes Amount Used/How Often: 2-3 CIG/DAY Have You Smoked in the Last Year: - states she smokes about three cigarettes per day Review of Systems Negative: Fever Positive: Other - Combative, agitated, hostile, EtOH intoxication, SIs with a plan All Other Systems Reviewed And Are Negative: Yes Physical Exam - Summary Physical Exam Summary: VITAL SIGNS: Reviewed. GENERAL: Patient is a well-developed and nourished female who is lying post- sedation in the stretcher. Patient is not in any acute respiratory distress. HEAD AND FACE: No ecchymosis, hematomas or skull depressions. No sinus tenderness. EYES: PERRLA, EOMI x 2, No injected conjunctiva, no nystagmus. EARS: Hearing grossly intact. Ear canals and tympanic membranes are within normal limits. MOUTH: Oropharynx within normal limits. NECK: Supple, trachea is midline, no adenopathy, no JVD, no carotid bruit, no c- spine tenderness, neck with full ROM. CHEST: Symmetric, no tenderness at palpation LUNGS: Clear to auscultation bilaterally. No wheezing or crackles. CVS: Regular rate and rhythm, S1 and S2 present, no murmurs or gallops appreciated. EXTREMITIES: FROM in all major joints, no edema, no cyanosis or clubbing. NEURO: Post-sedation SKIN: Dry and warm. Multiple superficial abrasions over her upper and lower extremities. Triage Information Reviewed: Yes Vital Signs On Initial Exam: Initial Vitals Temp Pulse Resp BP Pulse Ox 97.1 F 90 20 100/72 99 11/26/17 03:16 11/26/17 03:16 11/26/17 03:16 11/26/17 03:16 11/26/17 03:16 Vital Signs Reviewed: Yes Diagnostics - Vital Signs Vital Signs Temp Pulse Resp BP Pulse Ox 11/26/17 03:16 97.1 F 90 20 100/72 99 - Laboratory Result Diagrams: 11/26/17 03:26 11/26/17 03:26 Lab Statement: Any lab studies that have been ordered have been reviewed, and results considered in the medical decision making process. Course/Dx - Course Assessment/Plan: Pt is a 27 y/o F BIBA accompanied by [employer] as a 941 for agitation , combativeness and SIs with a plan. Per EMS, the pt told a doctor on the phone that she drank all the EtOH because nobody showed up to her birthday republican and she threatened suicide by overdosing on Ambien and Klonopin pills. En route, she was given 10 mg Versed. Per EMS and police, she has been agitated and combative, biting, kicking, screaming and spitting at police and EMS. She was picked up from her home, restrained to the [facility] and brought to the ED where she continued to be combative. Serum alcohol of 280. Bloodwork and UA were done. In the ED course, pt was chemically sedated. She will be signed out to Dr. Leonard, pending disposition. Allergies noted. - Differential Dx/Clinical Impression Provider Diagnosis: Alcohol intoxication, Agitation Discharge - Discharge Plan Condition: Stable Disposition: OTHER Discharge Disposition Comment: Pt will be signed out to Dr. Leonard, pending dispo. Referrals: Derek Torres MD [Primary Care Provider] - The documentation as recorded by the Megan phipps Rebecca accurately reflects the service I personally performed and the decisions made by me, Ghazala Marino MD.
--- NOTE | 2017-11-26 11:36 | PN ---
ED Flex Patient Progress Note Subjective: This is a 27 year-old F who is pending psychiatric evaluation secondary to ____ _ SI . She presented under the influence of ETOH and was combative so was administered chemical restraint (see note for details). Pt offers no complaints at this time- she is still resting comfortably on stretcher. Objective: Vitals: Most recent vital signs documented below. Heart: S1/S2, rrr Lungs: CTA, BREATHING EASILY and pulse ox > 95% on 2L NC AB: + BS, soft, NTTP Assessment: 1) SI Plan: 1) Pending psychiatric eval at 11:30am based on ETOH clearance. Will follow up daily __while in ED___. Vital Signs Temp Pulse Resp BP Pulse Ox 97.1 F 91 16 94/57 100 11/26/17 03:16 11/26/17 11:00 11/26/17 05:41 11/26/17 11:00 11/26/17 11:00 Lab Results - Entire Visit 11/26/17 11/26/17 11/26/17 10:05 03:39 03:39 WBC RBC Hgb Hct MCV MCH MCHC RDW Plt Count MPV Neut % (Auto) Lymph % (Auto) [place] % (Auto) Eos % (Auto) Baso % (Auto) Absolute Neuts (auto) Absolute Lymphs (auto) Absolute Monos (auto) Absolute Eos (auto) Absolute Basos (auto) Absolute Nucleated RBC Nucleated RBC % Sodium Potassium Chloride Carbon Dioxide Anion Gap BUN Creatinine Est GFR ( Amer) Est GFR (Non-Af Amer) BUN/Creatinine Ratio Glucose Calcium Total Bilirubin AST ALT Alkaline Phosphatase Total Protein Albumin Globulin Albumin/Globulin Ratio TSH Beta HCG, Quant Urine Color Straw Urine Appearance Clear Urine pH 5.0 Ur Specific [place] 1.003 L Urine Protein Negative Urine Ketones Negative Urine Blood 1+ H Urine Nitrate Negative Urine Bilirubin Negative Urine Urobilinogen Negative Ur Leukocyte Esterase Negative Urine WBC (Auto) Absent Urine RBC (Auto) Absent Ur Squamous Epith Cells Present H Urine Bacteria Absent Urine Glucose Negative Salicylates Urine Opiates Screen None detected Acetaminophen Ur Barbiturates Screen None detected Ur Phencyclidine Scrn None detected Ur Amphetamines Screen None detected U Benzodiazepines Scrn Presumptive positive H Urine Cocaine Screen None detected U Cannabinoids Screen None detected Serum Alcohol HIV 1&2 Antibody Rapid Nonreactive 11/26/17 11/26/17 03:26 03:26 WBC 8.6 RBC 4.13 Hgb 12.2 Hct 37 MCV 90 MCH 30 MCHC 33 RDW 17 H Plt Count 317 MPV 8 Neut % (Auto) 64.8 Lymph % (Auto) 27.1 [place] % (Auto) 6.8 Eos % (Auto) 0.9 Baso % (Auto) 0.4 Absolute Neuts (auto) 5.6 Absolute Lymphs (auto) 2.3 Absolute Monos (auto) 0.6 Absolute Eos (auto) 0.1 Absolute Basos (auto) 0 Absolute Nucleated RBC 0 Nucleated RBC % 0.1 Sodium 136 Potassium 3.8 Chloride 104 Carbon Dioxide 25 Anion Gap 7 BUN 9 Creatinine 1.00 H Est GFR ( Amer) 84.9 Est GFR (Non-Af Amer) 66.0 BUN/Creatinine Ratio 9.0 Glucose 87 Calcium 9.1 Total Bilirubin 0.30 AST 23 ALT 9 Alkaline Phosphatase 53 Total Protein 7.4 Albumin 4.4 Globulin 3.0 Albumin/Globulin Ratio 1.5 TSH 1.63 Beta HCG, Quant < 0.60 Urine Color Urine Appearance Urine pH Ur Specific [place] Urine Protein Urine Ketones Urine Blood Urine Nitrate Urine Bilirubin Urine Urobilinogen Ur Leukocyte Esterase Urine WBC (Auto) Urine RBC (Auto) Ur Squamous Epith Cells Urine Bacteria Urine Glucose Salicylates < 2.50 Urine Opiates Screen Acetaminophen < 15 Ur Barbiturates Screen Ur Phencyclidine Scrn Ur Amphetamines Screen U Benzodiazepines Scrn Urine Cocaine Screen U Cannabinoids Screen Serum Alcohol 280 H HIV 1&2 Antibody Rapid
[2017-11-26 13:35] VITALS: BP 100/84
--- NOTE | 2017-11-27 17:37 | ED ---
Giancarlo Paz Nikita, scribed for Rashaun Leonard MD on 11/26/17 at 0719 . Progress - Progress Note Progress Note: This patient was signed out from Dr. Marino, pending disposition, awaiting MHE. Re-eval at 0715. The patient is resting comfortably in the bed. Good vital signs. MHE at 1300. The pt was medically cleared by Dr. Marino. Dr. Ruiz from psych reviewed the case and recommended for the pt to be discharged with outpatient follow up with a therapist and psychiatrist. The pt will be discharged with a dx of unspecified mood disorders and borderline personality. The patient is currently stable and is eating and drinking here in the ED. The pt is alert and oriented X3 and is hemodynamically stable. Course/Dx - Diagnoses Provider Diagnoses: Alcohol intoxication, Agitation The documentation as recorded by the Giancarlo phipps Nikita accurately reflects the service I personally performed and the decisions made by , Rashaun Leonard MD.
== END 2017-11-26 13:35 ==
LOC: ED 03:13
DX: F10.129 Alcohol abuse with intoxication, unspecified (principal); R45.1 Restlessness and agitation; D64.9 Anemia, unspecified; K21.9 Gastro-esophageal reflux disease without esophagitis; F17.210 Nicotine dependence, cigarettes, uncomplicated; Y90.8 Blood alcohol level of 240 mg/100 ml or more
CPT/HCPCS: 36415; 80053; 80307; 80320; 80329; 81003; 81015; 84443; 84702; 85025; 86703; 86803; 90471; 90715; 99285; G0480; J1200; J2060

== ENCOUNTER 2017-11-27 15:45 | Emergency (ER) | payer OTHER ==
--- NOTE | 2017-11-27 17:26 | ED ---
HPI Chest Pain - HPI Summary HPI Summary: 27 female presents to ED BIBA after being told her lab work she had done today came back abnormal by PCP. Patient states she has not been feeling good the past 1-2 days. States she has had intermittent diffuse chest pain, nonproductive intermittent cough, fever, and generalized feeling of illness. Patient states she went to PCP and had blood work obtained, had an elevated D dimer. Rest of labs were negative, including flu swab. Showed tachycardia on EKG preformed at pcp. Patient has history of PE that she just recently stopped taking xarelto for 1 month ago. Denies recent travel, prolonged bed rest. Admits to use of cigarettes, last use being 3 days ago. Did just start back up on her OCP recently. No other complaints. Did have nausea, however no vomiting and nausea has since improved. States fever was 100F. Also complains of headache and being tired. States she also wanted to check out her right elbow after falling on ice a few days ago and it being sore/swollen. Wanted an xray to rule out fracture. Admits to abrasion on elbow. No numbness/tingling. No PMHx other than psych. - History of Current Complaint Chief Complaint: EDGeneral Time Seen by Provider: 11/27/17 16:52 Hx Obtained From: Patient Hx Last Menstrual Period: 2 MONTHS AGO Onset/Duration: Started Days Ago, Still Present Timing: Intermittent Initial Severity: Mild Current Severity: None Pain Intensity: 0 Pain Scale Used: 0-10 Numeric Chest Pain Location: Mid Sternal Chest Pain Radiates: No Character: Dull/Aching Aggravating Factor(s): Nothing Alleviating Factor(s): OTC Meds - advil Associated Signs and Symptoms: Positive: Chest Pain, Shortness of Breath - with chest pain, Fever, Nausea - Risk Factors Pulmonary Embolism Risk Factors: Oral Contraceptives, Previous PE, Smoking - Additional Pertinent History Primary Care Physician: [id number] - Allergy/Home Medications Allergies/Adverse Reactions: Allergies Allergy/AdvReac Type Severity Reaction Status Date / Time Trazodone Allergy Difficulty Verified 11/27/17 16:09 Swallowing Acetaminophen [From Tylenol] AdvReac Nausea And Verified 11/27/17 16:09 Vomiting Seasonal Allergy Congestion Uncoded 11/27/17 16:09 PMH/Surg Hx/FS Hx/Imm Hx Endocrine/Hematology History: Reports: Hx Anemia - using diet to improve anemia Denies: Hx Anticoagulant Therapy, Hx Blood Disorders, Hx Blood Transfusions, Hx Bone Marrow Disease, Hx Diabetes, Hx Systemic Lupus Erythematosus, Hx Sickle Cell Disease, Hx Thyroid Disease, Hx Unexplained Bleeding, Other Endocrine/ Hematological Disorders Cardiovascular History: Reports: Hx Deep Vein Thrombosis, Other Cardiovascular Problems/Disorders - hx syncope, pt states she takes Pindolol for nightmares Denies: Hx Congestive Heart Failure, Hx Hypertension, Hx Pacemaker/ICD Respiratory History: Denies: Hx Asthma GI History: Reports: Hx Gastroesophageal Reflux Disease - controlled with medication History: Reports: Other Problems/Disorders - kidney function is monitored per pt. Denies: Hx Dialysis, Hx Renal Disease Musculoskeletal History: Reports: Hx Arthritis - back, pt was a gymnast, Hx Back Problems - low back pain from gymnastics Denies: Hx Bursitis, Hx Congenital Bone Abnormalities, Hx Fibromyalgia, Hx Gout, Hx Orthopedic Injury, Hx Osteoporosis, Hx Scoliosis, Hx Tendonitis, Other Musculoskeletal History Sensory History: Denies: Hx Contacts or Glasses, Hx Hearing Aid Opthamlomology History: Denies: Hx Contacts or Glasses Neurological History: Denies: Hx Dementia, Hx Developmental Delay, Hx Headaches, Hx Migraine, Hx Nerve Disease, Hx Seizures, Hx Spinal Cord Injury, Hx Transient Ischemic Attacks (TIA), Other Neuro Impairments/Disorders Psychiatric History: Reports: Hx Anxiety - controlled with medication and therapy, Hx Attention Deficit Hyperactivity Disorder, Hx Depression - controlled with medication and therapy, Hx Panic Disorder - ANXIETY, Hx Post Traumatic Stress Disorder, Hx Inpatient Treatment, Hx Community Mental Health Tx , Hx Suicide Attempt, Hx Substance Abuse Denies: Hx Eating Disorder, Hx Schizophrenia, Hx Bipolar Disorder, Hx of Violent Episodes Against Others, Other Psychiatric Issues/Disorders - Surgical History Surgery Procedure, Year, and Place: wisdom teeth. endoscopy 2015. TONSILS[facility] 05/25/17 Hx Anesthesia Reactions: No - Immunization History Date of Tetanus Vaccine: Unknown Immunizations Up to Date: Yes Infectious Disease History: No Infectious Disease History: Denies: Hx Clostridium Difficile, Hx Hepatitis, Hx Human Immunodeficiency Virus (HIV), Hx of Known/Suspected MRSA, Hx Shingles, Hx Tuberculosis, History Other Infectious Disease, Traveled Outside the [place] in Last 30 Days - Family History Known Family History: Positive: Unknown - LEVEL 5 CAVEAT secondary to OD and AMS , Hypertension - Social History Alcohol Use: Weekly Alcohol Amount: 3 x week, 3-4 drinks each time Hx Substance Use: Yes Substance Use Type: Reports: None Hx Tobacco Use: Yes Smoking Status (MU): Current Every Day Smoker Type: Cigarettes Amount Used/How Often: 2-3 CIG/DAY Have You Smoked in the Last Year: - states she smokes about three cigarettes per day Review of Systems Positive: Fever, Fatigue ENT: Negative Positive: Chest Pain Positive: Cough Positive: Nausea Positive: Headache All Other Systems Reviewed And Are Negative: Yes Physical Exam Triage Information Reviewed: Yes Vital Signs On Initial Exam: Initial Vitals Temp Pulse Resp BP Pulse Ox 98.8 F 81 18 114/68 97 11/27/17 16:00 11/27/17 16:00 11/27/17 16:00 11/27/17 16:00 11/27/17 16:00 Vital Signs Reviewed: Yes Appearance: Positive: Well-Appearing, No Pain Distress, Well-Nourished Skin: Positive: Warm, Skin Color Reflects Adequate Perfusion, Dry. Negative: Cold, Numb, Cyanosis @, Pale Head/Face: Positive: Normal Head/Face Inspection Eyes: Positive: Conjunctiva Clear ENT: Positive: Hearing grossly normal Neck: Positive: Supple Respiratory/Lung Sounds: Positive: Clear to Auscultation, Breath Sounds Present. Negative: Rales, Rhonchi, Wheezes Cardiovascular: Positive: Normal, RRR, Pulses are Symmetrical in both Upper and Lower Extremities, Tachycardia. Negative: Murmur, Rub Abdomen Description: Positive: Nontender, Soft Bowel Sounds: Positive: Present Musculoskeletal: Positive: Normal, Strength/ROM Intact Neurological: Positive: Normal, Sensory/Motor Intact, Alert, Oriented to Person Place, Time Diagnostics - Vital Signs Vital Signs Temp Pulse Resp BP Pulse Ox 11/27/17 17:00 96 104/58 97 11/27/17 16:30 103 111/65 98 11/27/17 16:03 108 99 11/27/17 16:01 114/68 11/27/17 16:00 98.8 F 81 18 114/68 97 - Laboratory Lab Statement: Any lab studies that have been ordered have been reviewed, and results considered in the medical decision making process. - Radiology right elbow Xray Interpretation: No Acute Changes - 2 views of the right elbow demonstrates no definite fracture. No joint effusion is noted. If symptoms persist further imaging could BE performed. Radiology Interpretation Completed By: Radiologist - and myself - CT CTA chest CT Interpretation: No Acute Changes - No evidence of pulmonary embolus is noted. CT Interpretation Completed By: Radiologist - and myself - EKG EKG Cardiac Rate: NL EKG Rhythm: Sinus Rhythm ST Segment: Normal Ectopy: None EKG Interpretation: NSR, tachycardia, no stemi EKG Comparison: No Significant Change Re-Evaluation - Re-Evaluation First Eval Re-Evaluation Time: 18:30 Change: Unchanged - patient still feeling fine without chest pain. just tired and feels like she has a cold. was on her way out upon re-eval to update on imaging results. patient wanted to sign out ama and refused further testing at this time Chest Pain Course/Dx - Course Course Of Treatment: labs were not repeated as were just obtained earlier today. patient is comfortable and not currently in pain. slight tachycardia at times, otherwise afebrile and without pain. normal vitals. oxygen 97%. comfortable throughout ED stay. D dimer was 868 today. She has been having normal d dimer's until now. Recently began back on OCP. Does use cigarettes. CTA obtained and negative. Right elbow xray obtained due to other complaint of pain from fall and negative for fracture appears to be a contusion. EKG obtained and showed sinus tachy at 99bpm. as I went to inform patient of results , she was walking out and ripped her IV out on her own. stoppped patient and encouraged to stay for further testing, such as DVT however patient refused and wanted to sign out AMA. Updated on results of CTA and elbow xray. Patient agrees and understands risks as it was thouroughly explained. left AMA. - Chest Pain Differential Diagnosis/HQI/PQRI: Chest Wall, Pulmonary Embolism, Other: - DVT, chest pain, ACS, elevated d dimer - Diagnoses Provider Diagnoses: Chest pain, Tachycardia, Viral illness, Elevated d-dimer, Contusion of elbow, right Discharge - Discharge Plan Condition: Stable Disposition: AGAINST MEDICAL ADVICE Referrals: Derek Torres MD [Primary Care Provider] -
[2017-11-27] MEDS ORDERED: Iohexol 350* (CONTRAST) 500 ML MDV IV ONE (17:42)
--- NOTE | 2017-11-27 18:20 | RAD ---
Indication: Elevated d-dimer, history of pulmonary embolus. Contrast: Administered 59.2 ml of OMNIPAQUE 350 mg/ml CTA of the chest was performed after IV contrast administration. Coronal and sagittal reconstructed images were obtained. The pulmonary arterial tree is well opacified. The aorta shows no evidence of aortic dissection or aneurysmal dilatation. There are no filling defects present to suggest pulmonary embolus. There is no mediastinal or hilar adenopathy. The trachea and major bronchi appear patent. No pleural fluid, nodules or masses are noted. The heart is of normal size without evidence of pericardial effusion. The visualized abdominal organs are unremarkable. IMPRESSION: No evidence of pulmonary embolus is noted.
--- NOTE | 2017-11-27 18:25 | RAD ---
Indication: Right elbow pain. 2 views of the right elbow demonstrates no definite fracture. No joint effusion is noted. If symptoms persist further imaging could BE performed. IMPRESSION: No definite fracture is identified.
[2017-11-27 18:40] VITALS: BP 101/67
== END 2017-11-27 18:39 | disposition left against medical advice (07) ==
LOC: ED 15:45
DX: R07.89 Other chest pain (principal); R00.0 Tachycardia, unspecified; B34.9 Viral infection, unspecified; R79.1 Abnormal coagulation profile; R06.02 Shortness of breath; R50.9 Fever, unspecified; R53.83 Other fatigue; S50.01XA Contusion of right elbow, initial encounter; W00.0XXA Fall on same level due to ice and snow, initial encounter; Y93.9 Activity, unspecified; Y92.9 Unspecified place or not applicable; D64.9 Anemia, unspecified; Z86.718 Personal history of other venous thrombosis and embolism; K21.9 Gastro-esophageal reflux disease without esophagitis; F90.9 Attention-deficit hyperactivity disorder, unspecified type; F32.9 Major depressive disorder, single episode, unspecified; F41.0 Panic disorder [episodic paroxysmal anxiety]; Z88.6 Allergy status to analgesic agent; F17.210 Nicotine dependence, cigarettes, uncomplicated
CPT/HCPCS: 71275; 93005; 99283; Q9967

== ENCOUNTER 2017-12-10 23:16 | Emergency (ER) | payer OTHER ==
[2017-12-10] MEDS ORDERED: diPHENhydraMINE IV* 50 MG/ML 1 ml VIAL (BENADRYL) ONE (23:22)
[2017-12-10] MEDS ORDERED: Ziprasidone IM INJ* 20 MG/ML VIAL ONE (23:22)
[2017-12-10] MEDS ORDERED: LORazepam INJ* 2 MG/ML 1 ML VIAL ONE (23:22)
[2017-12-11 00:39] LABS: ABS Basophils 0.2 10^3/ul (0-0.2); ABS Eosinophils 0 10^3/ul (0-0.6); ABS Lymphocytes 1.3 10^3/ul (1.0-4.8); ABS Monocytes 0.2 10^3/ul (0-0.8); ABS Neutrophils 4.9 10^3/ul (1.5-7.7); ABS Nucleated RBC 0 10^3/ul; Eosinophil % 0.4 % (0-6); Hematocrit 32 % (35-47); Hemoglobin 10.9 g/dl (12.0-16.0); Lymphocyte % 19.5 % (25-47); Mean Corpuscular HGB Conc 34 g/dl (31-36); Mean Corpuscular Hemoglobin 30 pg (27-31); Mean Corpuscular Volume 88 fL (80-97); Mean Platelet Volume 8 um3 (7.4-10.4); Nucleated Red Blood Cells % 0; Platelet Count 359 10^3/ul (150-450); Red Blood Count 3.67 10^6/ul (4.0-5.4); Red Cell Distribution Width 15 % (10.5-15); White Blood Count 6.7 10^3/ul (3.5-10.8)
[2017-12-11 10:37] LABS: Urine Appearance Clear; Urine Blood Negative (Negative); Urine Color Straw; Urine Ketones Negative (Negative); Urine Protein Negative (Negative); Urine Specific Gravity 1.006 (1.010-1.030); Urine Urobilinogen Negative (Negative)
--- NOTE | 2017-12-11 12:46 | PN ---
ED Flex Patient Progress Note Date of Service: 12/11/17 Subjective: This is a 27 year-old F who is pending mental health evaluation secondary to ETOH abuse. Pt offers no complaints at this time. She denies any tremors or anxiety. Objective: Vitals: Most recent vital signs documented below. General NAD, Alert and oriented x3. Heart: rrr at 90 bpm Lungs: CTA or with rales, rhonchi, wheezing abd: soft nontender Laboratory: Current laboratory results documented below. Assessment: ETOH intoxication Plan: Pending psychiatric to evaluate condition: stable Vital Signs Temp Pulse Resp BP Pulse Ox 98.1 F 89 18 107/60 100 12/10/17 23:38 12/11/17 08:30 12/10/17 23:38 12/11/17 08:42 12/11/17 08:30 Lab Results - Entire Visit 12/11/17 12/11/17 12/11/17 09:19 09:19 00:24 WBC 6.7 RBC 3.67 L Hgb 10.9 L Hct 32 L MCV 88 MCH 30 MCHC 34 RDW 15 Plt Count 359 MPV 8 Neut % (Auto) 73.4 Lymph % (Auto) 19.5 L [place] % (Auto) 3.4 Eos % (Auto) 0.4 Baso % (Auto) 3.3 H Absolute Neuts (auto) 4.9 Absolute Lymphs (auto) 1.3 Absolute Monos (auto) 0.2 Absolute Eos (auto) 0 Absolute Basos (auto) 0.2 Absolute Nucleated RBC 0 Nucleated RBC % 0 Sodium Potassium Chloride Carbon Dioxide Anion Gap BUN Creatinine Est GFR ( Amer) Est GFR (Non-Af Amer) BUN/Creatinine Ratio Glucose Calcium Total Bilirubin AST ALT Alkaline Phosphatase Total Protein Albumin Globulin Albumin/Globulin Ratio TSH Beta HCG, Quant Urine Color Straw Urine Appearance Clear Urine pH 6.0 Ur Specific [place] 1.006 L Urine Protein Negative Urine Ketones Negative Urine Blood Negative Urine Nitrate Negative Urine Bilirubin Negative Urine Urobilinogen Negative Ur Leukocyte Esterase Trace H Urine WBC (Auto) Trace(0-5/hpf) Urine RBC (Auto) Trace(0-2/hpf) Ur Squamous Epith Cells Present H Urine Bacteria 1+ H Urine Glucose Negative Salicylates Urine Opiates Screen None detected Acetaminophen Ur Barbiturates Screen None detected Ur Phencyclidine Scrn None detected Ur Amphetamines Screen None detected U Benzodiazepines Scrn Presumptive positive H Urine Cocaine Screen None detected U Cannabinoids Screen None detected Serum Alcohol 12/11/17 00:24 WBC RBC Hgb Hct MCV MCH MCHC RDW Plt Count MPV Neut % (Auto) Lymph % (Auto) [place] % (Auto) Eos % (Auto) Baso % (Auto) Absolute Neuts (auto) Absolute Lymphs (auto) Absolute Monos (auto) Absolute Eos (auto) Absolute Basos (auto) Absolute Nucleated RBC Nucleated RBC % Sodium 137 Potassium 3.7 Chloride 106 Carbon Dioxide 22 Anion Gap 9 BUN 9 Creatinine 1.00 H Est GFR ( Amer) 84.9 Est GFR (Non-Af Amer) 66.0 BUN/Creatinine Ratio 9.0 Glucose 95 Calcium 8.2 L Total Bilirubin 0.40 AST 15 ALT 8 Alkaline Phosphatase 39 Total Protein 6.7 Albumin 3.9 Globulin 2.8 Albumin/Globulin Ratio 1.4 TSH 0.74 Beta HCG, Quant < 0.60 Urine Color Urine Appearance Urine pH Ur Specific [place] Urine Protein Urine Ketones Urine Blood Urine Nitrate Urine Bilirubin Urine Urobilinogen Ur Leukocyte Esterase Urine WBC (Auto) Urine RBC (Auto) Ur Squamous Epith Cells Urine Bacteria Urine Glucose Salicylates < 2.50 Urine Opiates Screen Acetaminophen < 15 Ur Barbiturates Screen Ur Phencyclidine Scrn Ur Amphetamines Screen U Benzodiazepines Scrn Urine Cocaine Screen U Cannabinoids Screen Serum Alcohol 245 H
[2017-12-11 21:03] VITALS: BP 123/73
--- NOTE | 2017-12-12 09:36 | ED ---
ILloyd Angela, scribed for Rashaun Leonard MD on 12/11/17 at 1357 . Progress - Progress Note Progress Note: This pt was signed out by Dr. Marino, pending disposition, awaiting alcohol metabolism and MHE. At 07:50 - pt is resting comfortably in the stretcher. Pt is medically cleared at 09:00 and is awaiting for MHE. At shift change, 19:00, pt is still waiting for MHE. Therefore pt will be signed out to Dr. Marino, awaiting MHE. Pt is hemodynamically stable, alert and oriented x3. Condition: Stable Disposition: Other - signed out to Dr. Marino, pending dispo, awaiting MHE. Re-Evaluation - Re-Evaluation First Eval Re-Evaluation Time: 07:50 Comment: Pt is currently resting comfortably in the stretcher. Course/Dx - Diagnoses Provider Diagnoses: Alcohol intoxication The documentation as recorded by the Lloyd phipps Angela accurately reflects the service I personally performed and the decisions made by me, Rashaun Leonard MD.
--- NOTE | 2017-12-12 21:06 | ED ---
Erica Paz Edward, scribed for Ghazala Marino MD on 12/11/17 at 0204 . Substance Abuse/Use - HPI Summary HPI Summary: 27 y/o female BIBA c/o intoxication. Seeking [facility]. Pt is agitated in the ED course. Given Geodon, benadryl and ativan which was effective. Level 5 caveat due to EtOH abuse. - History Of Current Complaint Chief Complaint: [facility]ental[facility] Stated Complaint: 2208 Time Seen by Provider: 12/10/17 23:32 Hx From Patient Unobtainable Due To: Other - intoxication Hx Last Menstrual Period: 2 MONTHS AGO - Allergies/Home Medications Allergies/Adverse Reactions: Allergies Allergy/AdvReac Type Severity Reaction Status Date / Time MS Trazodone [Trazodone] Allergy Difficulty Verified 12/10/17 23:41 Swallowing MS Acetaminophen AdvReac Nausea And Verified 12/10/17 23:41 [From Tylenol] Vomiting Seasonal Allergy Congestion Uncoded 12/10/17 23:41 PMH/Surg Hx/FS Hx/Imm Hx Previously Healthy: No Endocrine/Hematology History: Reports: Hx Anemia - using diet to improve anemia Denies: Hx Anticoagulant Therapy, Hx Blood Disorders, Hx Blood Transfusions, Hx Bone Marrow Disease, Hx Diabetes, Hx Systemic Lupus Erythematosus, Hx Sickle Cell Disease, Hx Thyroid Disease, Hx Unexplained Bleeding, Other Endocrine/ Hematological Disorders Cardiovascular History: Reports: Hx Deep Vein Thrombosis, Other Cardiovascular Problems/Disorders - hx syncope, pt states she takes Pindolol for nightmares Denies: Hx Congestive Heart Failure, Hx Hypertension, Hx Pacemaker/ICD Respiratory History: Denies: Hx Asthma GI History: Reports: Hx Gastroesophageal Reflux Disease - controlled with medication History: Reports: Other Problems/Disorders - kidney function is monitored per pt. Denies: Hx Dialysis, Hx Renal Disease Musculoskeletal History: Reports: Hx Arthritis - back, pt was a gymnast, Hx Back Problems - low back pain from gymnastics Denies: Hx Bursitis, Hx Congenital Bone Abnormalities, Hx Fibromyalgia, Hx Gout, Hx Orthopedic Injury, Hx Osteoporosis, Hx Scoliosis, Hx Tendonitis, Other Musculoskeletal History Sensory History: Denies: Hx Contacts or Glasses, Hx Hearing Aid Opthamlomology History: Denies: Hx Contacts or Glasses Neurological History: Denies: Hx Dementia, Hx Developmental Delay, Hx Headaches, Hx Migraine, Hx Nerve Disease, Hx Seizures, Hx Spinal Cord Injury, Hx Transient Ischemic Attacks (TIA), Other Neuro Impairments/Disorders Psychiatric History: Reports: Hx Anxiety - controlled with medication and therapy, Hx Attention Deficit Hyperactivity Disorder, Hx Depression - controlled with medication and therapy, Hx Panic Disorder - ANXIETY, Hx Post Traumatic Stress Disorder, Hx Inpatient Treatment, Hx Community Mental Health Tx , Hx Suicide Attempt, Hx Substance Abuse Denies: Hx Eating Disorder, Hx Schizophrenia, Hx Bipolar Disorder, Hx of Violent Episodes Against Others, Other Psychiatric Issues/Disorders - Surgical History Surgery Procedure, Year, and Place: wisdom teeth. endoscopy 2015. [facility] [place]/17 Hx Anesthesia Reactions: No - Immunization History Date of Tetanus Vaccine: unk Date of Influenza Vaccine: unk Infectious Disease History: Unable to Obtain/Confirm Infectious Disease History: Denies: Hx Clostridium Difficile, Hx Hepatitis, Hx Human Immunodeficiency Virus (HIV), Hx of Known/Suspected MRSA, Hx Shingles, Hx Tuberculosis, History Other Infectious Disease, Traveled Outside the [place] in Last 30 Days - Family History Known Family History: Positive: Unknown - LEVEL 5 CAVEAT secondary to OD and AMS , Hypertension - Social History Alcohol Use: Weekly Alcohol Amount: 3 x week, 3-4 drinks each time Hx Substance Use: Yes Substance Use Type: Reports: None Hx Tobacco Use: Yes Smoking Status (MU): Current Every Day Smoker Type: Cigarettes Amount Used/How Often: 2-3 CIG/DAY Have You Smoked in the Last Year: - states she smokes about three cigarettes per day Review of Systems - ROS Summary Review of Systems Summary: Level 5 caveat due to EtOH abuse. All Other Systems Reviewed And Are Negative: No Physical Exam - Summary Physical Exam Summary: Level 5 caveat due to EtOH abuse. Pt is agitated. Pt is heavily sedated at this time, but arousable to painful stimuli. Triage Information Reviewed: Yes Vital Signs On Initial Exam: Initial Vitals Temp Pulse Resp BP Pulse Ox 98.1 F 93 18 100/61 97 12/10/17 23:38 12/10/17 23:38 12/10/17 23:38 12/10/17 23:38 12/10/17 23:38 Vital Signs Reviewed: Yes Diagnostics - Vital Signs Vital Signs Temp Pulse Resp BP Pulse Ox 12/11/17 00:30 87 95/59 100 12/11/17 00:01 91 93/54 97 12/11/17 00:00 91 97 12/10/17 23:49 92 97 12/10/17 23:48 96/53 12/10/17 23:38 98.1 F 93 18 100/61 97 - Laboratory Lab Results: Lab Results 12/11/17 12/11/17 Range/Units 00:24 00:24 WBC 6.7 (3.5-10.8) 10^3/ul RBC 3.67 L (4.0-5.4) 10^6/ul Hgb 10.9 L (12.0-16.0) g/dl Hct 32 L (35-47) % MCV 88 (80-97) fL MCH 30 (27-31) pg MCHC 34 (31-36) g/dl RDW 15 (10.5-15) % Plt Count 359 (150-450) 10^3/ul MPV 8 (7.4-10.4) um3 Neut % (Auto) 73.4 (38-83) % Lymph % (Auto) 19.5 L (25-47) % Bath % (Auto) 3.4 (1-9) % Eos % (Auto) 0.4 (0-6) % Baso % (Auto) 3.3 H (0-2) % Absolute Neuts (auto) 4.9 (1.5-7.7) 10^3/ul Absolute Lymphs (auto) 1.3 (1.0-4.8) 10^3/ul Absolute Monos (auto) 0.2 (0-0.8) 10^3/ul Absolute Eos (auto) 0 (0-0.6) 10^3/ul Absolute Basos (auto) 0.2 (0-0.2) 10^3/ul Absolute Nucleated RBC 0 10^3/ul Nucleated RBC % 0 Sodium 137 (133-145) mmol/L Potassium 3.7 (3.5-5.0) mmol/L Chloride 106 (101-111) mmol/L Carbon Dioxide 22 (22-32) mmol/L Anion Gap 9 (2-11) mmol/L BUN 9 (6-24) mg/dL Creatinine 1.00 H (0.51-0.95) mg/dL Est GFR ( Amer) 84.9 (>60) Est GFR (Non-Af Amer) 66.0 (>60) BUN/Creatinine Ratio 9.0 (8-20) Glucose 95 (70-100) mg/dL Calcium 8.2 L (8.6-10.3) mg/dL Total Bilirubin 0.40 (0.2-1.0) mg/dL AST 15 (13-39) U/L ALT 8 (7-52) U/L Alkaline Phosphatase 39 (34-104) U/L Total Protein 6.7 (6.4-8.9) g/dL Albumin 3.9 (3.2-5.2) g/dL Globulin 2.8 (2-4) g/dL Albumin/Globulin Ratio 1.4 (1-3) TSH 0.74 (0.34-5.60) mcIU/mL Beta HCG, Quant < 0.60 mIU/mL Salicylates < 2.50 (<30) mg/dL Acetaminophen < 15 mcg/mL Serum Alcohol 245 H (<10) mg/dL Result Diagrams: 12/11/17 00:24 12/11/17 00:24 Lab Statement: Any lab studies that have been ordered have been reviewed, and results considered in the medical decision making process. Re-Evaluation - Re-Evaluation First Eval Re-Evaluation Time: 07:50 Comment: Pt is currently resting comfortably in the stretcher. Course/Dx - Course Assessment/Plan: Pt is agitated in the ED course. Given Geodon, benadryl and ativan which was effective. - Diagnoses Provider Diagnoses: Alcohol intoxication Discharge - Discharge Plan Condition: Stable Disposition: HOME Patient Education Materials: Anorexia Nervosa (ED), Generalized Anxiety Disorder (ED), Night Terrors (ED) Referrals: Derek Torres MD [Primary Care Provider] - The documentation as recorded by the Erica phipps Edward accurately reflects the service I personally performed and the decisions made by me, Ghazala Marino MD.
== END 2017-12-11 20:40 | disposition home or self-care (01) ==
LOC: ED 23:16
DX: F10.129 Alcohol abuse with intoxication, unspecified (principal); Y90.8 Blood alcohol level of 240 mg/100 ml or more
CPT/HCPCS: 36415; 80053; 80307; 80320; 80329; 81003; 81015; 84443; 84702; 85025; 87086; 96372; 99285; G0480; J1200; J2060; J3486

== ENCOUNTER 2018-03-02 22:11 | Emergency (ER) | payer OTHER ==
[2018-03-02] MEDS ORDERED: NS 0.9% 1000 ML* 1,000 ML IV ONE (22:19)
[2018-03-02 22:50] LABS: ABS Basophils 0 10^3/ul (0-0.2); ABS Eosinophils 0 10^3/ul (0-0.6); ABS Monocytes 0.2 10^3/ul (0-0.8); ABS Nucleated RBC 0 10^3/ul; Eosinophil % 0.7 % (0-6); Hematocrit 38 % (35-47); Hemoglobin 12.8 g/dl (12.0-16.0); Mean Corpuscular HGB Conc 34 g/dl (31-36); Mean Corpuscular Hemoglobin 30 pg (27-31); Mean Corpuscular Volume 88 fL (80-97); Mean Platelet Volume 7.6 um3 (7.4-10.4); Nucleated Red Blood Cells % 0; Platelet Count 354 10^3/ul (150-450); Red Blood Count 4.27 10^6/ul (4.0-5.4); Red Cell Distribution Width 14 % (10.5-15); White Blood Count 6.4 10^3/ul (3.5-10.8)
[2018-03-02 22:58] LABS: INR 0.85 (0.77-1.02)
[2018-03-02 23:07] LABS: EGFR Non-African American 63.1 (>60)
[2018-03-02 23:24] VITALS: BP 122/71
--- NOTE | 2018-03-03 08:25 | RAD ---
Indication: Syncope. Comparison: November 27, 2017 CT. Technique: Upright chest radiograph 2236 hours Report: Clear lungs and pleural spaces. Negative for pneumothorax. The heart, pulmonary vasculature, and mediastinal contours are unremarkable. Unremarkable osseous structures and soft tissue contours. IMPRESSION: Negative exam.
--- NOTE | 2018-03-03 08:55 | ED ---
Gilberto Paz Tiffany, scribed for Virginia Velasquez MD on 03/02/18 at 2236 . Syncope/Near Syncope - HPI Summary HPI Summary: The patient is a 27 year old female BIBA s/p near syncopal episode witnessed by friend at 22:00 today. Symptoms aggravated by nothing. Symptoms alleviated by nothing. Denies SI and HI. Hx of eating disorder. Patient is currently seeking treatment. In the past 2 days, eating disorder has worsened. Patient took 6 laxatives today, 12 laxatives yesterday. Had barb this evening but vomited it up in fear of calories she'd gain. Had mono test done today because she reports feeling tired all the time, "can't stay awake for more than 6 hours." Per EMS, patient was lethargic in the field, was able to walk with assistance. Hx of suicide attempts. Has not cut herself in a month. - History Of Current Complaint Chief Complaint: EDSyncope Time Seen by Provider: 03/02/18 22:19 Hx Obtained From: Patient, EMS Onset/Duration: Sudden Onset, Lasting Minutes - At 22:00 today, Still Present Timing: Constant Context: Witnessed - With friend Associated Head Trauma: No Aggravating Factor(s): Nothing Alleviating Factor(s): Nothing Associated Signs And Symptoms: Negative - SI, HI, Weakness - generalized, Other - Lethargic Frequency: Episodes x___ - 1, Episodes Lasting ____ (in Mins/Days/Weeks/Years) - minutes - Allergies/Home Medications Allergies/Adverse Reactions: Allergies Allergy/AdvReac Type Severity Reaction Status Date / Time MS Trazodone [Trazodone] Allergy Difficulty Verified 12/10/17 23:41 Swallowing MS Acetaminophen AdvReac Nausea And Verified 12/10/17 23:41 [From Tylenol] Vomiting Seasonal Allergy Congestion Uncoded 12/10/17 23:41 PMH/Surg Hx/FS Hx/Imm Hx Previously Healthy: No - eating disorder Endocrine/Hematology History: Reports: Hx Anemia - using diet to improve anemia , Other Endocrine/Hematological Disorders - Low magnesium Denies: Hx Anticoagulant Therapy, Hx Blood Disorders, Hx Blood Transfusions, Hx Bone Marrow Disease, Hx Diabetes, Hx Systemic Lupus Erythematosus, Hx Sickle Cell Disease, Hx Thyroid Disease, Hx Unexplained Bleeding Cardiovascular History: Reports: Hx Deep Vein Thrombosis, Other Cardiovascular Problems/Disorders - hx syncope, pt states she takes Pindolol for nightmares Denies: Hx Congestive Heart Failure, Hx Hypertension, Hx Pacemaker/ICD Respiratory History: Denies: Hx Asthma GI History: Reports: Hx Gastroesophageal Reflux Disease - controlled with medication History: Reports: Other Problems/Disorders - kidney function is monitored per pt. Denies: Hx Dialysis, Hx Renal Disease Musculoskeletal History: Reports: Hx Back Problems - low back pain from gymnastics Denies: Hx Bursitis, Hx Congenital Bone Abnormalities, Hx Fibromyalgia, Hx Gout, Hx Orthopedic Injury, Hx Osteoporosis, Hx Scoliosis, Hx Tendonitis, Other Musculoskeletal History Sensory History: Denies: Hx Contacts or Glasses, Hx Hearing Aid Opthamlomology History: Denies: Hx Contacts or Glasses Neurological History: Denies: Hx Dementia, Hx Developmental Delay, Hx Headaches, Hx Migraine, Hx Nerve Disease, Hx Seizures, Hx Spinal Cord Injury, Hx Transient Ischemic Attacks (TIA), Other Neuro Impairments/Disorders Psychiatric History: Reports: Hx Anxiety - controlled with medication and therapy, Hx Attention Deficit Hyperactivity Disorder, Hx Eating Disorder, Hx Depression - controlled with medication and therapy, Hx Panic Disorder - ANXIETY , Hx Post Traumatic Stress Disorder, Hx Inpatient Treatment, Hx Community Mental Health Tx, Hx Suicide Attempt, Hx Substance Abuse Denies: Hx Schizophrenia, Hx Bipolar Disorder, Hx of Violent Episodes Against Others, Other Psychiatric Issues/Disorders - Surgical History Surgery Procedure, Year, and Place: wisdom teeth. endoscopy 2015. [facility] [place]/17 Hx Anesthesia Reactions: No - Immunization History Date of Tetanus Vaccine: unk Date of Influenza Vaccine: unk Infectious Disease History: No Infectious Disease History: Denies: Hx Clostridium Difficile, Hx Hepatitis, Hx Human Immunodeficiency Virus (HIV), Hx of Known/Suspected MRSA, Hx Shingles, Hx Tuberculosis, History Other Infectious Disease, Traveled Outside the [place] in Last 30 Days - Family History Known Family History: Positive: Hypertension, Other - No suicide, no cancer Negative: Diabetes - Social History Alcohol Use: Weekly Alcohol Amount: 3 x week, 3-4 drinks each time Hx Substance Use: Yes Substance Use Type: Reports: None Hx Tobacco Use: Yes Smoking Status (MU): Current Every Day Smoker Type: Cigarettes Amount Used/How Often: 2-3 CIG/DAY Have You Smoked in the Last Year: - states she smokes about three cigarettes per day Review of Systems Positive: Fatigue Cardiovascular: Negative Respiratory: Negative Gastrointestinal: Negative Skin: Negative Neurological: Other - Near syncopal episode, lethargic Positive: Other - NEGATIVE: SI, HI All Other Systems Reviewed And Are Negative: Yes Physical Exam - Summary Physical Exam Summary: Appearance: well-appearing, no pain distress. Patient is thin. Has purple hair extensions. Skin: Warm, color reflects adequate perfusion Head: Normal Head/Face inspection, atraumatic Eyes: Conjunctiva clear, PERRL EOMI ENT: Normal inspection, oral mucosa moist Neck: Supple, no nodes, no JVD, no spinal tenderness Respiratory: Lungs clear, Normal breath sounds, no respiratory distress Cardio: RRR, No murmur, pulses normal, brisk capillary refill Abdomen: soft, nontender, thin, no masses Bowel sounds: present Musculoskeletal: Strength Intact/ ROM intact. No calf tenderness. No edema. Psychological: avoids eye contact, cooperative Neuro: Alert, facial symmetry, muscle tone normal, no tremors, moves all extremities well, sensation intact. no focal deficit Triage Information Reviewed: Yes Vital Signs On Initial Exam: Initial Vitals Temp Pulse Resp BP Pulse Ox 97.6 F 103 16 117/71 99 03/02/18 22:26 03/02/18 22:26 03/02/18 22:26 03/02/18 22:26 03/02/18 22:26 Vital Signs Reviewed: Yes Diagnostics - Vital Signs Vital Signs Temp Pulse Resp BP Pulse Ox 03/02/18 22:26 97.6 F 103 16 117/71 99 - Laboratory Lab Results: Lab Results 03/02/18 03/02/18 03/02/18 Range/Units 22:38 22:38 22:38 WBC 6.4 (3.5-10.8) 10^3/ul RBC 4.27 (4.0-5.4) 10^6/ul Hgb 12.8 (12.0-16.0) g/dl Hct 38 (35-47) % MCV 88 (80-97) fL MCH 30 (27-31) pg MCHC 34 (31-36) g/dl RDW 14 (10.5-15) % Plt Count 354 (150-450) 10^3/ul MPV 7.6 (7.4-10.4) um3 Neut % (Auto) 63.4 (38-83) % Lymph % (Auto) 32.0 (25-47) % Bay % (Auto) 3.6 (0-7) % Eos % (Auto) 0.7 (0-6) % Baso % (Auto) 0.3 (0-2) % Absolute Neuts (auto) 4.0 (1.5-7.7) 10^3/ul Absolute Lymphs (auto) 2.0 (1.0-4.8) 10^3/ul Absolute Monos (auto) 0.2 (0-0.8) 10^3/ul Absolute Eos (auto) 0 (0-0.6) 10^3/ul Absolute Basos (auto) 0 (0-0.2) 10^3/ul Absolute Nucleated RBC 0 10^3/ul Nucleated RBC % 0 INR (Anticoag Therapy) 0.85 (0.77-1.02) APTT 27.3 (26.0-36.3) seconds D-Dimer, Quantitative < 200 (Less Than 230) ng/mL Sodium 136 L (139-145) mmol/L Potassium 3.6 (3.5-5.0) mmol/L Chloride 103 (101-111) mmol/L Carbon Dioxide 25 (22-32) mmol/L Anion Gap 8 (2-11) mmol/L BUN 14 (6-24) mg/dL Creatinine 1.04 H (0.51-0.95) mg/dL Est GFR ( Amer) 81.1 (>60) Est GFR (Non-Af Amer) 63.1 (>60) BUN/Creatinine Ratio 13.5 (8-20) Glucose 92 (70-100) mg/dL Lactic Acid (0.5-2.0) mmol/L Calcium 8.5 L (8.6-10.3) mg/dL Magnesium 1.7 L (1.9-2.7) mg/dL Total Bilirubin 0.20 (0.2-1.0) mg/dL AST 10 L (13-39) U/L ALT 6 L (7-52) U/L Alkaline Phosphatase 46 (34-104) U/L Ammonia (16-53) mcmol/L Total Creatine Kinase 81 (10-223) U/L Troponin I 0.00 (<0.04) ng/mL B-Natriuretic Peptide ( - 100) pg/mL Total Protein 6.9 (6.4-8.9) g/dL Albumin 3.6 (3.2-5.2) g/dL Globulin 3.3 (2-4) g/dL Albumin/Globulin Ratio 1.1 (1-3) TSH 1.77 (0.34-5.60) mcIU/mL Serum Alcohol 123 H (<10) mg/dL 03/02/18 03/02/18 Range/Units 22:38 22:38 WBC (3.5-10.8) 10^3/ul RBC (4.0-5.4) 10^6/ul Hgb (12.0-16.0) g/dl Hct (35-47) % MCV (80-97) fL MCH (27-31) pg MCHC (31-36) g/dl RDW (10.5-15) % Plt Count (150-450) 10^3/ul MPV (7.4-10.4) um3 Neut % (Auto) (38-83) % Lymph % (Auto) (25-47) % Bay % (Auto) (0-7) % Eos % (Auto) (0-6) % Baso % (Auto) (0-2) % Absolute Neuts (auto) (1.5-7.7) 10^3/ul Absolute Lymphs (auto) (1.0-4.8) 10^3/ul Absolute Monos (auto) (0-0.8) 10^3/ul Absolute Eos (auto) (0-0.6) 10^3/ul Absolute Basos (auto) (0-0.2) 10^3/ul Absolute Nucleated RBC 10^3/ul Nucleated RBC % INR (Anticoag Therapy) (0.77-1.02) APTT (26.0-36.3) seconds D-Dimer, Quantitative (Less Than 230) ng/mL Sodium (139-145) mmol/L Potassium (3.5-5.0) mmol/L Chloride (101-111) mmol/L Carbon Dioxide (22-32) mmol/L Anion Gap (2-11) mmol/L BUN (6-24) mg/dL Creatinine (0.51-0.95) mg/dL Est GFR ( Amer) (>60) Est GFR (Non-Af Amer) (>60) BUN/Creatinine Ratio (8-20) Glucose (70-100) mg/dL Lactic Acid 1.4 (0.5-2.0) mmol/L Calcium (8.6-10.3) mg/dL Magnesium (1.9-2.7) mg/dL Total Bilirubin (0.2-1.0) mg/dL AST (13-39) U/L ALT (7-52) U/L Alkaline Phosphatase (34-104) U/L Ammonia 37 (16-53) mcmol/L Total Creatine Kinase (10-223) U/L Troponin I (<0.04) ng/mL B-Natriuretic Peptide 10 ( - 100) pg/mL Total Protein (6.4-8.9) g/dL Albumin (3.2-5.2) g/dL Globulin (2-4) g/dL Albumin/Globulin Ratio (1-3) TSH (0.34-5.60) mcIU/mL Serum Alcohol (<10) mg/dL Result Diagrams: 03/02/18 22:38 03/02/18 22:38 Lab Statement: Any lab studies that have been ordered have been reviewed, and results considered in the medical decision making process. - Radiology Chest Xray Radiology Interpretation Completed By: ED Physician - NAD - EKG 2236 Cardiac Rate: Tachycardia EKG Rhythm: Sinus Tachycardia - [address] Segment: Non-Specific Ectopy: None EKG Interpretation: nml AVIVCT, nml QTc, and nml axis EKG Comparison: No Significant Change - 12/24/17 Re-Evaluation - Re-Evaluation First Eval Re-Evaluation Time: 23:05 Change: Unchanged Comment: Pt states she can't wait for evaluation. Pt has pulled her own IV, is dressed and standing at the nurse's station. Her speech is clear. Understands that her lab results have not returned and that she could have life threatening lab abnormalities. Pt states she will follow up with her therapist. Pt is clinically sober. Speech is clear and she ambulates without assistance, and without faltering gait. Course/Dx Course Of Treatment: Allergies noted. High blood pressure noted. Patients medications reviewed this visit. Labs showed low magnesium, resulted after pt left AMA. EKG and CXR were normal. She was clinically sober, speech was clear. At 23:05, patient is fully dressed and refuses to stay. Patient signed out AMA. - Diagnoses Differential Diagnosis/HQI/PQRI: Positive: Hypoglycemia, Hypovolemia, Metabolic Reaction, Medication Reaction, Vasovagal Episode Provider Diagnoses: Left against medical advice, Near syncope, Hypomagnesemia, Alcohol abuse, Eating disorder Discharge - Sign-Out/Discharge Documenting (check all that apply): Discharge/Admit/Transfer - signs out AMA - Discharge Plan Condition: Stable Disposition: AGAINST MEDICAL ADVICE Referrals: Derek Torres MD [Primary Care Provider] - Additional Instructions: Please return to the Emergency Department for any new or worsening symptoms. - Billing Disposition and Condition Condition: STABLE Disposition: AMA The documentation as recorded by the Gilberto phipps Tiffany accurately reflects the service I personally performed and the decisions made by , Virginia Velasquez MD.
== END 2018-03-02 23:05 | disposition left against medical advice (07) ==
LOC: ED 22:11
DX: R55 Syncope and collapse (principal); E83.42 Hypomagnesemia; F10.10 Alcohol abuse, uncomplicated; F50.9 Eating disorder, unspecified; R53.83 Other fatigue; R00.0 Tachycardia, unspecified; Z91.5 Personal history of self-harm; Z86.718 Personal history of other venous thrombosis and embolism; K21.9 Gastro-esophageal reflux disease without esophagitis; Z88.6 Allergy status to analgesic agent; F41.0 Panic disorder [episodic paroxysmal anxiety]; F32.9 Major depressive disorder, single episode, unspecified; F90.9 Attention-deficit hyperactivity disorder, unspecified type; Z88.8 Allergy status to other drugs, medicaments and biological substances; F17.210 Nicotine dependence, cigarettes, uncomplicated
CPT/HCPCS: 36415; 71045; 80053; 80320; 82140; 82550; 83605; 83735; 83880; 84443; 84484; 85025; 85379; 85610; 85730; 93005; 99283; G0480

== ENCOUNTER 2018-04-13 23:42 | Emergency (ER) | payer OTHER ==
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
[2018-04-14 01:31] LABS: ABS Basophils 0 10^3/ul (0-0.2); ABS Eosinophils 0.2 10^3/ul (0-0.6); ABS Lymphocytes 2.4 10^3/ul (1.0-4.8); ABS Monocytes 0.4 10^3/ul (0-0.8); ABS Neutrophils 5.4 10^3/ul (1.5-7.7); ABS Nucleated RBC 0 10^3/ul; Eosinophil % 2.1 % (0-6); Hematocrit 35 % (35-47); Hemoglobin 11.8 g/dl (12.0-16.0); Lymphocyte % 28.9 % (25-47); Mean Corpuscular HGB Conc 34 g/dl (31-36); Mean Corpuscular Hemoglobin 30 pg (27-31); Mean Corpuscular Volume 90 fL (80-97); Mean Platelet Volume 7.4 um3 (7.4-10.4); Nucleated Red Blood Cells % 0.1; Platelet Count 286 10^3/ul (150-450); Red Blood Count 3.88 10^6/ul (4.0-5.4); Red Cell Distribution Width 15 % (10.5-15); White Blood Count 8.3 10^3/ul (3.5-10.8)
[2018-04-14 01:35] LABS: Urine Appearance Clear; Urine Blood Negative (Negative); Urine Color Straw; Urine Ketones Negative (Negative); Urine Protein Negative (Negative); Urine Specific Gravity 1.004 (1.010-1.030); Urine Urobilinogen Negative (Negative)
[2018-04-14 01:47] LABS: EGFR Non-African American 61.1 (>60)
[2018-04-14] MEDS ORDERED: metroNIDAZOLE TAB* 250 MG PO ONE (02:13)
[2018-04-14] MEDS ORDERED: Azithromycin TAB* 250 MG PO ONE (02:13)
[2018-04-14] MEDS ORDERED: Tenofovir/Emtricitab 200/300 * TAB PO ONE (02:13)
[2018-04-14] MEDS ORDERED: Levonorgestrel 1.5 MG TAB PO ONE (02:13)
[2018-04-14] MEDS ORDERED: cefTRIAXone VIAL(*) 250 MG VIAL IM ONE (02:13)
[2018-04-14] MEDS ORDERED: Raltegravir* 400 MG TAB PO ONE (02:13)
[2018-04-14] MEDS ORDERED: Lidocaine 1%* 5 ML VIAL ONE (03:22)
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
[2018-04-14 05:10] VITALS: BP 118/67
== END 2018-04-14 03:45 | disposition home or self-care (01) ==
LOC: ED 23:42
DX: T74.21XA Adult sexual abuse, confirmed, initial encounter (principal)
CPT/HCPCS: 36415; 80053; 81003; 81015; 84702; 85025; 86703; 86803; 87086; 87340; 96372; 99284; A9270-GY; J0696

== ENCOUNTER 2018-04-23 11:18 | Emergency (ER) | payer OTHER ==
--- NOTE | 2018-04-23 13:27 | RAD ---
INDICATION: Foot injury COMPARISON: None TECHNIQUE: AP, lateral, and oblique views were obtained. FINDINGS: The bony structures, joint spaces, and soft tissues are normal for age. IMPRESSION: NO ACUTE FRACTURE.
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
[2018-04-23 13:58] VITALS: BP 126/76
== END 2018-04-23 13:59 | disposition home or self-care (01) ==
LOC: ED 11:18
DX: S96.912A Strain of unspecified muscle and tendon at ankle and foot level, left foot, initial encounter (principal); D64.9 Anemia, unspecified; Z86.718 Personal history of other venous thrombosis and embolism; M19.90 Unspecified osteoarthritis, unspecified site; K21.9 Gastro-esophageal reflux disease without esophagitis; F17.210 Nicotine dependence, cigarettes, uncomplicated; W23.0XXA Caught, crushed, jammed, or pinched between moving objects, initial encounter; Y92.9 Unspecified place or not applicable
CPT/HCPCS: 99282

== ENCOUNTER → 2018-06-25 17:18 | Emergency (ER) | payer OTHER ==
[~2018-06-25 17:18] MED LIST changes: +Haloperidol INJ IV/IM* 5 MG/ML AMP ONE
--- NOTE | 2018-06-25 17:53 | ED ---
Psychiatric Complaint - HPI Summary HPI Summary: 27 yo F with "multiple personality disorder" brought in handcuffed by [place] [employer] on status after pt's counselor reported to police that pt reported that she took a handful of Klonopin pills and then changed her mind , and spit the pills back into the bottle. Pt told [employer] that she took the pills because she wanted to , to make her mother happy, but then changed her mind. When [employer] told pt she had to come to the hospital for evaluation because of that statement, pt resisted and fled, and when ultimately [employer] found pt again, pt continued to resist, and had to be handcuffed to be brought to the ED by EMS. Pt was combative and argumentative and aggressive and threatening to all staff. Pt was met in the room upon arrival by Dr. Velasquez, and given Ativan 2mg, Benadryl 50mg and Haldol 5mg IM per the emergency medication kit. Pill bottle with multiple clonazepam pills was with pt. - History Of Current Complaint Chief Complaint: EDMentalHealth Time Seen by Provider: 06/25/18 17:31 Hx Obtained From: Patient, EMS, Other: - [employer] ?: No Onset/Duration: Sudden Onset, Lasting Hours - time of ingestion approx 1/2 hr prior to call to [employer] at 1541pm Timing: Constant Severity Initially: Severe Severity Currently: Severe Character: Angry, Frustrated - combative Aggravating Factor(s): Nothing Alleviating Factor(s): Nothing Associated Signs And Symptoms: Positive: Hostile, Hallucinating - stating she wants her "paci", thinks she is 2 yo. Related History: Positive For: Prior Psychiatric Issues Has Suicidal: Reports: Demonstrates Gesture - puts pills in her mouth, then spits them out Ingestion History: Type/Name Of Drug - clonazepam, Amount Ingested - handful, Approximate Time Of Ingestion - 15:10 - Allergies/Home Medications Allergies/Adverse Reactions: Allergies Allergy/AdvReac Type Severity Reaction Status Date / Time acetaminophen Allergy Nausea And Verified 06/25/18 17:39 Vomiting trazodone Allergy Difficulty Verified 06/25/18 17:39 Swallowing Seasonal Allergy Congestion Uncoded 06/25/18 17:39 Home Medications: Home Medications Norethindrone (NF) [Monica (NF)] 0.35 mg PO DAILY 06/25/18 [History Confirmed 06/25/18] clonazePAM TAB(*) [KlonoPIN TAB(*)] 1 mg PO QID PRN 06/25/18 [History Confirmed 06/25/18] PMH/Surg Hx/FS Hx/Imm Hx Previously Healthy: No Endocrine/Hematology History: Reports: Hx Anemia - using diet to improve anemia , Other Endocrine/Hematological Disorders - Low magnesium Denies: Hx Anticoagulant Therapy, Hx Blood Disorders, Hx Blood Transfusions, Hx Bone Marrow Disease, Hx Diabetes, Hx Systemic Lupus Erythematosus, Hx Sickle Cell Disease, Hx Thyroid Disease, Hx Unexplained Bleeding Cardiovascular History: Reports: Hx Deep Vein Thrombosis, Other Cardiovascular Problems/Disorders - hx syncope, pt states she takes Pindolol for nightmares Denies: Hx Congestive Heart Failure, Hx Hypertension, Hx Pacemaker/ICD Respiratory History: Denies: Hx Asthma GI History: Reports: Hx Gastroesophageal Reflux Disease - controlled with medication History: Reports: Other Problems/Disorders - kidney function is monitored per pt. Denies: Hx Dialysis, Hx Renal Disease Musculoskeletal History: Reports: Hx Arthritis - back, pt was a gymnast Denies: Hx Bursitis, Hx Congenital Bone Abnormalities, Hx Fibromyalgia, Hx Gout, Hx Orthopedic Injury, Hx Osteoporosis, Hx Scoliosis, Hx Tendonitis, Other Musculoskeletal History Sensory History: Denies: Hx Contacts or Glasses, Hx Hearing Aid Opthamlomology History: Denies: Hx Contacts or Glasses Neurological History: Denies: Hx Dementia, Hx Developmental Delay, Hx Headaches, Hx Migraine, Hx Nerve Disease, Hx Seizures, Hx Spinal Cord Injury, Hx Transient Ischemic Attacks (TIA), Other Neuro Impairments/Disorders Psychiatric History: Reports: Hx Anxiety - controlled with medication and therapy, Hx Attention Deficit Hyperactivity Disorder, Hx Eating Disorder, Hx Depression - controlled with medication and therapy, Hx Panic Disorder - ANXIETY , Hx Post Traumatic Stress Disorder, Hx Inpatient Treatment, Hx Community Mental Health Tx, Hx Suicide Attempt, Hx Substance Abuse Denies: Hx Schizophrenia, Hx Bipolar Disorder, Hx of Violent Episodes Against Others, Other Psychiatric Issues/Disorders - Surgical History Surgery Procedure, Year, and Place: wisdom teeth. endoscopy 2015. [facility] [place] 05/25/[place] Hx Anesthesia Reactions: No - Immunization History Date of Tetanus Vaccine: unk Date of Influenza Vaccine: unk Infectious Disease History: No Infectious Disease History: Denies: Hx Clostridium Difficile, Hx Hepatitis, Hx Human Immunodeficiency Virus (HIV), Hx of Known/Suspected MRSA, Hx Shingles, Hx Tuberculosis, History Other Infectious Disease, Traveled Outside the [place] in Last 30 Days - Family History Known Family History: Positive: Hypertension, Other - No suicide, no cancer Negative: Diabetes - Social History Alcohol Use: Weekly Alcohol Amount: 2 x week, 3-4 drinks each time Hx Substance Use: Yes Substance Use Type: Reports: None Hx Tobacco Use: Yes Smoking Status (MU): Current Every Day Smoker Type: Cigarettes Amount Used/How Often: 2-3 CIG/DAY Have You Smoked in the Last Year: - states she smokes about three cigarettes per day Review of Systems Constitutional: Negative Cardiovascular: Negative Respiratory: Negative Gastrointestinal: Negative Skin: Negative Neurological: Negative Psychological: Other - combative, aggressive All Other Systems Reviewed And Are Negative: Yes Physical Exam Triage Information Reviewed: Yes Vital Signs On Initial Exam: Initial Vitals Temp Pulse Resp BP Pulse Ox 98 F 112 19 123/76 97 06/25/18 17:25 06/25/18 17:25 06/25/18 17:25 06/25/18 17:25 06/25/18 17:25 Vital Signs Reviewed: Yes Appearance: Positive: No Pain Distress, Thin. Negative: Signs of Trauma Skin: Positive: Warm, Skin Color Reflects Adequate Perfusion, Dry Head/Face: Positive: Normal Head/Face Inspection Eyes: Positive: EOMI, EDGARD ENT: Positive: Normal ENT inspection Neck: Positive: Supple, Nontender, No Lymphadenopathy Respiratory/Lung Sounds: Positive: Clear to Auscultation, Breath Sounds Present Cardiovascular: Positive: RRR, Pulses are Symmetrical in both Upper and Lower Extremities, S1, S2. Negative: Leg Edema Left, Leg Edema Right Abdomen Description: Positive: Nontender, No Organomegaly, Soft Musculoskeletal: Positive: Strength/ROM Intact. Negative: Edema Left, Edema Right Neurological: Positive: Sensory/Motor Intact, Facial Symmetry, Speech Normal, Other - no focal deficit. Negative: Facial Droop, Slurred Speech Psychiatric: Positive: Patient Uncooperative for Exam AVPU Assessment: Alert - [place] Coma Scale Best Eye Response: 4 - Spontaneous Best Motor Response: 6 - Obeys Commands Best Verbal Response: 4 - Confused - thinks she is 2 yo Coma Scale Total: 14 Diagnostics - Vital Signs Vital Signs Temp Pulse Resp BP Pulse Ox 06/25/18 17:25 98 F 112 19 123/76 97 - Laboratory Result Diagrams: 06/25/18 17:50 06/25/18 17:50 Lab Statement: Any lab studies that have been ordered have been reviewed, and results considered in the medical decision making process. - Radiology right wrist Xray Interpretation: No Acute Changes Radiology Interpretation Completed By: ED Physician - no fracture noted, unofficial, result reported to Flex unit 23:25pm. - EKG 1823 Cardiac Rate: NL EKG Rhythm: Sinus Rhythm - 98 ST Segment: Normal Ectopy: None EKG Interpretation: nl AVIVCT, nl QTc, axis -6, no acute changes EKG Comparison: No Significant Change - c/w 03/02/18 Re-Evaluation - Re-Evaluation First Eval Re-Evaluation Time: 21:05 Change: Improved Comment: states she put pills in her mouth to kill herself and make her mother happy, because her mother doesn't like her, but then changed her mind because she didn't want to , so she spit them out. C/O right wrist pain. Will xray, as this is site that pt had handcuffs. Course/Dx - Course Course Of Treatment: 27 yo F with prior mental health hx, brought in by [employer] 9.41 status, handcuffed after swallowed handful of pills, then spit them out. Told police she wanted to , then changed her mind. Pt was combative for [employer] and EMS and ED staff, medicated on arrival with Haldol 5mg, ativan 2mg and benadryl 50mg. CK elevated, lactate 2.1, alcohol 185. Pt medically cleared after alcohol metabolism. 21:04: The pt is medically cleared for an MHE. Pt is now calm and cooperative, sucking a pacifier. Pt is stable for Flex unit at this time. Care to Dr. Sotomayor at 0115am, pending mental health evaluation. - Differential Dx/Clinical Impression Differential Diagnosis/HQI/PQRI: Positive: Acute Psychosis, Alcohol Intoxication , Bipolar Disorder, Drug Overdose/Intentional, Schizophrenia, Suicidal Gesture Provider Diagnosis: Mental health problem Discharge - Sign-Out/Discharge Documenting (check all that apply): Sign-Out Patient Signing out patient TO: Marin Sotomayor - 0115am 06/26/18, pending MHE. - Discharge Plan Referrals: Derek Torres MD [Primary Care Provider] - - Attestation Statements Document Initiated by Lisa: Yes Documenting Scribe: Bianca Lowry Provider For Whom Lisa is Documenting (Include Credential): Dr. Virginia Velasquez MD Scribe Attestation: Bianca Paz, scribed for Dr. Virginia Velasquez MD on 06/26/18 at 0117. Scribe Documentation Reviewed: Yes Provider Attestation: The documentation as recorded by the Bianca phipps accurately reflects the service I personally performed and the decisions made by me, Dr. Virginia Velasquez MD
[2018-06-25 17:58] LABS: ABS Basophils 0 10^3/ul (0-0.2); ABS Eosinophils 0.1 10^3/ul (0-0.6); ABS Lymphocytes 1.8 10^3/ul (1.0-4.8); ABS Monocytes 0.3 10^3/ul (0-0.8); ABS Nucleated RBC 0 10^3/ul; Eosinophil % 1.3 % (0-6); Hematocrit 37 % (35-47); Hemoglobin 12.7 g/dl (12.0-16.0); Lymphocyte % 29.1 % (25-47); Mean Corpuscular HGB Conc 34 g/dl (31-36); Mean Corpuscular Hemoglobin 32 pg (27-31); Mean Corpuscular Volume 93 fL (80-97); Mean Platelet Volume 7.6 um3 (7.4-10.4); Nucleated Red Blood Cells % 0.1; Platelet Count 333 10^3/ul (150-450); Red Blood Count 3.98 10^6/ul (4.00-5.40); Red Cell Distribution Width 15 % (10.5-15); White Blood Count 6.2 10^3/ul (3.5-10.8)
[2018-06-25 18:18] LABS: EGFR Non-African American 40.7 (>60)
[2018-06-26 02:14] VITALS: BP 133/85
--- NOTE | 2018-06-26 07:46 | RAD ---
INDICATION: Right wrist pain after removal of hand cast COMPARISON: None. TECHNIQUE: 3 views right wrist. REPORT: The visualized bones are properly aligned and well corticated. The joint spaces are normal.There is no fracture, dislocation or other focal osseous abnormality. IMPRESSION: Normal radiograph of the right wrist. If the patient's symptoms persist, follow-up imaging is recommended. R0
--- NOTE | 2018-06-27 19:59 | ED ---
Progress - Consult/PCP Time Called: 21:04 Re-Evaluation - Re-Evaluation First Eval Re-Evaluation Time: 21:05 Change: Improved Comment: states she put pills in her mouth to kill herself and make her mother happy, because her mother doesn't like her, but then changed her mind because she didn't want to , so she spit them out. C/O right wrist pain. Will xray, as this is site that pt had handcuffs. Course/Dx - Course Course Of Treatment: 27 yo F with prior mental health hx, brought in by [employer] 9.41 status, handcuffed after swallowed handful of pills, then spit them out. Told police she wanted to , then changed her mind. Pt was combative for [employer] and EMS and ED staff, medicated on arrival with Haldol 5mg, ativan 2mg and benadryl 50mg. CK elevated, lactate 2.1, alcohol 185. Pt medically cleared after alcohol metabolism. 21:04: The pt is medically cleared for an MHE. Pt is now calm and cooperative, sucking a pacifier. Pt is stable for Flex unit at this time. Care to Dr. Sotomayor at 0115am, pending mental health evaluation. - Diagnoses Provider Diagnoses: Mental health problem Discharge - Sign-Out/Discharge Documenting (check all that apply): Patient Departure - Discharge Plan Condition: Stable Disposition: HOME Patient Education Materials: Suicide Prevention (ED) Referrals: Derek Torres MD [Primary Care Provider] - Additional Instructions: Per completion of a mental health evaluation, you are cleared for release and do not require inpatient psychiatric hospitalization at this time. Please go to nearest emergency room or call 911 if safety concerns arise or condition worsens. [facility]........[phone] Suicide Prevention and Crisis Services........................[phone] National Suicide Prevention Lifeline............................889-495-QBRE ( 3812) [facility].......................[phone] Alcoholics Anonymous...............................................[phone] [facility]..............[phone] [facility] Police..............................................[phone] - [facility] Disposition and Condition Condition: STABLE Disposition: Home - Attestation Statements Document Initiated by Soniaibe: No
== END | disposition home or self-care (01) ==
LOC: ED 17:18
DX: F99 Mental disorder, not otherwise specified (principal); K21.9 Gastro-esophageal reflux disease without esophagitis
CPT/HCPCS: 36415; 80053; 80320; 80329; 82550; 83605; 84443; 84702; 85025; 93005; 99285; G0480; J1200; J1630; J2060

== ENCOUNTER 2018-07-21 13:07 | Emergency (ER) | payer OTHER ==
[2018-07-21 13:24] VITALS: BP 119/73
--- NOTE | 2018-07-21 14:51 | RAD ---
INDICATION: Right ankle injury. TECHNIQUE: 3 views of the right ankle were obtained. FINDINGS: Soft tissue swelling is noted along the anterolateral aspect of the ankle. No fracture is seen. Joint spaces appear maintained. IMPRESSION: SOFT TISSUE SWELLING, NO FRACTURE IS SEEN.
--- NOTE | 2018-07-21 14:53 | RAD ---
INDICATION: Right foot injury. TECHNIQUE: 3 views of the right foot were obtained. FINDINGS: There is lateral soft tissue swelling. The bones are normal alignment. No fracture is seen. Joint spaces appear maintained. IMPRESSION: SOFT TISSUE SWELLING, NO FRACTURE IS SEEN.
--- NOTE | 2018-07-21 15:34 | UC ---
Lower Extremity/Ankle HPI - HPI Summary HPI Summary: This patient is a 27 year old female presenting to [facility] [place] with a chief complaint of right ankle pain since yesterday. Patient states she jumped onto a roof from her window and fell down. The pain is rated 9/10 in severity. Symptoms aggravated by nothing. Symptoms alleviated by nothing. Patient denies any other current medical complaints. - History of Current Complaint Chief Complaint: UCLowerExtremity Stated Complaint: R FOOT INJURY Time Seen by Provider: 07/21/18 14:39 Hx Obtained From: Patient Hx Last Menstrual Period: 3 months ago Onset/Duration: Sudden Onset, Lasting Days, Still Present Severity Currently: Moderate Pain Intensity: 9 Pain Scale Used: 0-10 Numeric Aggravating Factor(s): Standing Alleviating Factor(s): Nothing - Allergies/Home Medications Allergies/Adverse Reactions: Allergies Allergy/AdvReac Type Severity Reaction Status Date / Time acetaminophen Allergy Nausea And Verified 07/21/18 13:25 Vomiting trazodone Allergy Difficulty Verified 07/21/18 13:25 Swallowing Seasonal Allergy Congestion Uncoded 07/21/18 13:25 PMH/Surg Hx/FS Hx/Imm Hx Previously Healthy: Yes Other Endocrine History: Negative: Diabetes Other Cardiovascular History: Negative: Hypertension Other History Of: Negative For: Anticoagulant Therapy - Surgical History Surgical History: Yes Surgery Procedure, Year, and Place: wisdom teeth. endoscopy 2015. [facility] [place] 05/25/17 - Family History Known Family History: Positive: Hypertension, Other - No suicide, no cancer Negative: Diabetes - Social History Alcohol Use: Occasionally Alcohol Amount: 2 x week, 3-4 drinks each time Substance Use Type: None Smoking Status (MU): Current Every Day Smoker Type: Cigarettes Amount Used/How Often: 2-3 CIG/DAY Have You Smoked in the Last Year: - states she smokes about three cigarettes per day Household Exposure Type: Cigarettes - Immunization History Most Recent Influenza Vaccination: 2016 Most Recent Tetanus Shot: <5 YEARS ( OF 09/14/17) Most Recent Pneumonia Vaccination: never Review of Systems Constitutional: Negative - Fever Musculoskeletal: Other: - right ankle swelling All Other Systems Reviewed And Are Negative: Yes Physical Exam - Summary Physical Exam Summary: Appearance: Well-appearing, Well-nourished Skin: Warm, Dry, No rash Eyes: Normal, PERRL, EOMI, sclera anicteric ENT: Normal Neck: Supple, nontender Respiratory: Clear to auscultation Cardiovascular: S1, S2, no murmur, no rub, no gallop Abdomen: Soft, nontender, no organomegaly Bowel sounds: Present Musculoskeletal: Swollen ankle, right, swelling primarily laterally. No abrasion , no ecchymosis. Full ROM, some pain with dorsiflexion. Neurological: Normal, A&Ox3, cranial nerves II-XII WNL, follows commands, gait not tested, sensation intact to pin and light touch Psychiatric: affect normal, behavior appropriate, dressed appropriately, judgment intact Triage Information Reviewed: Yes Vital Signs: Initial Vital Signs Temp 97.9 F 07/21/18 13:21 Pulse 91 07/21/18 13:21 Resp 12 07/21/18 13:21 BP 119/73 07/21/18 13:21 Pulse Ox 99 07/21/18 13:21 Diagnostics - Radiology Foot XR Xray Interpretation: No Acute Changes - Foot XR reveals, per radiologist, IMPRESSION: SOFT TISSUE SWELLING, No fracture is seen. physician has reviewed this radiology report. Radiology Interpretation Completed By: Radiologist Ankle XR Xray Interpretation: No Acute Changes - Ankle XR reveals, per radiologist, IMPRESSION: SOFT TISSUE SWELLING, No fracture is seen. physician has reviewed this radiology report. Radiology Interpretation Completed By: Radiologist Lower Extremity Course/Dx - Course Course Of Treatment: This patient is a 27 year old female presenting to [facility] with a chief complaint of right ankle pain since yesterday. Foot XR reveals, per radiologist, IMPRESSION: SOFT TISSUE SWELLING, No fracture is seen. physician has reviewed this radiology report. Ankle XR reveals, per radiologist , IMPRESSION: SOFT TISSUE SWELLING, No fracture is seen. physician has reviewed this radiology report. Patients injury will be placed in a splint/nikos bandage. Patient is advised to use Motrin, Ice, and Elevation. Patient will be discharged with dx of Ankle sprain. The patient is agreeable with this plan. - Differential Dx/Diagnosis Provider Diagnoses: Right Ankle Sprain Discharge - Sign-Out/Discharge Documenting (check all that apply): Patient Departure All imaging exams completed and their final reports reviewed: Yes - Discharge Plan Condition: Stable Disposition: HOME Patient Education Materials: Ankle Sprain (DC) Referrals: Derek Torres MD [Primary Care Provider] - Additional Instructions: ice ,rest, elevation, weight bearing as tolerated - Attestation Statements Document Initiated by Scribe: Yes Documenting Scribe: Jonathan Mondragon Provider For Whom Scribe is Documenting (Include Credential): Butch Lucio MD Scribe Attestation: Jonathan Paz, scribed for Butch Lucio MD on 07/21/18 at 1540.
== END 2018-07-21 16:00 | disposition home or self-care (01) ==
LOC: UCEAST 13:07
DX: S93.401A Sprain of unspecified ligament of right ankle, initial encounter (principal); W17.89XA Other fall from one level to another, initial encounter; Y93.39 Activity, other involving climbing, rappelling and jumping off; Y92.009 Unspecified place in unspecified non-institutional (private) residence as the place of occurrence of the external cause; Z88.6 Allergy status to analgesic agent; Z88.8 Allergy status to other drugs, medicaments and biological substances; F17.210 Nicotine dependence, cigarettes, uncomplicated
CPT/HCPCS: 99213; G0463